=== PATIENT | male | born 1985 | race Caucasian/White ===

== ENCOUNTER 2017-02-07 09:25 | Inpatient (IN) | payer OTHER ==
[2017-02-07 12:44] VITALS: BMI 20.9
--- NOTE | 2017-02-07 13:24 | HP ---
CIWA Score - CIWA Score Nausea/Vomitin Muscle Tremors: 3 Anxiety: 3 Agitation: 3 Paroxysmal Sweats: 3 Orientation: 0-Oriented Tacttile Disturbances: 2-Mild Itch/Numbness/Burn Auditory Disturbances: 2-Mild Harshness/Frighten Visual Disturbances: 2-Mild Sensitivity Headache: 2-Mild CIWA-Ar Total Score: 23 Admission ROS BHS - HPI Chief Complaint: i am here for detox from alcohol,cocaine Allergies/Adverse Reactions: Allergies Allergy/AdvReac Type Severity Reaction Status Date / Time No Known Allergies Allergy Verified 02/07/17 13:12 History of Present Illness: this 31 years old male with alcohol and cocaine dependence,seeking detox,last treatment [facility] 09/29 to 10/02/16 has multiple admissions in the past on suboxone maintenance 4/1 mgm in am and 2 of the 4/1mgs at night weight loss depression longest period of sobriety 10 months Exam Limitations: No Limitations - Ebola screening Have you traveled outside of the country in the last 21 days: No Have you had contact with anyone from an Ebola affected area: No Have you been sick,other than usual withdrawal symptoms: No Do you have a fever: No - Review of Systems Constitutional: Loss of Appetite, Malaise, Night Sweats, Changes in sleep, Weakness, Unintentional Wgt. Loss EENT: reports: Hearing Loss, Nose Congestion Respiratory: reports: No Symptoms reported Cardiac: reports: No Symptoms Reported, Palpitations GI: reports: Nausea, Poor Appetite, Vomiting, Abdominal cramping : reports: No Symptoms Reported Musculoskeletal: reports: Back Pain, Muscle Pain Integumentary: reports: Dryness Neuro: reports: Headache, Tremors Endocrine: reports: No Symptoms Reported Hematology: reports: No Symptoms Reported Psychiatric: reports: Depressed Other Systems: Reviewed and Negative Patient History - Patient Medical History Hx Anemia: No Hx Asthma: No Hx Chronic Obstructive Pulmonary Disease (COPD): No Hx Cancer: No Hx Cardiac Disorders: No Hx Congestive Heart Failure: No Hx Hypertension: No Hx Hypercholesterolemia: No Hx Pacemaker: No HX Cerebrovascular Accident: No Hx Seizures: No Hx Dementia: No Hx Diabetes: No Hx Gastrointestinal Disorders: No Hx Liver Disease: No Hx Genitourinary Disorders: No Hx Sexually Transmitted Disorders: No Hx Renal Disease (ESRD): No Hx Thyroid Disease: No Hx Human Immunodeficiency Virus (HIV): No (2015 NEGATIVE) Hx Hepatitis C: No (2016 NEGATIVE) Hx Depression: Yes Hx Suicide Attempt: No (denies) Hx Bipolar Disorder: No Hx Schizophrenia: No Other Medical History: no suicidal,no homicidal - Patient Surgical History Past Surgical History: Yes Hx Neurologic Surgery: No Hx Cataract Extraction: No Hx Cardiac Surgery: No Hx Lung Surgery: No Hx Breast Surgery: No Hx Breast Biopsy: No Hx Abdominal Surgery: No Hx Appendectomy: No Hx Cholecystectomy: No Hx Genitourinary Surgery: No Hx Section: No Hx Orthopedic Surgery: No Other Surgical History: nasal surgery in 09/2013 FOR DEVIATED SEPTUM Anesthesia Reaction: No - PPD History Previous Implant?: Yes Implanted On Prior [facility] Admission?: Yes Date: 10/02/15 Results: 3 mm PPD to be Administered?: Yes - Smoking Cessation Smoking history: Current every day smoker Have you smoked in the past 12 months: Yes Aproximately how many cigarettes per day: 40 Cigars Per Day: 0 Hx Chewing Tobacco Use: No Initiated information on smoking cessation: Yes 'Breaking Loose' booklet given: 02/07/17 - Substance & Tx. History Hx Alcohol Use: Yes Hx Substance Use: Yes Substance Use Type: Alcohol, Cocaine Hx Substance Use Treatment: Yes (last [facility] 09/29/17 to 10/03/15) - Substances Abused Alcohol Route: Oral Frequency: Daily Amount used: 3-4 pints vodka or cognac Age of first use: 16 Date of Last Use: 02/07/17 Cocaine Route: Injection Frequency: Daily Amount used: $50 Age of first use: 20 Date of Last Use: 02/06/17 Family Disease History - Family Disease History Family Disease History: Diabetes: Father ( age 32 ,aids), Mother ( age 39, aids ) Admission Physical Exam S - Vital Signs Vital Signs: Vital Signs - 24 hr 02/07/17 12:42 Temperature 97.2 F L Pulse Rate 98 H Respiratory 20 Rate Blood Pressure 121/65 - Physical General Appearance: Yes: Moderate Distress, Tremorous, Irritable, Sweating, Anxious HEENTM: Yes: CHERRIE, Pharynx Normal, Tm's normal Respiratory: Yes: Lungs Clear, Normal Breath Sounds, No Respiratory Distress Neck: Yes: Within Normal Limits, Supple, Trachea in good position Breast: Yes: Within Normal Limits Cardiology: Yes: Within Normal Limits, Regular Rhythm, Regular Rate, S1, S2 Abdominal: Yes: Within Normal Limits, Normal Bowel Sounds, Non Tender, Flat, Soft Genitourinary: Yes: Within Normal Limits Back: Yes: Within Normal Limits, Normal Inspection, Muscle Spasm Musculoskeletal: Yes: full range of Motion, Back pain, Muscle Pain Extremities: Yes: Tremors Neurological: Yes: space engineer II-XII NML intact, Fully Oriented, Alert, Motor Strength 5/5 Integumentary: Yes: Dry Lymphatic: Yes: Within Normal Limits - Diagnostic (1) Alcohol dependence with uncomplicated withdrawal Current Visit: Yes Status: Acute (2) Encounter for monitoring Suboxone maintenance therapy Current Visit: Yes Status: Acute (3) Weight decreased Current Visit: No Status: Acute (4) Cocaine dependence, uncomplicated Current Visit: Yes Status: Acute (5) Nicotine dependence Current Visit: Yes Status: Acute (6) Depression Current Visit: Yes Status: Acute Cleared for Admission [facility] - Detox or Rehab [facility] Level of Care: Medically Managed Detox Regimen/Protocol: Librium [facility] Breath Alcohol Content Breath Alcohol Content: 0.080 Urine Drug Screen - Results Drug Screen Negative: No Urine Drug Screen Results: ARCHIE-Cocaine
[2017-02-07] MEDS ORDERED: MENTHOL/PHENOL 1 EACH UD MM PRN (13:46)
[2017-02-07] MEDS ORDERED: P-EPHED 60MG/TRIPROLIDI 2.5MG TABLET PO PRN (13:46)
[2017-02-07] MEDS ORDERED: MAGNESIUM CITRATE 300 ML BOTTLE PO PRN (13:46)
[2017-02-07] MEDS ORDERED: hydrOXYzine PAMOATE 50 MG CAPSULE (FP) PO PRN (13:46)
[2017-02-07] MEDS ORDERED: LOPERAMIDE HCL 2 MG CAPSULE PO PRN (13:46)
[2017-02-07] MEDS ORDERED: guaiFENesin/D-METHORPHAN HB 10 ML UNIT-DOSE CUPS PO PRN (13:46)
[2017-02-07] MEDS ORDERED: MAG HYDROX/AL HYDROX/SIMETH 30 ML UNIT-DOSE CUP PO PRN (13:46)
[2017-02-07] MEDS ORDERED: MAGNESIUM HYDROX 2400MG/30ML ORAL SUSPENSION 30 ML CUP PO PRN (13:46)
[2017-02-07] MEDS ORDERED: chlordiazePOXIDE HCL 25 MG CAPSULE PO ONE (14:39)
[2017-02-07] MEDS: ACETAMINOPHEN 325 MG TABLET (FP) PO PRN ×2 (15:43→19:53)
[2017-02-07] MEDS: NICOTINE POLACRILEX 4 MG GUM BUC PRN ×4 (15:44→22:15)
[2017-02-07] MEDS: chlordiazePOXIDE HCL 25 MG CAPSULE PO SCH ×2 (17:17→22:15)
[2017-02-07] MEDS: BUPRENORPHINE/NALOXONE 8 MG/2 MG FILM PACKET SL SCH (17:17)
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
[2017-02-07 17:34] LABS: URINE APPEARANCE CLEAR; URINE BILIRUBIN NEGATIVE (NEGATIVE); URINE BLOOD NEGATIVE (NEGATIVE); URINE COLOR LTYELLOW; URINE GLUCOSE (UA) NEGATIVE (NEGATIVE); URINE KETONE NEGATIVE (NEGATIVE); URINE NITRITE NEGATIVE (NEGATIVE); URINE PROTEIN NEGATIVE (NEGATIVE); URINE UROBILINOGEN NEGATIVE mg/dL (0.2-1.0)
[2017-02-07] MEDS: chlordiazePOXIDE HCL 25 MG CAPSULE PO PRN (19:55)
[2017-02-07] MEDS: THIAMINE HCL 100 MG TABLET (FP) PO SCH (22:14)
[2017-02-07] MEDS: ZOLPIDEM TARTRATE 10 MG TABLET (PARK CARE ONLY) PO PRN (22:14)
[2017-02-07 22:30] LABS: URINE LEUK ESTERASE Negative (NEGATIVE)
[2017-02-08] MEDS: NICOTINE POLACRILEX 4 MG GUM BUC PRN ×8 (06:01→22:10)
[2017-02-08] MEDS: BUPRENORPHINE/NALOXONE 2 MG/0.5 MG FILM PACKET SL SCH (06:01)
[2017-02-08] MEDS: chlordiazePOXIDE HCL 25 MG CAPSULE PO SCH ×5 (06:02→22:09)
[2017-02-08 09:54] LABS: MCH 27.5 pg (25.7-33.7); MCHC 32.5 g/dl (32.0-35.9); MEAN CELL VOLUME 84.8 fl (80-96); MEAN PLT VOLUME 10.2 fl (7.5-11.1); PLATELET COUNT 190 K/MM3 (134-434); RDW 13.9 % (11.9-15.9); WHITE BLOOD COUNT 9.2 K/mm3 (4.0-10.0)
[2017-02-08] MEDS: PRENATAL VITAMINS W/ FOLIC ACID TABLET (FP) PO SCH (10:09)
--- NOTE | 2017-02-08 10:38 | PN ---
[facility] CIWA - CIWA Score Nausea/Vomitin-No Nausea/No Vomiting Muscle Tremors: 4-Moderate,w/Arms Extend Anxiety: 4-Mod. Anxious/Guarded Agitation: 4-Moderately Restless Paroxysmal Sweats: 1-Minimal Palms Moist Orientation: 0-Oriented Tacttile Disturbances: 3-Moderate Itch/Numb/Burn Auditory Disturbances: 0-None Visual Disturbances: 0-None Headache: 0-None Present CIWA-Ar Total Score: 16 S Progress Note (SOAP) Subjective: ANXIETY,MUSCLE ACHES,FATIGUE,SWEATS. Objective: 02/08/17 10:37 Vital Signs Temperature 97.5 F L 02/08/17 10:19 Pulse Rate 85 02/08/17 10:19 Respiratory Rate 20 02/08/17 10:19 Blood Pressure 110/61 02/08/17 10:19 O2 Sat by Pulse Oximetry (%) Laboratory Last Values WBC 9.2 K/mm3 (4.0-10.0) 02/08/17 06:00 RBC 4.75 M/mm3 (4.00-5.60) 02/08/17 06:00 Hgb 13.1 GM/dL (11.7-16.9) 02/08/17 06:00 Hct 40.2 % (35.4-49) 02/08/17 06:00 MCV 84.8 fl (80-96) 02/08/17 06:00 MCH 27.5 pg (25.7-33.7) 02/08/17 06:00 MCHC 32.5 g/dl (32.0-35.9) 02/08/17 06:00 RDW 13.9 % (11.9-15.9) 02/08/17 06:00 Plt Count 190 K/MM3 (134-434) D 02/08/17 06:00 MPV 10.2 fl (7.5-11.1) D 02/08/17 06:00 Urine Color Ltyellow 02/07/17 13:23 Urine Appearance Clear 02/07/17 13:23 Urine pH 5.0 (5.0-8.0) 02/07/17 13:23 Ur Specific [place] 1.006 (1.001-1.035) 02/07/17 13:23 Urine Protein Negative (NEGATIVE) 02/07/17 13:23 Urine Glucose (UA) Negative (NEGATIVE) 02/07/17 13:23 Urine Ketones Negative (NEGATIVE) 02/07/17 13:23 Urine Blood Negative (NEGATIVE) 02/07/17 13:23 Urine Nitrite Negative (NEGATIVE) 02/07/17 13:23 Urine Bilirubin Negative (NEGATIVE) 02/07/17 13:23 Urine Urobilinogen Negative mg/dL (0.2-1.0) 02/07/17 13:23 Ur Leukocyte Esterase Negative (NEGATIVE) 02/07/17 13:23 Assessment: 02/08/17 10:38 WITHDRAWAL SX Plan: CONTINUE DETOX
[2017-02-08 10:41] LABS: ALBUMIN 4.3 g/dl (3.4-5.0); ALK PHOS 50 U/L (45-117); ANION GAP 13 (8-16); BILIRUBIN,TOTAL 0.4 mg/dL (0.2-1.0); CALCIUM 8.8 mg/dL (8.5-10.1); CO2 24 mmol/L (21-32); CREATININE 0.9 mg/dL (0.7-1.3); GLUCOSE,RANDOM 83 mg/dL (74-106); SGOT/AST 13 U/L (15-37); SGPT/ALT 17 U/L (12-78); TOT PROT 7.1 g/dl (6.4-8.2)
--- NOTE | 2017-02-08 13:16 | EKG ---
Test Reason : Blood Pressure : / mmHG Vent. Rate : 075 BPM Atrial Rate : 075 BPM P-R Int : 136 ms QRS Dur : 094 ms QT Int : 382 ms P-R-T Axes : 080 084 067 degrees QTc Int : 426 ms NORMAL SINUS RHYTHM RIGHT ATRIAL ENLARGEMENT RIGHT AXIS DEVIATION BORDERLINE ECG NO PREVIOUS ECGS AVAILABLE CLINICAL CORRELATION IS RECOMMENDED Confirmed by SALENA LAWRENCE MD ([id number]) on 02/08/2017 1:16:18 PM Referred By: Confirmed By:SALENA LAWRENCE MD
[2017-02-08] MEDS: chlordiazePOXIDE HCL 25 MG CAPSULE PO PRN ×2 (15:28→19:57)
[2017-02-08] MEDS: BUPRENORPHINE/NALOXONE 8 MG/2 MG FILM PACKET SL SCH (17:13)
[2017-02-08] MEDS: IBUPROFEN 400 MG TABLET (FP) PO PRN (20:00)
[2017-02-08] MEDS: ZOLPIDEM TARTRATE 10 MG TABLET (PARK CARE ONLY) PO PRN (22:09)
[2017-02-08] MEDS: THIAMINE HCL 100 MG TABLET (FP) PO SCH (22:09)
[2017-02-09] MEDS: chlordiazePOXIDE HCL 25 MG CAPSULE PO SCH ×2 (06:14→10:09)
[2017-02-09] MEDS: BUPRENORPHINE/NALOXONE 2 MG/0.5 MG FILM PACKET SL SCH (06:14)
[2017-02-09] MEDS: NICOTINE POLACRILEX 4 MG GUM BUC PRN ×8 (06:17→23:53)
[2017-02-09] MEDS: ACETAMINOPHEN 325 MG TABLET (FP) PO PRN ×2 (07:26→22:06)
[2017-02-09] MEDS: PRENATAL VITAMINS W/ FOLIC ACID TABLET (FP) PO SCH (10:08)
--- NOTE | 2017-02-09 10:33 | PN ---
[facility] CIWA - CIWA Score Nausea/Vomitin-No Nausea/No Vomiting Muscle Tremors: 4-Moderate,w/Arms Extend Anxiety: 4-Mod. Anxious/Guarded Agitation: 4-Moderately Restless Paroxysmal Sweats: 1-Minimal Palms Moist Orientation: 0-Oriented Tacttile Disturbances: 3-Moderate Itch/Numb/Burn Auditory Disturbances: 0-None Visual Disturbances: 0-None Headache: 0-None Present CIWA-Ar Total Score: 16 BHS Progress Note (SOAP) Subjective: ANXIETY,SWEATS, FATIGUE. Objective: 02/09/17 10:32 Vital Signs Temperature 98.4 F 02/09/17 09:48 Pulse Rate 80 02/09/17 09:48 Respiratory Rate 18 02/09/17 09:48 Blood Pressure 112/64 02/09/17 09:48 O2 Sat by Pulse Oximetry (%) Laboratory Last Values WBC 9.2 K/mm3 (4.0-10.0) 02/08/17 06:00 RBC 4.75 M/mm3 (4.00-5.60) 02/08/17 06:00 Hgb 13.1 GM/dL (11.7-16.9) 02/08/17 06:00 Hct 40.2 % (35.4-49) 02/08/17 06:00 MCV 84.8 fl (80-96) 02/08/17 06:00 MCH 27.5 pg (25.7-33.7) 02/08/17 06:00 MCHC 32.5 g/dl (32.0-35.9) 02/08/17 06:00 RDW 13.9 % (11.9-15.9) 02/08/17 06:00 Plt Count 190 K/MM3 (134-434) D 02/08/17 06:00 MPV 10.2 fl (7.5-11.1) D 02/08/17 06:00 Sodium 140 mmol/L (136-145) 02/08/17 06:00 Potassium 4.1 mmol/L (3.5-5.1) 02/08/17 06:00 Chloride 103 mmol/L (98-107) 02/08/17 06:00 Carbon Dioxide 24 mmol/L (21-32) 02/08/17 06:00 Anion Gap 13 (8-16) 02/08/17 06:00 BUN 17 mg/dL (7-18) 02/08/17 06:00 Creatinine 0.9 mg/dL (0.7-1.3) 02/08/17 06:00 Creat Clearance w eGFR > 60 (>60) 02/08/17 06:00 Random Glucose 83 mg/dL (74-106) D 02/08/17 06:00 Calcium 8.8 mg/dL (8.5-10.1) 02/08/17 06:00 Total Bilirubin 0.4 mg/dL (0.2-1.0) D 02/08/17 06:00 AST 13 U/L (15-37) L D 02/08/17 06:00 ALT 17 U/L (12-78) 02/08/17 06:00 Alkaline Phosphatase 50 U/L (45-117) D 02/08/17 06:00 Total Protein 7.1 g/dl (6.4-8.2) 02/08/17 06:00 Albumin 4.3 g/dl (3.4-5.0) 02/08/17 06:00 Urine Color Ltyellow 02/07/17 13:23 Urine Appearance Clear 02/07/17 13:23 Urine pH 5.0 (5.0-8.0) 02/07/17 13:23 Ur Specific [place] 1.006 (1.001-1.035) 02/07/17 13:23 Urine Protein Negative (NEGATIVE) 02/07/17 13:23 Urine Glucose (UA) Negative (NEGATIVE) 02/07/17 13:23 Urine Ketones Negative (NEGATIVE) 02/07/17 13:23 Urine Blood Negative (NEGATIVE) 02/07/17 13:23 Urine Nitrite Negative (NEGATIVE) 02/07/17 13:23 Urine Bilirubin Negative (NEGATIVE) 02/07/17 13:23 Urine Urobilinogen Negative mg/dL (0.2-1.0) 02/07/17 13:23 Ur Leukocyte Esterase Negative (NEGATIVE) 02/07/17 13:23 RPR Titer Nonreactive (NONREACTIVE) 02/08/17 06:00 Assessment: 02/09/17 10:33 WITHDRAWAL SX Plan: CONTINUE DETOX
[2017-02-09] MEDS: chlordiazePOXIDE HCL 25 MG CAPSULE PO PRN (12:13)
[2017-02-09] MEDS: BUPRENORPHINE/NALOXONE 8 MG/2 MG FILM PACKET SL SCH (17:07)
[2017-02-09] MEDS: chlordiazePOXIDE 5 MG CAPSULE PO SCH ×2 (17:07→22:05)
[2017-02-09] MEDS: ZOLPIDEM TARTRATE 10 MG TABLET (PARK CARE ONLY) PO PRN (22:05)
[2017-02-09] MEDS: THIAMINE HCL 100 MG TABLET (FP) PO SCH (22:05)
[2017-02-10] MEDS: chlordiazePOXIDE 5 MG CAPSULE PO SCH ×2 (05:09→10:08)
[2017-02-10] MEDS: NICOTINE POLACRILEX 4 MG GUM BUC PRN ×7 (05:11→20:10)
[2017-02-10] MEDS: BUPRENORPHINE/NALOXONE 2 MG/0.5 MG FILM PACKET SL SCH (07:52)
[2017-02-10] MEDS: chlordiazePOXIDE HCL 25 MG CAPSULE PO PRN ×2 (08:38→13:22)
[2017-02-10] MEDS: ACETAMINOPHEN 325 MG TABLET (FP) PO PRN ×3 (10:06→21:25)
[2017-02-10] MEDS: PRENATAL VITAMINS W/ FOLIC ACID TABLET (FP) PO SCH (10:07)
--- NOTE | 2017-02-10 14:47 | PN ---
BHS Progress Note (SOAP) Subjective: Anxious, H/A, Body Aches, Sweating. Objective: PT. A & O X 3, OBSERVED AMBULATING ON UNIT. NO ACUTE DISTRESS. 02/10/17 14:46 Vital Signs Temperature 97.6 F 02/10/17 08:58 Pulse Rate 74 02/10/17 08:58 Respiratory Rate 18 02/10/17 08:58 Blood Pressure 120/68 02/10/17 08:58 O2 Sat by Pulse Oximetry (%) Laboratory Tests 02/07/17 02/08/17 02/08/17 13:23 06:00 06:00 WBC 9.2 RBC 4.75 Hgb 13.1 Hct 40.2 MCV 84.8 MCH 27.5 MCHC 32.5 RDW 13.9 Plt Count 190 D MPV 10.2 D Sodium 140 Potassium 4.1 Chloride 103 Carbon Dioxide 24 Anion Gap 13 BUN 17 Creatinine 0.9 Creat Clearance w eGFR > 60 Random Glucose 83 D Calcium 8.8 Total Bilirubin 0.4 D AST 13 L D ALT 17 Alkaline Phosphatase 50 D Total Protein 7.1 Albumin 4.3 Urine Color Ltyellow Urine Appearance Clear Urine pH 5.0 Ur Specific [place] 1.006 Urine Protein Negative Urine Glucose (UA) Negative Urine Ketones Negative Urine Blood Negative Urine Nitrite Negative Urine Bilirubin Negative Urine Urobilinogen Negative Ur Leukocyte Esterase Negative RPR Titer 02/08/17 06:00 WBC RBC Hgb Hct MCV MCH MCHC RDW Plt Count MPV Sodium Potassium Chloride Carbon Dioxide Anion Gap BUN Creatinine Creat Clearance w eGFR Random Glucose Calcium Total Bilirubin AST ALT Alkaline Phosphatase Total Protein Albumin Urine Color Urine Appearance Urine pH Ur Specific [place] Urine Protein Urine Glucose (UA) Urine Ketones Urine Blood Urine Nitrite Urine Bilirubin Urine Urobilinogen Ur Leukocyte Esterase RPR Titer Nonreactive LABS NOTED. Assessment: 02/10/17 14:46 WITHDRAWAL SYMPTOMS. Plan: CONTINUE DETOX. INCREASE DAILY PO FLUID INTAKE.
[2017-02-10] MEDS: IBUPROFEN 400 MG TABLET (FP) PO PRN (15:00)
[2017-02-10] MEDS: chlordiazePOXIDE HCL 10 MG CAPSULE PO SCH ×2 (17:18→22:03)
[2017-02-10] MEDS: BUPRENORPHINE/NALOXONE 8 MG/2 MG FILM PACKET SL SCH (17:18)
[2017-02-10] MEDS: THIAMINE HCL 100 MG TABLET (FP) PO SCH (22:03)
[2017-02-11] MEDS: NICOTINE POLACRILEX 4 MG GUM BUC PRN ×4 (00:39→10:10)
[2017-02-11] MEDS: chlordiazePOXIDE HCL 10 MG CAPSULE PO SCH ×2 (05:34→10:10)
[2017-02-11] MEDS: BUPRENORPHINE/NALOXONE 2 MG/0.5 MG FILM PACKET SL SCH (06:49)
[2017-02-11] MEDS: IBUPROFEN 400 MG TABLET (FP) PO PRN (06:53)
--- NOTE | 2017-02-11 09:44 | PN ---
S Progress Note (SOAP) Subjective: OOB AMBULATING ON HALLWAY WITH NO DISTRESS. ALERT O X 3. DECREASED WITHDRAWAL SX. Objective: 02/11/17 09:43 Vital Signs Temperature 97.1 F L 02/11/17 06:00 Pulse Rate 63 02/11/17 06:00 Respiratory Rate 18 02/11/17 06:00 Blood Pressure 105/58 02/11/17 06:00 O2 Sat by Pulse Oximetry (%) Laboratory Last Values WBC 9.2 K/mm3 (4.0-10.0) 02/08/17 06:00 RBC 4.75 M/mm3 (4.00-5.60) 02/08/17 06:00 Hgb 13.1 GM/dL (11.7-16.9) 02/08/17 06:00 Hct 40.2 % (35.4-49) 02/08/17 06:00 MCV 84.8 fl (80-96) 02/08/17 06:00 MCH 27.5 pg (25.7-33.7) 02/08/17 06:00 MCHC 32.5 g/dl (32.0-35.9) 02/08/17 06:00 RDW 13.9 % (11.9-15.9) 02/08/17 06:00 Plt Count 190 K/MM3 (134-434) D 02/08/17 06:00 MPV 10.2 fl (7.5-11.1) D 02/08/17 06:00 Sodium 140 mmol/L (136-145) 02/08/17 06:00 Potassium 4.1 mmol/L (3.5-5.1) 02/08/17 06:00 Chloride 103 mmol/L (98-107) 02/08/17 06:00 Carbon Dioxide 24 mmol/L (21-32) 02/08/17 06:00 Anion Gap 13 (8-16) 02/08/17 06:00 BUN 17 mg/dL (7-18) 02/08/17 06:00 Creatinine 0.9 mg/dL (0.7-1.3) 02/08/17 06:00 Creat Clearance w eGFR > 60 (>60) 02/08/17 06:00 Random Glucose 83 mg/dL (74-106) D 02/08/17 06:00 Calcium 8.8 mg/dL (8.5-10.1) 02/08/17 06:00 Total Bilirubin 0.4 mg/dL (0.2-1.0) D 02/08/17 06:00 AST 13 U/L (15-37) L D 02/08/17 06:00 ALT 17 U/L (12-78) 02/08/17 06:00 Alkaline Phosphatase 50 U/L (45-117) D 02/08/17 06:00 Total Protein 7.1 g/dl (6.4-8.2) 02/08/17 06:00 Albumin 4.3 g/dl (3.4-5.0) 02/08/17 06:00 Urine Color Ltyellow 02/07/17 13:23 Urine Appearance Clear 02/07/17 13:23 Urine pH 5.0 (5.0-8.0) 02/07/17 13:23 Ur Specific [place] 1.006 (1.001-1.035) 02/07/17 13:23 Urine Protein Negative (NEGATIVE) 02/07/17 13:23 Urine Glucose (UA) Negative (NEGATIVE) 02/07/17 13:23 Urine Ketones Negative (NEGATIVE) 02/07/17 13:23 Urine Blood Negative (NEGATIVE) 02/07/17 13:23 Urine Nitrite Negative (NEGATIVE) 02/07/17 13:23 Urine Bilirubin Negative (NEGATIVE) 02/07/17 13:23 Urine Urobilinogen Negative mg/dL (0.2-1.0) 02/07/17 13:23 Ur Leukocyte Esterase Negative (NEGATIVE) 02/07/17 13:23 RPR Titer Nonreactive (NONREACTIVE) 02/08/17 06:00 Assessment: 02/11/17 09:44 DECREASED W/S Plan: CONTINUE DETOX
[2017-02-11] MEDS: PRENATAL VITAMINS W/ FOLIC ACID TABLET (FP) PO SCH (10:10)
[2017-02-11 10:23] VITALS: BP 117/67; PULSE 85; TEMP 97.3
--- NOTE | 2017-02-11 11:12 | DS ---
[facility] Detox Discharge Summary Admission Date: 02/07/17 Discharge Date: 02/11/17 - History Present History: Alcohol Dependence, Cocaine Dependence, MMTP (SUBOXONE MAINTENANCE) Additional Comments: DETOX COMPLETED. ALERT O X 3. NAD. PT TO BE PICKED UP BY [facility] FOR GOING INTO REHAB TODAY. Pertinent Past History: HX DEPRESSION - Physical Exam Results Vital Signs: Vital Signs Temperature 97.3 F L 02/11/17 10:00 Pulse Rate 85 02/11/17 10:00 Respiratory Rate 18 02/11/17 10:00 Blood Pressure 117/67 02/11/17 10:00 O2 Sat by Pulse Oximetry (%) Pertinent Admission Physical Exam Findings: WITHDRAWAL SX Laboratory Last Values WBC 9.2 K/mm3 (4.0-10.0) 02/08/17 06:00 RBC 4.75 M/mm3 (4.00-5.60) 02/08/17 06:00 Hgb 13.1 GM/dL (11.7-16.9) 02/08/17 06:00 Hct 40.2 % (35.4-49) 02/08/17 06:00 MCV 84.8 fl (80-96) 02/08/17 06:00 MCH 27.5 pg (25.7-33.7) 02/08/17 06:00 MCHC 32.5 g/dl (32.0-35.9) 02/08/17 06:00 RDW 13.9 % (11.9-15.9) 02/08/17 06:00 Plt Count 190 K/MM3 (134-434) D 02/08/17 06:00 MPV 10.2 fl (7.5-11.1) D 02/08/17 06:00 Sodium 140 mmol/L (136-145) 02/08/17 06:00 Potassium 4.1 mmol/L (3.5-5.1) 02/08/17 06:00 Chloride 103 mmol/L (98-107) 02/08/17 06:00 Carbon Dioxide 24 mmol/L (21-32) 02/08/17 06:00 Anion Gap 13 (8-16) 02/08/17 06:00 BUN 17 mg/dL (7-18) 02/08/17 06:00 Creatinine 0.9 mg/dL (0.7-1.3) 02/08/17 06:00 Creat Clearance w eGFR > 60 (>60) 02/08/17 06:00 Random Glucose 83 mg/dL (74-106) D 02/08/17 06:00 Calcium 8.8 mg/dL (8.5-10.1) 02/08/17 06:00 Total Bilirubin 0.4 mg/dL (0.2-1.0) D 02/08/17 06:00 AST 13 U/L (15-37) L D 02/08/17 06:00 ALT 17 U/L (12-78) 02/08/17 06:00 Alkaline Phosphatase 50 U/L (45-117) D 02/08/17 06:00 Total Protein 7.1 g/dl (6.4-8.2) 02/08/17 06:00 Albumin 4.3 g/dl (3.4-5.0) 02/08/17 06:00 Urine Color Ltyellow 02/07/17 13:23 Urine Appearance Clear 02/07/17 13:23 Urine pH 5.0 (5.0-8.0) 02/07/17 13:23 Ur Specific [place] 1.006 (1.001-1.035) 02/07/17 13:23 Urine Protein Negative (NEGATIVE) 02/07/17 13:23 Urine Glucose (UA) Negative (NEGATIVE) 02/07/17 13:23 Urine Ketones Negative (NEGATIVE) 02/07/17 13:23 Urine Blood Negative (NEGATIVE) 02/07/17 13:23 Urine Nitrite Negative (NEGATIVE) 02/07/17 13:23 Urine Bilirubin Negative (NEGATIVE) 02/07/17 13:23 Urine Urobilinogen Negative mg/dL (0.2-1.0) 02/07/17 13:23 Ur Leukocyte Esterase Negative (NEGATIVE) 02/07/17 13:23 RPR Titer Nonreactive (NONREACTIVE) 02/08/17 06:00 - Treatment Hospital Course: Detox Protocol Followed, Detoxed Safely, Responded well, Discharged Condition Good, Rehab Referral Accepted Patient has Accepted a Rehab Referral to: [facility] - Medication Discharge Medications: Ambulatory Orders Buprenorphine HCl/Naloxone HCl [Suboxone 4 mg-1 mg Sl Film] 1 each SL DAILY Buprenorphine HCl/Naloxone HCl [Suboxone 4 mg-1 mg Sl Film] 2 each SL HS - Diagnosis (1) Alcohol dependence with uncomplicated withdrawal Current Visit: Yes Status: Acute (2) Cocaine dependence, uncomplicated Current Visit: Yes Status: Acute (3) Nicotine dependence Current Visit: Yes Status: Acute (4) Encounter for monitoring Suboxone maintenance therapy Current Visit: Yes Status: Chronic (5) Weight decreased Current Visit: Yes Status: Acute - AMA Did Patient Leave Against Medical Advice: No
== END 2017-02-11 12:06 | disposition home or self-care (01) | DRG 773 ==
LOC: YASAS 09:25 → Y3N 13:40
PROVIDERS: ADMIT Internal Medicine; ATTEND Internal Medicine
PROC: HZ2ZZZZ Detoxification Services for Substance Abuse Treatment (ICD-10-PCS; principal; 2017-02-07)
DX: F10.230 Alcohol dependence with withdrawal, uncomplicated (principal); F11.20 Opioid dependence, uncomplicated; F14.20 Cocaine dependence, uncomplicated; F17.210 Nicotine dependence, cigarettes, uncomplicated; F19.24 Other psychoactive substance dependence with psychoactive substance-induced mood disorder; F32.9 Major depressive disorder, single episode, unspecified; G47.00 Insomnia, unspecified; Z87.891 Personal history of nicotine dependence
CPT/HCPCS: 36415; 80053; 81003; 85027; 86593; 93005; 93010

== ENCOUNTER 2017-06-14 10:05 | Inpatient (IN) | payer OTHER ==
[2017-06-14 10:08] VITALS: BMI 22.6
--- NOTE | 2017-06-14 12:02 | HP ---
CIWA Score - CIWA Score Nausea/Vomitin-No Nausea/No Vomiting Muscle Tremors: 4-Moderate,w/Arms Extend Anxiety: 4-Mod. Anxious/Guarded Agitation: 4-Moderately Restless Paroxysmal Sweats: 1-Minimal Palms Moist Orientation: 0-Oriented Tacttile Disturbances: 3-Moderate Itch/Numb/Burn (BONE ACHE/HOT/COLD FLASHES) Auditory Disturbances: 0-None Visual Disturbances: 0-None Headache: 0-None Present CIWA-Ar Total Score: 16 Admission ROS S - HPI Chief Complaint: WITHDRAWAL SX FROM ALCOHOL. Allergies/Adverse Reactions: Allergies Allergy/AdvReac Type Severity Reaction Status Date / Time No Known Allergies Allergy Verified 06/14/17 11:43 History of Present Illness: 31 Y/O MALE WITH A HX OF SPORADIC HEROIN USE AND ALCOHOL DEPENDENCE ON SUBOXONE SEEKING DETOX [place]. REPORTS RAN OUT OF SUBOXONE ON Tuesday06/03/17 DUE TO INSURANCE PROBLEMS. USED HEROIN BECAUSE WAS FEELING SICK FROM WITHDRAWAL. REPORTS ALSO DRINKING ALCOHOL UNCONTROLLABLY AND WANTS TREATMENT. Exam Limitations: No Limitations - Ebola screening Have you traveled outside of the country in the last 21 days: No Have you had contact with anyone from an Ebola affected area: No Have you been sick,other than usual withdrawal symptoms: No Do you have a fever: No - Review of Systems Constitutional: Chills, Loss of Appetite, Night Sweats, Changes in sleep, Unintentional Wgt. Loss EENT: reports: Blurred Vision, Tearing, Nose Congestion, Dental Problems ( CAVITIES--SEEING A DENTIST CURRENTLY.) Respiratory: reports: No Symptoms reported Cardiac: reports: Lightheadedness GI: reports: Constipated, Diarrhea, Nausea, Poor Appetite, Poor Fluid Intake, Vomiting : reports: Dysuria Musculoskeletal: reports: Back Pain, Joint Pain, Muscle Pain Integumentary: reports: Bruising (INNER ELBOWS--IVD INJ SITES) Neuro: reports: Headache (HX MIGRAINE HEADACHES), Tremors, Unsteady Gait, Dizziness Endocrine: reports: No Symptoms Reported Hematology: reports: No Symptoms Reported Psychiatric: reports: Orientated x3, Anxious Other Systems: Reviewed and Negative Patient History - Patient Medical History Hx Anemia: No Hx Asthma: No Hx Chronic Obstructive Pulmonary Disease (COPD): No Hx Cancer: No Hx Cardiac Disorders: No Hx Congestive Heart Failure: No Hx Hypertension: No Hx Hypercholesterolemia: No Hx Pacemaker: No HX Cerebrovascular Accident: No Hx Seizures: No Hx Dementia: No Hx Diabetes: No Hx Gastrointestinal Disorders: No Hx Liver Disease: No Hx Genitourinary Disorders: No Hx Sexually Transmitted Disorders: No Hx Renal Disease (ESRD): No Hx Thyroid Disease: No Hx Human Immunodeficiency Virus (HIV): No (2017 NEGATIVE HX) Hx Hepatitis C: No (2017 NEGATIVE HX) Hx Depression: Yes (AND ANXIETY) Hx Suicide Attempt: No (DENIES S/I) Hx Bipolar Disorder: No Hx Schizophrenia: No - Patient Surgical History Past Surgical History: Yes Hx Neurologic Surgery: No Hx Cataract Extraction: No Hx Cardiac Surgery: No Hx Lung Surgery: No Hx Breast Surgery: No Hx Breast Biopsy: No Hx Abdominal Surgery: No Hx Appendectomy: No Hx Cholecystectomy: No Hx Genitourinary Surgery: No Hx Orthopedic Surgery: No Other Surgical History: nasal surgery in 09/2013 FOR DEVIATED SEPTUM Anesthesia Reaction: No - PPD History Previous Implant?: Yes Implanted On Prior [facility] Admission?: Yes Date: 02/09/17 Results: 3 mm PPD to be Administered?: No - Reproductive History Patient is a Female of Child Bearing Age (11 -55 yrs old): No (MALE) - Smoking Cessation Smoking history: Current every day smoker Have you smoked in the past 12 months: Yes Aproximately how many cigarettes per day: 40 Cigars Per Day: 0 Hx Chewing Tobacco Use: No Initiated information on smoking cessation: Yes 'Breaking Loose' booklet given: 06/14/17 - Substance & Tx. History Hx Alcohol Use: Yes (VODKA/COGNAC/BEER) Hx Substance Use: Yes (HEROIN) Substance Use Type: Alcohol, Heroin Hx Substance Use Treatment: Yes (LAST TX AT [facility]) - Substances Abused Heroin Route: Injection Frequency: Daily Amount used: 3 bags Age of first use: 23 Date of Last Use: 06/13/17 Alcohol-cognac/vodka/beer Route: Oral Frequency: Daily Amount used: 3-4 pts./1-6 pk. Age of first use: 16 Date of Last Use: 06/14/17 Family Disease History - Family Disease History Family Disease History: Diabetes: Father ( age 32 ,aids), Mother ( age 39, aids ) Admission Physical Exam BHS - Vital Signs Vital Signs: Vital Signs - 24 hr 06/14/17 10:06 Temperature 97.1 F L Pulse Rate 78 Respiratory 18 Rate Blood Pressure 132/72 - Physical General Appearance: Yes: Moderate Distress, Irritable, Anxious HEENTM: Yes: EOMI, Normocephalic, CHERRIE, Pharynx Normal Respiratory: Yes: Chest Non-Tender, Lungs Clear, Normal Breath Sounds, No Respiratory Distress Neck: Yes: No masses,lesions,Nodules, Supple, Trachea in good position Breast: Yes: Breast Exam Deferred Cardiology: Yes: Regular Rhythm, Regular Rate, S1, S2 Abdominal: Yes: Normal Bowel Sounds, Non Tender, Flat, Soft Genitourinary: Yes: Other (N/C) Back: Yes: Within Normal Limits Musculoskeletal: Yes: full range of Motion, Gait Steady Extremities: Yes: Normal Range of Motion, Non-Tender, Tremors Neurological: Yes: 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 NO REDNESS OR SWELLING.) Lymphatic: Yes: Within Normal Limits - Diagnostic (1) Alcohol dependence with uncomplicated withdrawal Current Visit: Yes Status: Acute (2) Nicotine dependence Current Visit: Yes Status: Acute (3) Encounter for monitoring Suboxone maintenance therapy Current Visit: Yes Status: Chronic (4) Uncomplicated sedative, hypnotic or anxiolytic withdrawal Current Visit: No Status: Inactive (5) Depression with anxiety Current Visit: Yes Status: Chronic Cleared for Admission [facility] - Detox or Rehab [facility] Level of Care: Medically Managed Detox Regimen/Protocol: Valium [facility] Breath Alcohol Content Breath Alcohol Content: 0.008 Urine Drug Screen - Results Drug Screen Negative: No Urine Drug Screen Results: OPI-Opiates
[2017-06-14] MEDS ORDERED: MAGNESIUM HYDROX 2400MG/30ML ORAL SUSPENSION 30 ML CUP PO PRN (12:31)
[2017-06-14] MEDS ORDERED: MAG HYDROX/AL HYDROX/SIMETH 30 ML UNIT-DOSE CUP PO PRN (12:31)
[2017-06-14] MEDS ORDERED: MENTHOL/PHENOL 1 EACH UD MM PRN (12:31)
[2017-06-14] MEDS ORDERED: P-EPHED 60MG/TRIPROLIDI 2.5MG TABLET PO PRN (12:31)
[2017-06-14] MEDS ORDERED: ACETAMINOPHEN 325 MG TABLET (FP) PO PRN (12:31)
[2017-06-14] MEDS ORDERED: LOPERAMIDE HCL 2 MG CAPSULE PO PRN (12:31)
[2017-06-14] MEDS ORDERED: guaiFENesin/D-METHORPHAN HB 10 ML UNIT-DOSE CUPS PO PRN (12:31)
[2017-06-14] MEDS ORDERED: MAGNESIUM CITRATE 300 ML BOTTLE PO PRN (12:31)
[2017-06-14] MEDS ORDERED: diazePAM 5 MG TABLET PO ONE (12:40)
[2017-06-14] MEDS: diazePAM 5 MG TABLET PO SCH ×2 (13:30→22:23)
[2017-06-14] MEDS: NICOTINE 21 MG/24 HOURS TOPICAL PATCH TD SCH (13:30)
[2017-06-14] MEDS: IBUPROFEN 400 MG TABLET (FP) PO PRN (13:36)
[2017-06-14] MEDS: NICOTINE POLACRILEX 4 MG GUM BUC PRN ×2 (13:36→19:18)
[2017-06-14 17:05] LABS: HEMOGLOBIN 13.4 GM/dL (11.7-16.9); MCH 28.4 pg (25.7-33.7); MCHC 33.5 g/dl (32.0-35.9); MEAN CELL VOLUME 84.6 fl (80-96); MEAN PLT VOLUME 9.8 fl (7.5-11.1); PLATELET COUNT 229 K/MM3 (134-434); RBC 4.73 M/mm3 (4.00-5.60); WHITE BLOOD COUNT 6.9 K/mm3 (4.0-10.0)
--- NOTE | 2017-06-14 17:05 | CONSULT ---
[facility] Psychiatric Consult - Data Date of interview: 06/14/17 Admission source: [facility] Identifying data: Another admission to [facility] for this 31 y/o Citizen Of [place]- German male seeking detox treatment on for opioid and alcohol dependence.Patient is single without children,domiciled,currently unemployed and supported by relatives. Substance Abuse History: Confirmed by the patient in this interview. Details in current [facility] report : Smoking history: Current every day smoker. Have you smoked in the past 12 months: Yes. Aproximately how many cigarettes per day: 40. Cigars Per Day: 0. Hx Chewing Tobacco Use: No. Initiated information on smoking cessation: Yes. 'Breaking Loose' booklet given: 06/14/17. - Substance & Tx. History. Hx Alcohol Use: Yes (VODKA/COGNAC/BEER). Hx Substance Use: Yes (HEROIN). Substance Use Type: Alcohol, Heroin. Hx Substance Use Treatment: Yes (LAST TX AT [facility]). - Substances Abused. Heroin. Route: Injection. Frequency: Daily. Amount used: 3 bags. Age of first use: 23. Date of Last Use : 06/13/17. Alcohol-cognac/vodka/beer. Route: Oral. Frequency: Daily. Amount used: 3-4 pts./1-6 pk. Age of first use: 16. Date of Last Use: 06/14/17 Medical History: Patient admits to good general health. History of surgery for deviated septum (2013). Psychiatric History: History of one psychiatric hospitalization ([place]) in 2012.Described by patient as being precipitated by social issues (inclement weather and homelessness).Diagnosed with MDD and Anxiety Disorder.Prescribed wellbutrin,gabapentin and trazodone.Dropped out of [facility]PD care more than six months ago.Mr Bradley declares that he has been off medications (own decision) for several months.Denies history of suicide attempts. Physical/Sexual Abuse/Trauma History: Patient denies. Additional Comment: Urine Drug Screen Results: OPI-Opiates.Noted. Mental Status Exam - Mental Status Exam Alert and Oriented to: Time, Place, Person Cognitive Function: Good Patient Appearance: Well Groomed Mood: Nervous, Withdrawn Affect: Appropriate, Normal Range Patient Behavior: Fatigued, Appropriate, Cooperative Speech Pattern: Clear, Appropriate Voice Loudness: Normal Thought Process: Intact, Goal Oriented Thought Disorder: Not Present Hallucinations: Denies Suicidal Ideation: Denies Homicidal Ideation: Denies Insight/Judgement: Poor Sleep: Poorly, Difficulty falling asleep Appetite: Good Muscle strength/Tone: Normal Gait/Station: Normal Psychiatric Findings - Problem List ([place] 1, 2,3) (1) Alcohol dependence with uncomplicated withdrawal Current Visit: Yes Status: Acute (2) Opioid dependence on agonist therapy Current Visit: Yes Status: Acute (3) Nicotine dependence Current Visit: Yes Status: Acute (4) Drug-induced mood disorder Current Visit: Yes Status: Acute (5) Insomnia Current Visit: Yes Status: Acute - Initial Treatment Plan Initial Treatment Plan: Psychoeducation.Records revisited.Sleep hygiene.Detoxification in progress.Ambien 10 mg po hs.Side effects/benefits discussed with patient.Verbal consent : given.Observation.
[2017-06-14 17:06] LABS: ALBUMIN 4.4 g/dl (3.4-5.0); ANION GAP 11 (8-16); BLOOD UREA NITROGEN 11 mg/dL (7-18); CALCIUM 9.3 mg/dL (8.5-10.1); CHLORIDE 102 mmol/L (98-107); CO2 27 mmol/L (21-32); GLUCOSE,RANDOM 97 mg/dL (74-106); POTASSIUM 4.2 mmol/L (3.5-5.1); SGOT/AST 12 U/L (15-37); SGPT/ALT 18 U/L (12-78); SODIUM 140 mmol/L (136-145)
[2017-06-14 17:08] LABS: ALK PHOS 56 U/L (45-117); BILIRUBIN,TOTAL 0.4 mg/dL (0.2-1.0); CREATININE 0.7 mg/dL (0.7-1.3); TOT PROT 7.5 g/dl (6.4-8.2)
[2017-06-14] MEDS: diazePAM 5 MG TABLET PO PRN (17:17)
[2017-06-14] MEDS ORDERED: BUPRENORPHINE/NALOXONE 8 MG/2 MG FILM PACKET SL SCH ×2 (18:00→22:00)
[2017-06-14] MEDS ORDERED: BUPRENORPHINE/NALOXONE 2 MG/0.5 MG FILM PACKET SL ONE (18:00)
[2017-06-14 19:14] LABS: URINE APPEARANCE CLEAR; URINE BILIRUBIN NEGATIVE (<2.0 mg/dL); URINE BLOOD NEGATIVE (NEGATIVE); URINE COLOR LTYELLOW; URINE GLUCOSE (UA) NEGATIVE (NEGATIVE); URINE KETONE NEGATIVE (NEGATIVE); URINE LEUK ESTERASE NEGATIVE (NEGATIVE); URINE NITRITE NEGATIVE (NEGATIVE); URINE PROTEIN NEGATIVE (NEGATIVE); URINE UROBILINOGEN NEGATIVE mg/dL (0.2-1.0)
[2017-06-14] MEDS ORDERED: BUPRENORPHINE/NALOXONE 8 MG/2 MG FILM PACKET SL ONE (21:45)
[2017-06-14] MEDS ORDERED: MELATONIN 5 MG TABLETS PO PRN (22:00)
[2017-06-14] MEDS: THIAMINE HCL 100 MG TABLET (FP) PO SCH (22:25)
[2017-06-14] MEDS: ZOLPIDEM TARTRATE 10 MG TABLET (PARK CARE ONLY) PO PRN (22:25)
[2017-06-15] MEDS: diazePAM 5 MG TABLET PO SCH ×3 (05:26→22:43)
[2017-06-15] MEDS: BUPRENORPHINE/NALOXONE 8 MG/2 MG FILM PACKET SL SCH ×2 (05:26→17:12)
[2017-06-15] MEDS: NICOTINE POLACRILEX 4 MG GUM BUC PRN ×5 (05:30→22:46)
[2017-06-15] MEDS: NICOTINE 21 MG/24 HOURS TOPICAL PATCH TD SCH (10:43)
[2017-06-15] MEDS: diazePAM 5 MG TABLET PO PRN ×2 (10:43→19:15)
[2017-06-15] MEDS: PRENATAL VITAMINS W/ FOLIC ACID TABLET (FP) PO SCH (10:43)
--- NOTE | 2017-06-15 10:53 | EKG ---
Test Reason : Blood Pressure : / mmHG Vent. Rate : 070 BPM Atrial Rate : 070 BPM P-R Int : 136 ms QRS Dur : 094 ms QT Int : 392 ms P-R-T Axes : 075 076 053 degrees QTc Int : 423 ms NORMAL SINUS RHYTHM POSSIBLE LEFT ATRIAL ENLARGEMENT BORDERLINE ECG WHEN COMPARED WITH ECG OF 07-FEB-2017 16:47, NO SIGNIFICANT CHANGE WAS FOUND Confirmed by ROMMEL MARTINEZ, FEDE ([id number]) on 06/15/2017 10:53:17 AM Referred By: Confirmed By:FEDE CARNEY MD
--- NOTE | 2017-06-15 13:08 | PN ---
S CIWA - CIWA Score Nausea/Vomitin-No Nausea/No Vomiting Muscle Tremors: 3 Anxiety: 4-Mod. Anxious/Guarded Agitation: 2 Paroxysmal Sweats: 3 Orientation: 0-Oriented Tacttile Disturbances: 2-Mild Itch/Numbness/Burn Auditory Disturbances: 0-None Visual Disturbances: 2-Mild Sensitivity Headache: 3-Moderate CIWA-Ar Total Score: 19 BHS Progress Note (SOAP) Subjective: Tremors, Sweating, Anxious, Fatigue, H/A. Objective: PATIENT A & O X 3, OBSERVED AMBULATING ON UNIT. NO ACUTE DISTRESS. 06/15/17 13:06 Vital Signs Temperature 97.5 F L 06/15/17 09:25 Pulse Rate 75 06/15/17 09:25 Respiratory Rate 18 06/15/17 09:25 Blood Pressure 134/68 06/15/17 09:25 O2 Sat by Pulse Oximetry (%) Laboratory Tests 06/14/17 06/14/17 06/14/17 12:00 12:00 12:00 WBC 6.9 RBC 4.73 Hgb 13.4 Hct 40.0 MCV 84.6 MCH 28.4 MCHC 33.5 RDW 14.0 Plt Count 229 D MPV 9.8 Sodium 140 Potassium 4.2 Chloride 102 Carbon Dioxide 27 Anion Gap 11 BUN 11 D Creatinine 0.7 D Creat Clearance w eGFR > 60 Random Glucose 97 Calcium 9.3 Total Bilirubin 0.4 AST 12 L ALT 18 Alkaline Phosphatase 56 Total Protein 7.5 Albumin 4.4 Urine Color Urine Appearance Urine pH Ur Specific [place] Urine Protein Urine Glucose (UA) Urine Ketones Urine Blood Urine Nitrite Urine Bilirubin Urine Urobilinogen Ur Leukocyte Esterase RPR Titer Nonreactive 06/14/17 14:00 WBC RBC Hgb Hct MCV MCH MCHC RDW Plt Count MPV Sodium Potassium Chloride Carbon Dioxide Anion Gap BUN Creatinine Creat Clearance w eGFR Random Glucose Calcium Total Bilirubin AST ALT Alkaline Phosphatase Total Protein Albumin Urine Color Ltyellow Urine Appearance Clear Urine pH 5.0 Ur Specific [place] 1.009 Urine Protein Negative Urine Glucose (UA) Negative Urine Ketones Negative Urine Blood Negative Urine Nitrite Negative Urine Bilirubin Negative Urine Urobilinogen Negative Ur Leukocyte Esterase Negative RPR Titer LABS NOTED. Assessment: 06/15/17 13:07 WITHDRAWAL SYMPTOMS. Plan: CONTINUE DETOX.
[2017-06-15] MEDS: IBUPROFEN 400 MG TABLET (FP) PO PRN (19:11)
[2017-06-15] MEDS: THIAMINE HCL 100 MG TABLET (FP) PO SCH (22:43)
[2017-06-15] MEDS: ZOLPIDEM TARTRATE 10 MG TABLET (PARK CARE ONLY) PO PRN (22:43)
[2017-06-16] MEDS: BUPRENORPHINE/NALOXONE 8 MG/2 MG FILM PACKET SL SCH ×2 (05:34→17:23)
[2017-06-16] MEDS: NICOTINE POLACRILEX 4 MG GUM BUC PRN ×7 (05:34→22:58)
[2017-06-16] MEDS: diazePAM 5 MG TABLET PO PRN ×2 (05:34→13:02)
[2017-06-16] MEDS: PRENATAL VITAMINS W/ FOLIC ACID TABLET (FP) PO SCH (09:48)
[2017-06-16] MEDS: diazePAM 5 MG TABLET PO SCH ×2 (09:49→22:57)
[2017-06-16] MEDS: NICOTINE 21 MG/24 HOURS TOPICAL PATCH TD SCH (09:49)
[2017-06-16] MEDS: DOCUSATE SODIUM 100 MG CAPSULE (FP) PO SCH ×2 (11:12→22:57)
--- NOTE | 2017-06-16 11:13 | PN ---
S CIWA - CIWA Score Nausea/Vomitin-No Nausea/No Vomiting Muscle Tremors: 3 Anxiety: 4-Mod. Anxious/Guarded Agitation: 3 Paroxysmal Sweats: 3 Orientation: 0-Oriented Tacttile Disturbances: 2-Mild Itch/Numbness/Burn Auditory Disturbances: 0-None Visual Disturbances: 2-Mild Sensitivity Headache: 0-None Present CIWA-Ar Total Score: 17 BHS Progress Note (SOAP) Subjective: Sweating, Tremors, Anxious, Constipation. Objective: PATIENT A & O X 3, OBSERVED AMBULATING ON UNIT. NO ACUTE DISTRESS. 06/16/17 11:12 Vital Signs Temperature 98.4 F 06/16/17 09:22 Pulse Rate 85 06/16/17 09:22 Respiratory Rate 18 06/16/17 09:22 Blood Pressure 116/71 06/16/17 09:22 O2 Sat by Pulse Oximetry (%) Laboratory Tests 06/14/17 06/14/17 06/14/17 12:00 12:00 12:00 WBC 6.9 RBC 4.73 Hgb 13.4 Hct 40.0 MCV 84.6 MCH 28.4 MCHC 33.5 RDW 14.0 Plt Count 229 D MPV 9.8 Sodium 140 Potassium 4.2 Chloride 102 Carbon Dioxide 27 Anion Gap 11 BUN 11 D Creatinine 0.7 D Creat Clearance w eGFR > 60 Random Glucose 97 Calcium 9.3 Total Bilirubin 0.4 AST 12 L ALT 18 Alkaline Phosphatase 56 Total Protein 7.5 Albumin 4.4 Urine Color Urine Appearance Urine pH Ur Specific [place] Urine Protein Urine Glucose (UA) Urine Ketones Urine Blood Urine Nitrite Urine Bilirubin Urine Urobilinogen Ur Leukocyte Esterase RPR Titer Nonreactive 06/14/17 14:00 WBC RBC Hgb Hct MCV MCH MCHC RDW Plt Count MPV Sodium Potassium Chloride Carbon Dioxide Anion Gap BUN Creatinine Creat Clearance w eGFR Random Glucose Calcium Total Bilirubin AST ALT Alkaline Phosphatase Total Protein Albumin Urine Color Ltyellow Urine Appearance Clear Urine pH 5.0 Ur Specific [place] 1.009 Urine Protein Negative Urine Glucose (UA) Negative Urine Ketones Negative Urine Blood Negative Urine Nitrite Negative Urine Bilirubin Negative Urine Urobilinogen Negative Ur Leukocyte Esterase Negative RPR Titer LABS NOTED. Assessment: 06/16/17 11:12 WITHDRAWAL SYMPTOMS. Plan: CONTINUE DETOX. COLACE BID FOR CONSTIPATION. INCREASE DAILY PO FLUID INTAKE.
--- NOTE | 2017-06-16 15:17 | PN ---
[facility] Progress Note Note: Patient that he is tolerating current Detox symptoms well. Patient's counselor reports that bed will be available at [facility] ( [facility]) tomorrow. At patient's request, detox medication schedule modified so that patient may be discharged tomorrow, 06/17/2017, to go on to [facility] for Rehab. Krystyna Batista NP
[2017-06-16] MEDS: IBUPROFEN 400 MG TABLET (FP) PO PRN (20:18)
[2017-06-16] MEDS: THIAMINE HCL 100 MG TABLET (FP) PO SCH (22:57)
[2017-06-16] MEDS: ZOLPIDEM TARTRATE 10 MG TABLET (PARK CARE ONLY) PO PRN (22:59)
[2017-06-17] MEDS: BUPRENORPHINE/NALOXONE 8 MG/2 MG FILM PACKET SL SCH (05:47)
[2017-06-17] MEDS: NICOTINE POLACRILEX 4 MG GUM BUC PRN ×2 (05:48→09:47)
[2017-06-17] MEDS: IBUPROFEN 400 MG TABLET (FP) PO PRN (05:52)
[2017-06-17 09:26] VITALS: BP 103/61; PULSE 70; TEMP 95.7
[2017-06-17] MEDS: diazePAM 5 MG TABLET PO SCH (10:47)
[2017-06-17] MEDS: PRENATAL VITAMINS W/ FOLIC ACID TABLET (FP) PO SCH (10:47)
[2017-06-17] MEDS: DOCUSATE SODIUM 100 MG CAPSULE (FP) PO SCH (10:47)
[2017-06-17] MEDS: NICOTINE 21 MG/24 HOURS TOPICAL PATCH TD SCH (10:48)
--- NOTE | 2017-06-17 18:49 | PN ---
S Progress Note (SOAP) Subjective: Patient denies any current Detox symptoms and reports taht he is feeling well overall. Objective: PATIENT A & O X 3, OBSERVED AMBULATING ON UNIT. NO ACUTE DISTRESS. 06/17/17 18:47 Vital Signs Temperature 95.7 F L 06/17/17 09:25 Pulse Rate 70 06/17/17 09:25 Respiratory Rate 18 06/17/17 09:25 Blood Pressure 103/61 06/17/17 09:25 O2 Sat by Pulse Oximetry (%) Laboratory Tests 06/14/17 06/14/17 06/14/17 12:00 12:00 12:00 WBC 6.9 RBC 4.73 Hgb 13.4 Hct 40.0 MCV 84.6 MCH 28.4 MCHC 33.5 RDW 14.0 Plt Count 229 D MPV 9.8 Sodium 140 Potassium 4.2 Chloride 102 Carbon Dioxide 27 Anion Gap 11 BUN 11 D Creatinine 0.7 D Creat Clearance w eGFR > 60 Random Glucose 97 Calcium 9.3 Total Bilirubin 0.4 AST 12 L ALT 18 Alkaline Phosphatase 56 Total Protein 7.5 Albumin 4.4 Urine Color Urine Appearance Urine pH Ur Specific [place] Urine Protein Urine Glucose (UA) Urine Ketones Urine Blood Urine Nitrite Urine Bilirubin Urine Urobilinogen Ur Leukocyte Esterase RPR Titer Nonreactive 06/14/17 14:00 WBC RBC Hgb Hct MCV MCH MCHC RDW Plt Count MPV Sodium Potassium Chloride Carbon Dioxide Anion Gap BUN Creatinine Creat Clearance w eGFR Random Glucose Calcium Total Bilirubin AST ALT Alkaline Phosphatase Total Protein Albumin Urine Color Ltyellow Urine Appearance Clear Urine pH 5.0 Ur Specific [place] 1.009 Urine Protein Negative Urine Glucose (UA) Negative Urine Ketones Negative Urine Blood Negative Urine Nitrite Negative Urine Bilirubin Negative Urine Urobilinogen Negative Ur Leukocyte Esterase Negative RPR Titer LABS NOTED. Assessment: 06/17/17 18:47 COMPLETION OF DETOX REGIMEN. Plan: PATIENT SCHEDULED FOR DISCHARGE FROM DETOX TODAY. PATIENT SCHEDULED TO GO TO [facility] ([place], [place] FOR AFTERCARE.
--- NOTE | 2017-06-17 18:54 | DS ---
[facility] Detox Discharge Summary Admission Date: 06/14/17 Discharge Date: 06/17/17 - History Present History: Alcohol Dependence, Opioid Dependence, Sedative Dependence Additional Comments: PATIENT GOING TO [facility] ([facility]) FOR AFTERCARE. PATIENT WAS DISCHARGED FROM DETOX UNIT IN STABLE MEDICAL CONDITION. Pertinent Past History: Anxiety, Insomnia, History of Suboxone Maintenance Therapy, Nicotine Dependence. - Physical Exam Results Vital Signs: Vital Signs Temperature 95.7 F L 06/17/17 09:25 Pulse Rate 70 06/17/17 09:25 Respiratory Rate 18 06/17/17 09:25 Blood Pressure 103/61 06/17/17 09:25 O2 Sat by Pulse Oximetry (%) Pertinent Admission Physical Exam Findings: WITHDRAWAL SYMPTOMS. Laboratory Tests 06/14/17 06/14/17 06/14/17 12:00 12:00 12:00 WBC 6.9 RBC 4.73 Hgb 13.4 Hct 40.0 MCV 84.6 MCH 28.4 MCHC 33.5 RDW 14.0 Plt Count 229 D MPV 9.8 Sodium 140 Potassium 4.2 Chloride 102 Carbon Dioxide 27 Anion Gap 11 BUN 11 D Creatinine 0.7 D Creat Clearance w eGFR > 60 Random Glucose 97 Calcium 9.3 Total Bilirubin 0.4 AST 12 L ALT 18 Alkaline Phosphatase 56 Total Protein 7.5 Albumin 4.4 Urine Color Urine Appearance Urine pH Ur Specific [place] Urine Protein Urine Glucose (UA) Urine Ketones Urine Blood Urine Nitrite Urine Bilirubin Urine Urobilinogen Ur Leukocyte Esterase RPR Titer Nonreactive 06/14/17 14:00 WBC RBC Hgb Hct MCV MCH MCHC RDW Plt Count MPV Sodium Potassium Chloride Carbon Dioxide Anion Gap BUN Creatinine Creat Clearance w eGFR Random Glucose Calcium Total Bilirubin AST ALT Alkaline Phosphatase Total Protein Albumin Urine Color Ltyellow Urine Appearance Clear Urine pH 5.0 Ur Specific [place] 1.009 Urine Protein Negative Urine Glucose (UA) Negative Urine Ketones Negative Urine Blood Negative Urine Nitrite Negative Urine Bilirubin Negative Urine Urobilinogen Negative Ur Leukocyte Esterase Negative RPR Titer LABS NOTED. - Treatment Hospital Course: Detox Protocol Followed, Detoxed Safely, Responded well, Discharged Condition Good, Rehab Referral Accepted Patient has Accepted a Rehab Referral to: [facility] ([facility]). - Medication Discharge Medications: Ambulatory Orders Gabapentin [Neurontin -] 200 mg PO Q8H 06/14/17 - Diagnosis (1) Alcohol dependence with uncomplicated withdrawal Status: Acute (2) Nicotine dependence Status: Acute (3) Encounter for monitoring Suboxone maintenance therapy Status: Chronic (4) Sedative, hypnotic or anxiolytic dependence with withdrawal, uncomplicated Status: Acute (5) Drug-induced mood disorder Status: Acute (6) Insomnia Status: Acute Qualifiers: Insomnia type: unspecified Qualified Code(s): G47.00 - Insomnia, unspecified (7) Opioid dependence on agonist therapy Status: Acute - AMA Did Patient Leave Against Medical Advice: No
[2017-06-18] MEDS ORDERED: diazePAM 5 MG TABLET PO SCH (10:00)
== END 2017-06-17 11:05 | disposition home or self-care (01) | DRG 773 ==
LOC: YASAS 10:05 → Y3N 12:23
PROVIDERS: ADMIT Internal Medicine; ATTEND Internal Medicine
PROC: HZ2ZZZZ Detoxification Services for Substance Abuse Treatment (ICD-10-PCS; principal; 2017-06-14)
DX: F11.20 Opioid dependence, uncomplicated (principal); F13.230 Sedative, hypnotic or anxiolytic dependence with withdrawal, uncomplicated; F10.230 Alcohol dependence with withdrawal, uncomplicated; F17.210 Nicotine dependence, cigarettes, uncomplicated; F41.8 Other specified anxiety disorders; F19.24 Other psychoactive substance dependence with psychoactive substance-induced mood disorder; G47.00 Insomnia, unspecified; Z51.81 Encounter for therapeutic drug level monitoring
CPT/HCPCS: 36415; 80053; 81003; 85027; 86593; 93005; 93010

== ENCOUNTER 2018-12-29 10:03 | Inpatient (IN) | payer OTHER ==
[2018-12-29 10:23] VITALS: BMI 25.7
--- NOTE | 2018-12-29 12:13 | HP ---
CIWA Score Nausea/Vomitin Muscle Tremors: 3 Anxiety: 2 Agitation: 2 Paroxysmal Sweats: 1-Minimal Palms Moist Orientation: 0-Oriented Tacttile Disturbances: 1-Very Mild Itch/Numbness Auditory Disturbances: 0-None Visual Disturbances: 1-Very Mild Sensitivity Headache: 1-Very Mild CIWA-Ar Total Score: 13 - Admission Criteria OASAS Guidelines: Admission for Medically Managed Detox: Requires at least one of the followin. CIWA greater than 12 2. Seizures within the past 24 hours 3. Delirium tremens within the past 24 hours 4. Hallucinations within the past 24 hours 5. Acute intervention needed for co occurring medical disorder 6. Acute intervention needed for co occurring psychiatric disorder 7. Severe withdrawal that cannot be handled at a lower level of care (continued vomiting, continued diarrhea, abnormal vital signs) requiring intravenous medication and/or fluids 8. Patient presents the following: CIWA greater than 12 Admission Criteria Met: Admission criteria met Admitting History and Physical - Smoking History Smoking history: Current every day smoker Have you smoked in the past 12 months: Yes Aproximately how many cigarettes per day: 40 - Alcohol/Substance Use Hx Alcohol Use: Yes (VODKA/COGNAC/BEER) Admission [facility] Chief Complaint: Job Bradley is a 33 year old male presenting for alcohol and cocaine abuse. Allergies/Adverse Reactions: Allergies Allergy/AdvReac Type Severity Reaction Status Date / Time No Known Allergies Allergy Verified 12/29/18 10:17 History of Present Illness: Job Bradley is a 33 year old male presenting for alcohol and cocaine abuse. Alcohol: 1 pint with 9-10 beers. Daily drinker. Last drink was earlier in the morning. States his first drink was at age 17. Has been drinking heavily for 5 months. Longest period of sobriety was 1 year during which he was attending meetings and going to groups. Unsure of whether of not he has had seizures in the past. Endorses blackouts and falls. Denies head hits. Withdrawal symptoms: tremors, nausea, vomiting, anxiety, chills Cocaine: 60$ or more per day. Smoking and inhalation. Had previous IVDU, not in the last several years. Last use was last night Has been to detox and rehab in the past. After detox plans are to go to rehab. Wanted to go to [place] rehab after completing of detox. Medical History: denies Psychiatric History: anxiety, depression Surgical History: deviated septum surgery Smokinppd Social: apartment, lives with grandfather. Currently unemployed. Stated that will have a job through friend upon completion of rehab. Utox: ARCHIE, BUP TORI: 0.027 Will be admitted for alcohol detox due to expected withdrawal symptoms. Patient will speak to counselor regarding rehab options after detox. Exam Limitations: No Limitations - Ebola screening Have you traveled outside of the country in the last 21 days: No Have you had contact with anyone from an Ebola affected area: No Do you have a fever: No - Review of Systems Constitutional: Chills, Loss of Appetite EENT: reports: Tearing, Other (rhinnorhea) Respiratory: reports: No Symptoms reported Cardiac: reports: Palpitations GI: reports: Diarrhea, Nausea : reports: No Symptoms Reported Musculoskeletal: reports: No Symptoms Reported Integumentary: reports: No Symptoms Reported Neuro: reports: Headache, Tingling Endocrine: reports: No Symptoms Reported Hematology: reports: No Symptoms Reported Psychiatric: reports: Anxious Patient History - Patient Medical History Hx Anemia: No Hx Asthma: No Hx Chronic Obstructive Pulmonary Disease (COPD): No Hx Cancer: No Hx Cardiac Disorders: No Hx Congestive Heart Failure: No Hx Hypertension: No Hx Hypercholesterolemia: No Hx Pacemaker: No HX Cerebrovascular Accident: No Hx Seizures: No Hx Dementia: No Hx Diabetes: No Hx Gastrointestinal Disorders: No Hx Liver Disease: No Hx Genitourinary Disorders: No Hx Sexually Transmitted Disorders: No Hx Renal Disease (ESRD): No Hx Thyroid Disease: No Hx Human Immunodeficiency Virus (HIV): No (2016 NEGATIVE HX) Hx Hepatitis C: No (2017 NEGATIVE HX) Hx Depression: Yes (AND ANXIETY) Hx Suicide Attempt: No (DENIES S/I) Hx Bipolar Disorder: No Hx Schizophrenia: No - Patient Surgical History Past Surgical History: Yes Hx Neurologic Surgery: No Hx Cataract Extraction: No Hx Cardiac Surgery: No Hx Lung Surgery: No Hx Breast Surgery: No Hx Breast Biopsy: No Hx Abdominal Surgery: No Hx Appendectomy: No Hx Cholecystectomy: No Hx Genitourinary Surgery: No Hx Section: No Hx Orthopedic Surgery: No Other Surgical History: nasal surgery in 09/2013 FOR DEVIATED SEPTUM Anesthesia Reaction: No - PPD History Previous Implant?: Yes Documented Results: Negative w/o proof Date: 02/09/17 Results: 3 mm PPD to be Administered?: Yes - Smoking Cessation Smoking history: Current every day smoker Have you smoked in the past 12 months: Yes Aproximately how many cigarettes per day: 40 Cigars Per Day: 0 Hx Chewing Tobacco Use: No Initiated information on smoking cessation: Yes 'Breaking Loose' booklet given: 12/29/18 - Substance & Tx. History Hx Alcohol Use: Yes Hx Substance Use: Yes Substance Use Type: Alcohol, Cocaine, Heroin Hx Substance Use Treatment: Yes (currently on suboxone) - Substances abused Alcohol Substance route: Oral Frequency: Daily Amount used: 1 pint vodka & 8-12 12oz beers Age of first use: 17 Date of last use: 12/29/18 Cocaine Substance route: Smoking Frequency: Daily Amount used: $60 Age of first use: 20 Date of last use: 12/28/18 Admission Physical Exam BHS - Vital Signs Vital Signs: Vital Signs - 24 hr 12/29/18 12/29/18 10:16 10:54 Temperature 98.2 F 98.2 F Pulse Rate 82 82 Respiratory 18 18 Rate Blood Pressure 133/67 133/67 - Physical HEENTM: Yes: EOMI, Normal ENT Inspection, Normocephalic, Normal Voice, CHERRIE, Pharynx Normal Respiratory: Yes: Chest Non-Tender, Lungs Clear, Normal Breath Sounds, No Respiratory Distress, No Accessory Muscle Use Neck: Yes: No masses,lesions,Nodules, Trachea in good position Breast: Yes: Breast Exam Deferred Cardiology: Yes: Regular Rhythm, Regular Rate, S1, S2 Abdominal: Yes: Normal Bowel Sounds, Non Tender, Flat, Soft Genitourinary: Yes: Within Normal Limits Back: Yes: Normal Inspection Musculoskeletal: Yes: full range of Motion Extremities: Yes: Normal Capillary Refill, Normal Inspection, Normal Range of Motion, Non-Tender Neurological: Yes: mammography technologist II-XII NML intact, Fully Oriented, Alert, Motor Strength 5/5 Integumentary: Yes: Normal Color, Dry, Warm, Other (old scars noted from previous injection sites) - Diagnostic (1) Alcohol dependence with uncomplicated withdrawal Current Visit: No Status: Acute (2) Cocaine dependence, uncomplicated Current Visit: No Status: Acute (3) Depression Current Visit: No Status: Acute Qualifiers: Depression Type: unspecified Qualified Code(s): F32.9 - Major depressive disorder, single episode, unspecified (4) Drug-induced mood disorder Current Visit: No Status: Acute (5) Nicotine dependence Current Visit: No Status: Acute (6) Opioid dependence on agonist therapy Current Visit: No Status: Acute Cleared for Admission S - Detox or Rehab [facility] Level of Care: Medically Managed Detox Regimen/Protocol: Librium Breathalyzer - Breathalyzer Breathalyzer: 0.027 Urine Drug Screen - Test Device Lot number: [id number] Expiration date: 08/18/20 - Control Is test valid?: Yes - Results Drug screen NEGATIVE: No Urine drug screen results: ARCHIE-Cocaine, BUP-Suboxone Inpatient Rehab Admission - Rehab Decision to Admit Inpatient rehab admission?: No
[2018-12-29] MEDS ORDERED: MAG HYDROX/AL HYDROX/SIMETH 30 ML UNIT-DOSE CUP PO PRN (12:29)
[2018-12-29] MEDS ORDERED: ACETAMINOPHEN 325 MG TABLET (FP) PO PRN (12:29)
[2018-12-29] MEDS ORDERED: MAGNESIUM HYDROX 2400MG/30ML ORAL SUSPENSION 30 ML CUP PO PRN (12:29)
[2018-12-29] MEDS ORDERED: BISMUTH SUBSALICYLATE 524 MG/30 ML UD PO PRN (12:29)
[2018-12-29] MEDS ORDERED: MAGNESIUM CITRATE 300 ML BOTTLE PO PRN (12:29)
[2018-12-29] MEDS ORDERED: MENTHOL/PHENOL 1 EACH UD MM PRN (12:29)
--- NOTE | 2018-12-29 13:44 | PN ---
Teaching Attending Note Name of Resident: Jean Carlos Martell ATTENDING PHYSICIAN STATEMENT I saw and evaluated the patient. I reviewed the resident's note and discussed the case with the resident. I agree with the resident's findings and plan as documented. SUBJECTIVE: Agree with subjective findings of resident OBJECTIVE: Agree with objective findings of resident ASSESSMENT AND PLAN: Patient appropriate for admission to detox.
[2018-12-29] MEDS: GABAPENTIN 300 MG CAPSULE (FP) PO SCH ×3 (14:01→22:29)
[2018-12-29] MEDS: chlordiazePOXIDE HCL 25 MG CAPSULE PO PRN (14:37)
[2018-12-29] MEDS: NICOTINE POLACRILEX 4 MG GUM BUC PRN ×3 (16:46→21:44)
[2018-12-29] MEDS: chlordiazePOXIDE HCL 25 MG CAPSULE PO SCH ×2 (16:46→22:29)
[2018-12-29 17:04] LABS: HEMATOCRIT 39.2 % (35.4-49); HEMOGLOBIN 12.7 GM/dL (11.7-16.9); MCH 27.3 pg (25.7-33.7); MCHC 32.5 g/dl (32.0-35.9); MEAN PLT VOLUME 9.3 fl (7.5-11.1); PLATELET COUNT 246 K/MM3 (134-434); RBC 4.67 M/mm3 (4.00-5.60); RDW 13.5 % (11.9-15.9)
[2018-12-29 17:14] LABS: ALBUMIN 4.4 g/dl (3.4-5.0); BILIRUBIN,TOTAL 0.2 mg/dL (0.2-1); BLOOD UREA NITROGEN 12.7 mg/dL (7-18); CREATININE 0.8 mg/dL (0.55-1.3); POTASSIUM 4.1 mmol/L (3.5-5.1); TOT PROT 7.4 g/dl (6.4-8.2)
[2018-12-29] MEDS: BUPRENORPHINE/NALOXONE 8 MG/2 MG FILM PACKET SL SCH (19:23)
[2018-12-29] MEDS ORDERED: BUPRENORPHINE/NALOXONE 8 MG/2 MG FILM PACKET SL SCH (22:00)
[2018-12-29] MEDS: THIAMINE HCL 100 MG TABLET (FP) PO SCH (22:29)
[2018-12-29] MEDS: MELATONIN 5 MG TABLETS PO PRN (22:29)
[2018-12-30] MEDS: NICOTINE POLACRILEX 4 MG GUM BUC PRN ×7 (07:07→22:19)
[2018-12-30] MEDS: BUPRENORPHINE/NALOXONE 8 MG/2 MG FILM PACKET SL SCH ×2 (07:07→17:58)
[2018-12-30] MEDS: chlordiazePOXIDE HCL 25 MG CAPSULE PO SCH ×4 (07:07→22:18)
[2018-12-30] MEDS: GABAPENTIN 300 MG CAPSULE (FP) PO SCH ×4 (09:59→22:18)
[2018-12-30] MEDS: PRENATAL VITAMINS W/ FOLIC ACID TABLET (FP) PO SCH (09:59)
[2018-12-30] MEDS: NICOTINE 14 MG/24 HOURS TOPICAL PATCH TD SCH (09:59)
[2018-12-30] MEDS: chlordiazePOXIDE HCL 25 MG CAPSULE PO PRN ×2 (11:50→15:53)
[2018-12-30] MEDS: IBUPROFEN 400 MG TABLET (FP) PO PRN (11:50)
[2018-12-30] MEDS ORDERED: FLU VACCINE QUAD 60 MCG/0.5 ML (MDV 19-20) IM ONE (12:00)
--- NOTE | 2018-12-30 13:51 | PN ---
[facility] CIWA - CIWA Score Nausea/Vomitin-No Nausea/No Vomiting Muscle Tremors: 3 Anxiety: 2 Agitation: 3 Paroxysmal Sweats: 3 Orientation: 0-Oriented Tacttile Disturbances: 0-None Auditory Disturbances: 0-None Visual Disturbances: 0-None Headache: 0-None Present CIWA-Ar Total Score: 11 S Progress Note (SOAP) Subjective: restless sweats agitation interrupted sleep Objective: 12/30/18 13:50 Vital Signs Temperature 97.9 F 12/30/18 09:33 Pulse Rate 74 12/30/18 09:33 Respiratory Rate 16 12/30/18 09:33 Blood Pressure 124/66 12/30/18 09:33 O2 Sat by Pulse Oximetry (%) Laboratory Tests 12/29/18 12/29/18 12/29/18 13:00 13:00 13:00 WBC 7.0 RBC 4.67 Hgb 12.7 Hct 39.2 MCV 84.0 MCH 27.3 MCHC 32.5 RDW 13.5 Plt Count 246 MPV 9.3 Sodium 140 Potassium 4.1 Chloride 108 H Carbon Dioxide 25 Anion Gap 7 L BUN 12.7 Creatinine 0.8 Est GFR (CKD-EPI)AfAm 136.99 Est GFR (CKD-EPI)NonAf 118.20 Random Glucose 80 Calcium 9.0 Total Bilirubin 0.2 AST 17 ALT 26 Alkaline Phosphatase 57 Total Protein 7.4 Albumin 4.4 RPR Titer Nonreactive HIV 1&2 Antibody Screen HIV P24 Antigen 12/30/18 05:50 WBC RBC Hgb Hct MCV MCH MCHC RDW Plt Count MPV Sodium Potassium Chloride Carbon Dioxide Anion Gap BUN Creatinine Est GFR (CKD-EPI)AfAm Est GFR (CKD-EPI)NonAf Random Glucose Calcium Total Bilirubin AST ALT Alkaline Phosphatase Total Protein Albumin RPR Titer HIV 1&2 Antibody Screen Negative HIV P24 Antigen Negative labs noted aaox3 ambulating no acute distress Assessment: 12/30/18 13:50 withdrawal sx Plan: continue detox increase fluids
--- NOTE | 2018-12-30 15:47 | CONSULT ---
[facility] Psychiatric Consult - Data Date of interview: 12/30/18 Admission source: [facility] Identifying data: This is one of multiple admissions to [facility] for this 33 y/ o [place] male self-referred for detoxification (PEPPER issues : opioid, cocaine, alcohol). Interviewed on . Patient is single without children, domiciled (lives with grand father), unemployed and supported by relatives. Substance Abuse History: Discussed with the patient. Gave history of substance use concordant with current [facility] report as follows : Smoking history: Current every day smoker. Have you smoked in the past 12 months: Yes. Aproximately how many cigarettes per day: 40. Cigars Per Day: 0. Hx Chewing Tobacco Use: No. Initiated information on smoking cessation: Yes. 'Breaking Loose' booklet given: 12/29/18. - Substance & Tx. History. Hx Alcohol Use: Yes. Hx Substance Use: Yes. Substance Use Type: Alcohol, Cocaine, Heroin. Hx Substance Use Treatment: Yes (currently on suboxone). - Substances abused. Alcohol. Substance route: Oral. Frequency: Daily. Amount used: 1 pint vodka & 8-12 12oz beers. Age of first use: 17. Date of last use: 12/29/18. Cocaine. Substance route: Smoking. Frequency: Daily. Amount used: $60. Age of first use: 20. Date of last use: 12/28/18 Medical History: Patient endorses good general health. History of surgery for deviated septum (2013). Psychiatric History: Patient, in this interview, admits to a history of two psychiatric hospitalizations (2011 + 2012) at an institution in [place] and [facility] ([facility]). He endorses the diagnoses of MDD , ADHD and Anxiety Disorder. Mr Bradley indicates past treatment with various formulations (wellbutrin, gabapentin, ritalin, trazodone, seroquel). He aknowledges a chronic history of non-adherence to medications + psychiatric OPD care. Patient is currently on suboxone maintenance at [facility]. He reports that, during his admission to the [facility] in [place] (06/2018), he was medicated with depakote + wellbutrin. No reported history of suicide attempts. Physical/Sexual Abuse/Trauma History: Patient denies history of abuse. Additional Comment: Urine drug screen results: ARCHIE-Cocaine, BUP-Suboxone. Noted. Mental Status Exam - Mental Status Exam Alert and Oriented to: Time, Place, Person Cognitive Function: Good Patient Appearance: Well Groomed Mood: Nervous, Withdrawn, Anxious Affect: Mood Congruent, Constricted Patient Behavior: Fatigued, Cooperative Speech Pattern: Clear, Appropriate Voice Loudness: Normal Thought Process: Intact, Goal Oriented Thought Disorder: Not Present Hallucinations: Denies Suicidal Ideation: Denies Homicidal Ideation: Denies Insight/Judgement: Poor Sleep: Poorly, Difficulty falling asleep Appetite: Good Muscle strength/Tone: Normal Gait/Station: Normal Psychiatric Findings - Problem List ([place]cker 1, 2,3) (1) Alcohol dependence with uncomplicated withdrawal Current Visit: Yes Status: Acute (2) Opioid dependence on agonist therapy Current Visit: Yes Status: Chronic (3) Cocaine dependence, uncomplicated Current Visit: Yes Status: Chronic (4) Nicotine dependence Current Visit: Yes Status: Chronic (5) Drug-induced mood disorder Current Visit: Yes Status: Chronic (6) History of depression Current Visit: Yes Status: Chronic (7) Anxiety disorder Current Visit: Yes Status: Chronic (8) History of attention deficit hyperactivity disorder (ADHD) Current Visit: Yes Status: Chronic Comment: Self-report. (9) Insomnia Current Visit: Yes Status: Chronic Qualifiers: Insomnia type: unspecified Qualified Code(s): G47.00 - Insomnia, unspecified (10) Non-compliance Current Visit: Yes Status: Chronic - Initial Treatment Plan Initial Treatment Plan: Records revisited. Case discussed with counselor Refugio (facilitation of transition to rehabilitation). Psychoeducation. Sleep hygiene. AA/NA meetings. Patient is requesting restart of wellbutrin and trazodone. Side effects/benefits of both drugs are explained to the patient. He is made aware of risk of priapism (trazodone) and seizures (wellbutrin). Denies history of adverse effects on these medications. " I did well on wellbutrin and did not have any problem with trazodone." Mr Bradley provided verbal consent to . Ordered : wellbutrin 75 mg po daily + trazodone 50 mg po hs. Observation.
[2018-12-30] MEDS: THIAMINE HCL 100 MG TABLET (FP) PO SCH (22:18)
[2018-12-30] MEDS: traZODone HCL 50 MG TABLET (FP) PO SCH (22:18)
[2018-12-31] MEDS: BUPRENORPHINE/NALOXONE 8 MG/2 MG FILM PACKET SL SCH ×2 (06:59→17:58)
[2018-12-31] MEDS: chlordiazePOXIDE HCL 25 MG CAPSULE PO SCH ×4 (06:59→22:13)
[2018-12-31] MEDS: IBUPROFEN 400 MG TABLET (FP) PO PRN (08:11)
[2018-12-31] MEDS: NICOTINE POLACRILEX 4 MG GUM BUC PRN ×5 (08:55→22:13)
[2018-12-31] MEDS: buPROPion HCL 75 MG TABLET PO SCH (10:57)
[2018-12-31] MEDS: GABAPENTIN 300 MG CAPSULE (FP) PO SCH ×4 (10:58→22:13)
[2018-12-31] MEDS: NICOTINE 14 MG/24 HOURS TOPICAL PATCH TD SCH (11:07)
[2018-12-31] MEDS: PRENATAL VITAMINS W/ FOLIC ACID TABLET (FP) PO SCH (11:08)
[2018-12-31] MEDS: NICOTINE 21 MG/24 HOURS TOPICAL PATCH TD SCH (11:34)
[2018-12-31] MEDS: chlordiazePOXIDE HCL 25 MG CAPSULE PO PRN (13:54)
--- NOTE | 2018-12-31 17:55 | PN ---
S CIWA - CIWA Score Nausea/Vomitin-Mild Nausea/No Vomiting Muscle Tremors: 4-Moderate,w/Arms Extend Anxiety: 2 Agitation: 2 Paroxysmal Sweats: 3 Orientation: 0-Oriented Tacttile Disturbances: 0-None Auditory Disturbances: 0-None Visual Disturbances: 0-None Headache: 0-None Present CIWA-Ar Total Score: 12 BHS Progress Note (SOAP) Subjective: Interrupted sleep, anxious, agitated. Patient stated he smokes juul plus 1.5 pack cigarettes daily and has crave for smoking and would like higher dose of nicotine patch. Objective: 12/31/18 17:53 Last Vital Signs Temp Pulse Resp BP Pulse Ox 97.2 F L 71 16 106/59 L 12/31/18 17:50 12/31/18 17:50 12/31/18 17:50 12/31/18 17:50 Laboratory Tests 12/29/18 12/29/18 12/29/18 13:00 13:00 13:00 WBC 7.0 RBC 4.67 Hgb 12.7 Hct 39.2 MCV 84.0 MCH 27.3 MCHC 32.5 RDW 13.5 Plt Count 246 MPV 9.3 Sodium 140 Potassium 4.1 Chloride 108 H Carbon Dioxide 25 Anion Gap 7 L BUN 12.7 Creatinine 0.8 Est GFR (CKD-EPI)AfAm 136.99 Est GFR (CKD-EPI)NonAf 118.20 Random Glucose 80 Calcium 9.0 Total Bilirubin 0.2 AST 17 ALT 26 Alkaline Phosphatase 57 Total Protein 7.4 Albumin 4.4 RPR Titer Nonreactive HIV 1&2 Antibody Screen HIV P24 Antigen 12/30/18 05:50 WBC RBC Hgb Hct MCV MCH MCHC RDW Plt Count MPV Sodium Potassium Chloride Carbon Dioxide Anion Gap BUN Creatinine Est GFR (CKD-EPI)AfAm Est GFR (CKD-EPI)NonAf Random Glucose Calcium Total Bilirubin AST ALT Alkaline Phosphatase Total Protein Albumin RPR Titer HIV 1&2 Antibody Screen Negative HIV P24 Antigen Negative Labs reviewed Assessment: 12/31/18 17:53 Withdrawal sxs Plan: Continue detox Encouraged PO water intake Nicotine dependence: nicoderm patch 21mg daily (14mg patch discontinued), continue nicorette gum prn)
[2018-12-31] MEDS: traZODone HCL 50 MG TABLET (FP) PO SCH (22:13)
[2018-12-31] MEDS: THIAMINE HCL 100 MG TABLET (FP) PO SCH (22:13)
[2019-01-01] MEDS: NICOTINE POLACRILEX 4 MG GUM BUC PRN ×8 (01:53→21:39)
[2019-01-01] MEDS: hydrOXYzine PAMOATE 25 MG CAPSULE (FP) PO PRN ×3 (01:57→22:23)
[2019-01-01] MEDS: BUPRENORPHINE/NALOXONE 8 MG/2 MG FILM PACKET SL SCH ×2 (06:58→17:07)
[2019-01-01] MEDS: chlordiazePOXIDE HCL 10 MG CAPSULE PO SCH ×4 (06:58→22:20)
[2019-01-01] MEDS: PRENATAL VITAMINS W/ FOLIC ACID TABLET (FP) PO SCH (10:40)
[2019-01-01] MEDS: buPROPion HCL 75 MG TABLET PO SCH (10:40)
[2019-01-01] MEDS: NICOTINE 21 MG/24 HOURS TOPICAL PATCH TD SCH (10:40)
[2019-01-01] MEDS: GABAPENTIN 300 MG CAPSULE (FP) PO SCH ×4 (10:40→22:19)
[2019-01-01] MEDS: chlordiazePOXIDE HCL 10 MG CAPSULE PO PRN ×2 (13:55→19:15)
--- NOTE | 2019-01-01 14:07 | PN ---
S CIWA - CIWA Score Nausea/Vomitin-No Nausea/No Vomiting Muscle Tremors: 3 Anxiety: 1-Mildly Anxious Agitation: 2 Paroxysmal Sweats: 2 Orientation: 0-Oriented Tacttile Disturbances: 0-None Auditory Disturbances: 0-None Visual Disturbances: 0-None Headache: 0-None Present CIWA-Ar Total Score: 8 BHS Progress Note (SOAP) Subjective: anxiety sweats chills restless Objective: 01/01/19 14:06 Vital Signs Temperature 98.4 F 01/01/19 13:12 Pulse Rate 85 01/01/19 13:12 Respiratory Rate 18 01/01/19 13:12 Blood Pressure 112/71 01/01/19 13:12 O2 Sat by Pulse Oximetry (%) aaox3 ambulating no acute distress Assessment: 01/01/19 14:06 withdrawal sx Plan: continue detox increase fluids
[2019-01-01] MEDS: ACETAMINOPHEN 325 MG TABLET (FP) PO PRN ×2 (14:34→22:23)
[2019-01-01] MEDS: IBUPROFEN 400 MG TABLET (FP) PO PRN (18:26)
[2019-01-01] MEDS: traZODone HCL 50 MG TABLET (FP) PO SCH (22:19)
[2019-01-01] MEDS: THIAMINE HCL 100 MG TABLET (FP) PO SCH (22:19)
[2019-01-02] MEDS: IBUPROFEN 400 MG TABLET (FP) PO PRN ×2 (01:26→06:30)
[2019-01-02] MEDS: NICOTINE POLACRILEX 4 MG GUM BUC PRN ×8 (01:28→21:12)
[2019-01-02] MEDS: BUPRENORPHINE/NALOXONE 8 MG/2 MG FILM PACKET SL SCH ×2 (05:58→17:11)
[2019-01-02] MEDS: chlordiazePOXIDE HCL 10 MG CAPSULE PO SCH ×2 (05:58→17:11)
[2019-01-02] MEDS: GABAPENTIN 300 MG CAPSULE (FP) PO SCH ×4 (10:53→21:11)
[2019-01-02] MEDS: PRENATAL VITAMINS W/ FOLIC ACID TABLET (FP) PO SCH (10:53)
[2019-01-02] MEDS: buPROPion HCL 75 MG TABLET PO SCH (10:53)
[2019-01-02] MEDS: NICOTINE 21 MG/24 HOURS TOPICAL PATCH TD SCH (10:53)
[2019-01-02] MEDS: hydrOXYzine PAMOATE 25 MG CAPSULE (FP) PO PRN ×2 (10:56→21:16)
[2019-01-02] MEDS: ACETAMINOPHEN 325 MG TABLET (FP) PO PRN ×2 (12:08→20:22)
--- NOTE | 2019-01-02 12:09 | PN ---
S CIWA - CIWA Score Nausea/Vomitin-No Nausea/No Vomiting Muscle Tremors: 1-None Visible, but [place] Anxiety: 1-Mildly Anxious Agitation: 1-Slight > Activity Paroxysmal Sweats: No Perspiration Orientation: 0-Oriented Tacttile Disturbances: 0-None Auditory Disturbances: 0-None Visual Disturbances: 0-None Headache: 0-None Present CIWA-Ar Total Score: 3 BHS Progress Note (SOAP) Subjective: anxiety restless feeling better. I need a discharge for 7am Objective: 01/02/19 12:09 Vital Signs Temperature 96.6 F L 01/02/19 09:34 Pulse Rate 73 01/02/19 09:34 Respiratory Rate 18 01/02/19 09:34 Blood Pressure 105/59 L 01/02/19 09:34 O2 Sat by Pulse Oximetry (%) aaox3 ambulating no acute distress Assessment: 01/02/19 12:09 mild withdrawal sx Plan: continue detox d/c in am
[2019-01-02 20:57] VITALS: PULSE 77
[2019-01-02] MEDS: traZODone HCL 50 MG TABLET (FP) PO SCH (21:11)
[2019-01-02] MEDS: MELATONIN 5 MG TABLETS PO PRN (21:12)
[2019-01-02] MEDS: THIAMINE HCL 100 MG TABLET (FP) PO SCH (21:12)
[2019-01-03] MEDS: NICOTINE POLACRILEX 4 MG GUM BUC PRN ×2 (00:31→06:19)
[2019-01-03] MEDS: IBUPROFEN 400 MG TABLET (FP) PO PRN (00:35)
[2019-01-03] MEDS ORDERED: chlordiazePOXIDE HCL 10 MG CAPSULE PO ONE (05:00)
[2019-01-03] MEDS: BUPRENORPHINE/NALOXONE 8 MG/2 MG FILM PACKET SL SCH (06:16)
[2019-01-03 07:39] VITALS: BP 120/65; TEMP 98.4
--- NOTE | 2019-01-03 09:22 | DS ---
[facility] Detox Discharge Summary Admission Date: 12/29/18 Discharge Date: 01/03/19 - History Present History: Alcohol Dependence, Opioid Dependence, Sedative Dependence - Physical Exam Results Vital Signs: Vital Signs Temperature 98.4 F 01/03/19 07:39 Pulse Rate 77 01/03/19 07:39 Respiratory Rate 18 01/03/19 07:39 Blood Pressure 120/65 01/03/19 07:39 O2 Sat by Pulse Oximetry (%) Pertinent Admission Physical Exam Findings: pt arrived in withdrawals Laboratory Tests 12/29/18 12/29/18 12/29/18 13:00 13:00 13:00 WBC 7.0 RBC 4.67 Hgb 12.7 Hct 39.2 MCV 84.0 MCH 27.3 MCHC 32.5 RDW 13.5 Plt Count 246 MPV 9.3 Sodium 140 Potassium 4.1 Chloride 108 H Carbon Dioxide 25 Anion Gap 7 L BUN 12.7 Creatinine 0.8 Est GFR (CKD-EPI)AfAm 136.99 Est GFR (CKD-EPI)NonAf 118.20 Random Glucose 80 Calcium 9.0 Total Bilirubin 0.2 AST 17 ALT 26 Alkaline Phosphatase 57 Total Protein 7.4 Albumin 4.4 RPR Titer Nonreactive HIV 1&2 Antibody Screen HIV P24 Antigen 12/30/18 05:50 WBC RBC Hgb Hct MCV MCH MCHC RDW Plt Count MPV Sodium Potassium Chloride Carbon Dioxide Anion Gap BUN Creatinine Est GFR (CKD-EPI)AfAm Est GFR (CKD-EPI)NonAf Random Glucose Calcium Total Bilirubin AST ALT Alkaline Phosphatase Total Protein Albumin RPR Titer HIV 1&2 Antibody Screen Negative HIV P24 Antigen Negative Vital Signs Temperature 98.4 F 01/03/19 07:39 Pulse Rate 77 01/03/19 07:39 Respiratory Rate 18 01/03/19 07:39 Blood Pressure 120/65 01/03/19 07:39 O2 Sat by Pulse Oximetry (%) pt is aaox3 ambulating no acute distress - Treatment Hospital Course: Detox Protocol Followed, Detoxed Safely, Responded well, Discharged Condition Good, Rehab Referral Accepted - Medication Discharge Medications: Ambulatory Orders Gabapentin [Neurontin -] 300 mg PO QID 06/14/17 Buprenorphine/Naloxone [Suboxone 8Mg/2Mg Sl Film -] 1 each SL BID 12/29/18 Valproic Acid [Depakene] 250 mg PO Q12H 12/29/18 - Diagnosis (1) Alcohol dependence with uncomplicated withdrawal Status: Chronic (2) Depression Status: Acute Qualifiers: Depression Type: unspecified Qualified Code(s): F32.9 - Major depressive disorder, single episode, unspecified (3) Sedative, hypnotic or anxiolytic dependence with withdrawal, uncomplicated Status: Chronic (4) Anxiety disorder Status: Chronic (5) Cannabis dependence Status: Chronic (6) Cocaine dependence, uncomplicated Status: Chronic (7) Depression with anxiety Status: Chronic (8) Drug-induced mood disorder Status: Chronic (9) Encounter for monitoring Suboxone maintenance therapy Status: Chronic (10) History of attention deficit hyperactivity disorder (ADHD) Status: Chronic (11) History of depression Status: Chronic (12) Insomnia Status: Chronic Qualifiers: Insomnia type: unspecified Qualified Code(s): G47.00 - Insomnia, unspecified (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
== END 2019-01-03 08:17 | disposition home or self-care (01) | DRG 773 ==
LOC: YASAS 10:03 → Y6N 12:58
PROVIDERS: ADMIT Allergy & Immunology; ATTEND Allergy & Immunology
PROC: HZ2ZZZZ Detoxification Services for Substance Abuse Treatment (ICD-10-PCS; principal; 2018-12-29)
DX: F10.230 Alcohol dependence with withdrawal, uncomplicated (principal); F11.20 Opioid dependence, uncomplicated; F13.230 Sedative, hypnotic or anxiolytic dependence with withdrawal, uncomplicated; F14.20 Cocaine dependence, uncomplicated; F12.20 Cannabis dependence, uncomplicated; F17.210 Nicotine dependence, cigarettes, uncomplicated; F41.9 Anxiety disorder, unspecified; F32.9 Major depressive disorder, single episode, unspecified; F19.24 Other psychoactive substance dependence with psychoactive substance-induced mood disorder; G47.00 Insomnia, unspecified; Z91.19 Patient's noncompliance with other medical treatment and regimen
CPT/HCPCS: 36415; 80053; 85027; 86593; 87389; Q2036

== ENCOUNTER 2020-12-24 09:54 | Inpatient (IN) | payer OTHER ==
[2020-12-24 10:28] VITALS: BMI 27.0
[2020-12-24] MEDS ORDERED: IBUPROFEN 400 MG TABLET (FP) PO PRN (11:43)
[2020-12-24] MEDS ORDERED: MAG HYDROX/AL HYDROX/SIMETH 30 ML UNIT-DOSE CUP PO PRN (11:43)
[2020-12-24] MEDS ORDERED: cloNIDine HCL 0.1 MG TABLET PO PRN (11:43)
[2020-12-24] MEDS ORDERED: ACETAMINOPHEN 325 MG TABLET (FP) PO PRN ×2 (11:43)
[2020-12-24] MEDS ORDERED: MAGNESIUM CITRATE 300 ML BOTTLE PO PRN (11:43)
[2020-12-24] MEDS ORDERED: MAGNESIUM HYDROX 2400MG/30ML ORAL SUSPENSION 30 ML CUP PO PRN (11:43)
[2020-12-24] MEDS ORDERED: BISMUTH SUBSALICYLATE 524 MG/30 ML PO PRN (11:43)
[2020-12-24] MEDS ORDERED: methaDONE HCL 10 MG TABLET (FOR DETOX USE ONLY) PO ONE (11:43)
[2020-12-24] MEDS ORDERED: MENTHOL/PHENOL 1 EACH UD MM PRN (11:43)
[2020-12-24] MEDS ORDERED: ONDANSETRON *ODT* 4 MG TABLET SL PRN (11:43)
[2020-12-24] MEDS: PRENATAL VITAMINS W/ FOLIC ACID TABLET (FP) PO SCH (11:57)
[2020-12-24] MEDS: NICOTINE POLACRILEX 4 MG GUM BUC PRN ×4 (11:58→22:40)
[2020-12-24] MEDS: NICOTINE 14 MG/24 HOURS TOPICAL PATCH TD SCH (11:58)
[2020-12-24] MEDS: diazePAM 5 MG TABLET PO PRN ×2 (11:58→19:46)
[2020-12-24] MEDS: hydrOXYzine PAMOATE 25 MG CAPSULE (FP) PO SCH ×3 (15:01→22:35)
[2020-12-24] MEDS: diazePAM 5 MG TABLET PO SCH ×3 (15:01→22:36)
[2020-12-24] MEDS: METHOCARBAMOL 500 MG TABLET PO PRN ×2 (15:01→22:36)
[2020-12-24] MEDS: NICOTINE 10 MG CARTRIDGE (INHALER) IH PRN ×2 (15:02→19:46)
[2020-12-24 17:37] LABS: HEMATOCRIT 34.6 % (35.4-49); HEMOGLOBIN 11.5 GM/dL (11.7-16.9); MCH 25.8 pg (25.7-33.7); MCHC 33.3 g/dl (32.0-35.9); MEAN CELL VOLUME 77.6 fl (80-96); MEAN PLT VOLUME 8.5 fl (7.5-11.1); PLATELET COUNT 283 10^3/uL (134-434); RBC 4.45 M/mm3 (4.00-5.60); RDW 14.3 % (11.9-15.9); WHITE BLOOD COUNT 7.4 K/mm3 (4.0-10.0)
[2020-12-24 17:50] LABS: ALBUMIN 3.8 g/dl (3.4-5.0); CALCIUM 8.5 mg/dL (8.5-10.1)
[2020-12-24 17:51] LABS: BLOOD UREA NITROGEN 12.4 mg/dL (7-18)
[2020-12-24 17:54] LABS: CREATININE 0.7 mg/dL (0.55-1.3)
[2020-12-24 17:55] LABS: BILIRUBIN,TOTAL 0.8 mg/dL (0.2-1); TOT PROT 7.2 g/dl (6.4-8.2)
[2020-12-24] MEDS ORDERED: MELATONIN 5 MG TABLETS PO SCH (22:00)
[2020-12-24] MEDS ORDERED: THIAMINE HCL 100 MG TABLET (FP) PO SCH (22:00)
[2020-12-25] MEDS: hydrOXYzine PAMOATE 25 MG CAPSULE (FP) PO SCH ×2 (05:49→10:31)
[2020-12-25] MEDS: diazePAM 5 MG TABLET PO SCH ×2 (05:49→10:31)
[2020-12-25] MEDS: NICOTINE 10 MG CARTRIDGE (INHALER) IH PRN (05:53)
[2020-12-25] MEDS: NICOTINE POLACRILEX 4 MG GUM BUC PRN ×2 (05:55→10:36)
[2020-12-25] MEDS: diazePAM 5 MG TABLET PO PRN (08:40)
[2020-12-25] MEDS: METHOCARBAMOL 500 MG TABLET PO PRN (08:40)
[2020-12-25 09:27] VITALS: BP 119/82; PULSE 72; TEMP 97.2
[2020-12-25] MEDS ORDERED: methaDONE HCL 10 MG TABLET (FOR DETOX USE ONLY) ONE (09:47)
[2020-12-25] MEDS: NICOTINE 14 MG/24 HOURS TOPICAL PATCH TD SCH (10:30)
[2020-12-25] MEDS: PRENATAL VITAMINS W/ FOLIC ACID TABLET (FP) PO SCH (10:32)
[2020-12-25] MEDS ORDERED: hydrOXYzine PAMOATE 25 MG CAPSULE (FP) PO PRN (10:37)
[2020-12-25] MEDS ORDERED: FLU VACC QS2021-22(6MOS UP)/PF 60 MCG/0.5 ML SYRINGE IM ONE (12:00)
[2020-12-26] MEDS ORDERED: diazePAM 5 MG TABLET PO SCH (06:00)
[2020-12-26] MEDS ORDERED: methaDONE HCL 10 MG TABLET (FOR DETOX USE ONLY) PO ONE (10:00)
[2020-12-27] MEDS ORDERED: diazePAM 5 MG TABLET PO SCH (06:00)
[2020-12-28] MEDS ORDERED: diazePAM 5 MG TABLET PO ONE (06:00)
[2020-12-28] MEDS ORDERED: methaDONE HCL 10 MG TABLET (FOR DETOX USE ONLY) PO ONE (10:00)
== END 2020-12-25 10:27 | disposition left against medical advice (07) | DRG 770 ==
LOC: YASAS 09:54 → Y3N 12:45
PROVIDERS: ADMIT Allergy & Immunology; ATTEND Allergy & Immunology
PROC: HZ2ZZZZ Detoxification Services for Substance Abuse Treatment (ICD-10-PCS; principal; 2020-12-24)
DX: F11.23 Opioid dependence with withdrawal (principal); F10.230 Alcohol dependence with withdrawal, uncomplicated; F13.20 Sedative, hypnotic or anxiolytic dependence, uncomplicated; F14.20 Cocaine dependence, uncomplicated; F12.20 Cannabis dependence, uncomplicated; F17.210 Nicotine dependence, cigarettes, uncomplicated; F19.24 Other psychoactive substance dependence with psychoactive substance-induced mood disorder; F32.9 Major depressive disorder, single episode, unspecified; F41.9 Anxiety disorder, unspecified; G47.00 Insomnia, unspecified; Z51.81 Encounter for therapeutic drug level monitoring; Z91.19 Patient's noncompliance with other medical treatment and regimen
CPT/HCPCS: 36415; 80053; 85027; 86780; C9803; U0003; U0005

== ENCOUNTER 2021-01-08 10:31 | Inpatient (IN) | payer OTHER ==
[2021-01-08 11:36] VITALS: BMI 27.6
[2021-01-08] MEDS ORDERED: MAG HYDROX/AL HYDROX/SIMETH 30 ML UNIT-DOSE CUP PO PRN (12:59)
[2021-01-08] MEDS ORDERED: MENTHOL/PHENOL 1 EACH UD MM PRN (12:59)
[2021-01-08] MEDS ORDERED: ONDANSETRON *ODT* 4 MG TABLET SL PRN (12:59)
[2021-01-08] MEDS ORDERED: MAGNESIUM HYDROX 2400MG/30ML ORAL SUSPENSION 30 ML CUP PO PRN (12:59)
[2021-01-08] MEDS ORDERED: BISMUTH SUBSALICYLATE 524 MG/30 ML PO PRN (12:59)
[2021-01-08] MEDS ORDERED: MAGNESIUM CITRATE 300 ML BOTTLE PO PRN (12:59)
[2021-01-08] MEDS ORDERED: ACETAMINOPHEN 325 MG TABLET (FP) PO PRN ×2 (12:59)
[2021-01-08] MEDS ORDERED: hydrOXYzine PAMOATE 25 MG CAPSULE (FP) PO SCH (14:00)
[2021-01-08] MEDS: diazePAM 5 MG TABLET PO PRN ×2 (14:22→23:55)
[2021-01-08] MEDS: NICOTINE 10 MG CARTRIDGE (INHALER) IH PRN ×3 (14:25→22:18)
[2021-01-08] MEDS: METHOCARBAMOL 500 MG TABLET PO PRN ×2 (14:26→21:02)
[2021-01-08] MEDS: NICOTINE 21 MG/24 HOURS TOPICAL PATCH TD SCH (14:47)
[2021-01-08] MEDS: NICOTINE POLACRILEX 4 MG GUM BUC PRN ×4 (14:48→23:55)
[2021-01-08 16:58] LABS: HEMATOCRIT 37.8 % (35.4-49); HEMOGLOBIN 12.5 GM/dL (11.7-16.9); MCH 25.9 pg (25.7-33.7); MEAN CELL VOLUME 78.6 fl (80-96); MEAN PLT VOLUME 8.2 fl (7.5-11.1); PLATELET COUNT 288 10^3/uL (134-434); RBC 4.81 M/mm3 (4.00-5.60); RDW 14.2 % (11.9-15.9); WHITE BLOOD COUNT 6.7 K/mm3 (4.0-10.0)
[2021-01-08 17:00] LABS: ALBUMIN 4.2 g/dl (3.4-5.0); CALCIUM 9.2 mg/dL (8.5-10.1)
[2021-01-08 17:01] LABS: BLOOD UREA NITROGEN 10.8 mg/dL (7-18)
[2021-01-08 17:04] LABS: BILIRUBIN,TOTAL 0.5 mg/dL (0.2-1); CREATININE 0.8 mg/dL (0.55-1.3); TOT PROT 8.3 g/dl (6.4-8.2)
[2021-01-08] MEDS: IBUPROFEN 400 MG TABLET (FP) PO PRN (17:55)
[2021-01-08] MEDS: diazePAM 5 MG TABLET PO SCH ×2 (17:57→22:18)
[2021-01-08] MEDS: THIAMINE HCL 100 MG TABLET (FP) PO SCH (22:17)
[2021-01-08] MEDS: MELATONIN 5 MG TABLETS PO SCH (22:17)
[2021-01-08] MEDS: GABAPENTIN 300 MG CAPSULE PO SCH (22:17)
[2021-01-08] MEDS: QUEtiapine FUMARATE 50 MG TABLET PO SCH (22:18)
[2021-01-09] MEDS ORDERED: methaDONE HCL 10 MG TABLET ONE (04:51)
[2021-01-09] MEDS ORDERED: methaDONE HCL 40 MG DISPERSABLE TABLET ONE (04:51)
[2021-01-09] MEDS ORDERED: methaDONE HCL 10 MG TABLET PO SCH (06:00)
[2021-01-09] MEDS: GABAPENTIN 300 MG CAPSULE PO SCH ×3 (06:14→22:40)
[2021-01-09] MEDS: diazePAM 5 MG TABLET PO SCH ×4 (06:15→22:42)
[2021-01-09] MEDS: METHOCARBAMOL 500 MG TABLET PO PRN ×2 (06:15→15:44)
[2021-01-09] MEDS: NICOTINE POLACRILEX 4 MG GUM BUC PRN ×7 (06:18→22:44)
[2021-01-09] MEDS: NICOTINE 10 MG CARTRIDGE (INHALER) IH PRN ×4 (06:18→20:05)
[2021-01-09] MEDS: methaDONE 40 MG, methaDONE 10 MG PO SCH (06:42)
[2021-01-09] MEDS: diazePAM 5 MG TABLET PO PRN ×3 (08:32→20:03)
[2021-01-09] MEDS ORDERED: ESCITALOPRAM OXALATE 20 MG TABLET PO SCH (10:00)
[2021-01-09] MEDS: PRENATAL VITAMINS W/ FOLIC ACID TABLET (FP) PO SCH (10:51)
[2021-01-09] MEDS: ESCITALOPRAM OXALATE 10 MG TABLET PO SCH (10:51)
[2021-01-09] MEDS: IBUPROFEN 400 MG TABLET (FP) PO PRN (10:53)
[2021-01-09] MEDS: NICOTINE 21 MG/24 HOURS TOPICAL PATCH TD SCH (11:09)
[2021-01-09] MEDS: THIAMINE HCL 100 MG TABLET (FP) PO SCH (22:40)
[2021-01-09] MEDS: QUEtiapine FUMARATE 50 MG TABLET PO SCH (22:40)
[2021-01-09] MEDS: MELATONIN 5 MG TABLETS PO SCH (22:40)
[2021-01-10] MEDS ORDERED: methaDONE HCL 10 MG TABLET ONE (04:39)
[2021-01-10] MEDS ORDERED: methaDONE HCL 40 MG DISPERSABLE TABLET ONE (04:39)
[2021-01-10] MEDS: diazePAM 5 MG TABLET PO SCH ×3 (06:47→22:30)
[2021-01-10] MEDS: GABAPENTIN 300 MG CAPSULE PO SCH ×3 (06:47→22:30)
[2021-01-10] MEDS: methaDONE 40 MG, methaDONE 10 MG PO SCH (06:48)
[2021-01-10] MEDS: NICOTINE POLACRILEX 4 MG GUM BUC PRN ×4 (06:51→21:17)
[2021-01-10] MEDS: NICOTINE 10 MG CARTRIDGE (INHALER) IH PRN ×3 (06:51→21:18)
[2021-01-10] MEDS: NICOTINE 21 MG/24 HOURS TOPICAL PATCH TD SCH (10:39)
[2021-01-10] MEDS: PRENATAL VITAMINS W/ FOLIC ACID TABLET (FP) PO SCH (10:40)
[2021-01-10] MEDS: ESCITALOPRAM OXALATE 10 MG TABLET PO SCH (10:40)
[2021-01-10] MEDS: diazePAM 5 MG TABLET PO PRN ×2 (10:42→16:50)
[2021-01-10] MEDS: METHOCARBAMOL 500 MG TABLET PO PRN (16:49)
[2021-01-10] MEDS: THIAMINE HCL 100 MG TABLET (FP) PO SCH (22:30)
[2021-01-10] MEDS: QUEtiapine FUMARATE 50 MG TABLET PO SCH (22:30)
[2021-01-10] MEDS: MELATONIN 5 MG TABLETS PO SCH (22:30)
[2021-01-11] MEDS ORDERED: methaDONE HCL 40 MG DISPERSABLE TABLET ONE (04:18)
[2021-01-11] MEDS ORDERED: methaDONE HCL 10 MG TABLET ONE (04:18)
[2021-01-11] MEDS: methaDONE 40 MG, methaDONE 10 MG PO SCH (05:37)
[2021-01-11] MEDS: GABAPENTIN 300 MG CAPSULE PO SCH ×3 (05:38→22:14)
[2021-01-11] MEDS: diazePAM 5 MG TABLET PO SCH ×2 (05:38→18:33)
[2021-01-11] MEDS: METHOCARBAMOL 500 MG TABLET PO PRN ×3 (05:39→18:33)
[2021-01-11] MEDS: NICOTINE POLACRILEX 4 MG GUM BUC PRN ×6 (05:40→22:17)
[2021-01-11] MEDS: NICOTINE 10 MG CARTRIDGE (INHALER) IH PRN ×4 (05:40→22:16)
[2021-01-11] MEDS: diazePAM 5 MG TABLET PO PRN ×2 (07:46→12:26)
[2021-01-11] MEDS: NICOTINE 21 MG/24 HOURS TOPICAL PATCH TD SCH (10:43)
[2021-01-11] MEDS: ESCITALOPRAM OXALATE 10 MG TABLET PO SCH (10:44)
[2021-01-11] MEDS: PRENATAL VITAMINS W/ FOLIC ACID TABLET (FP) PO SCH (10:45)
[2021-01-11] MEDS: THIAMINE HCL 100 MG TABLET (FP) PO SCH (22:14)
[2021-01-11] MEDS: MELATONIN 5 MG TABLETS PO SCH (22:14)
[2021-01-11] MEDS: QUEtiapine FUMARATE 50 MG TABLET PO SCH (22:14)
[2021-01-12] MEDS ORDERED: methaDONE HCL 40 MG DISPERSABLE TABLET ONE (04:18)
[2021-01-12] MEDS ORDERED: methaDONE HCL 10 MG TABLET ONE (04:18)
[2021-01-12] MEDS ORDERED: diazePAM 5 MG TABLET PO ONE (06:00)
[2021-01-12] MEDS: GABAPENTIN 300 MG CAPSULE PO SCH (06:04)
[2021-01-12] MEDS: methaDONE 40 MG, methaDONE 10 MG PO SCH (06:04)
[2021-01-12] MEDS: NICOTINE 10 MG CARTRIDGE (INHALER) IH PRN ×2 (06:08→10:52)
[2021-01-12] MEDS: NICOTINE POLACRILEX 4 MG GUM BUC PRN (06:08)
[2021-01-12] MEDS: METHOCARBAMOL 500 MG TABLET PO PRN (06:10)
[2021-01-12 09:32] VITALS: BP 100/70; PULSE 92; TEMP 96.9
[2021-01-12] MEDS: NICOTINE 21 MG/24 HOURS TOPICAL PATCH TD SCH (09:56)
[2021-01-12] MEDS: ESCITALOPRAM OXALATE 10 MG TABLET PO SCH (09:56)
[2021-01-12] MEDS: PRENATAL VITAMINS W/ FOLIC ACID TABLET (FP) PO SCH (09:56)
== END 2021-01-12 11:05 | disposition other institution (70) | DRG 773 ==
LOC: YASAS 10:31 → Y3N 13:50
PROVIDERS: ADMIT Allergy & Immunology; ATTEND Allergy & Immunology
PROC: HZ2ZZZZ Detoxification Services for Substance Abuse Treatment (ICD-10-PCS; principal; 2021-01-08)
DX: F10.230 Alcohol dependence with withdrawal, uncomplicated (principal); F11.20 Opioid dependence, uncomplicated; F13.20 Sedative, hypnotic or anxiolytic dependence, uncomplicated; F14.20 Cocaine dependence, uncomplicated; F12.20 Cannabis dependence, uncomplicated; F17.210 Nicotine dependence, cigarettes, uncomplicated; F19.24 Other psychoactive substance dependence with psychoactive substance-induced mood disorder; F41.9 Anxiety disorder, unspecified; F32.A Depression, unspecified; G47.00 Insomnia, unspecified; Z86.59 Personal history of other mental and behavioral disorders
CPT/HCPCS: 36415; 80053; 85027; 86780; C9803; U0003; U0005

== ENCOUNTER 2021-06-24 10:11 | Inpatient (IN) | payer OTHER ==
[2021-06-24] MEDS ORDERED: LOPERAMIDE HCL 2 MG CAPSULE PO PRN (11:12)
[2021-06-24] MEDS ORDERED: MENTHOL/PHENOL 1 EACH UD MM PRN (11:12)
[2021-06-24] MEDS ORDERED: DICYCLOMINE HCL 10 MG CAPSULE PO PRN (11:12)
[2021-06-24] MEDS ORDERED: MAGNESIUM CITRATE 300 ML BOTTLE PO PRN (11:12)
[2021-06-24] MEDS ORDERED: IBUPROFEN 400 MG TABLET (FP) PO PRN (11:12)
[2021-06-24] MEDS ORDERED: MAGNESIUM HYDROX 2400MG/30ML ORAL SUSPENSION 30 ML CUP PO PRN (11:12)
[2021-06-24] MEDS ORDERED: MAG HYDROX/AL HYDROX/SIMETH 30 ML UNIT-DOSE CUP PO PRN (11:12)
[2021-06-24] MEDS ORDERED: ONDANSETRON *ODT* 4 MG TABLET SL PRN (11:12)
[2021-06-24] MEDS ORDERED: BISMUTH SUBSALICYLATE 262 MG/15 ML BTL PO PRN (11:12)
[2021-06-24] MEDS ORDERED: ACETAMINOPHEN 325 MG TABLET (FP) PO PRN ×2 (11:12)
[2021-06-24 11:36] VITALS: BMI 29.0
[2021-06-24] MEDS: chlordiazePOXIDE HCL 25 MG CAPSULE PO SCH ×3 (13:21→22:11)
[2021-06-24] MEDS: hydrOXYzine PAMOATE 25 MG CAPSULE (FP) PO SCH ×3 (13:22→22:10)
[2021-06-24] MEDS: NICOTINE POLACRILEX 4 MG GUM BUC PRN ×3 (13:22→22:12)
[2021-06-24 15:18] LABS: HEMATOCRIT 38.5 % (35.4-49); HEMOGLOBIN 12.4 GM/dL (11.7-16.9); MCH 25.4 pg (25.7-33.7); MCHC 32.3 g/dl (32.0-35.9); MEAN CELL VOLUME 78.7 fl (80-96); MEAN PLT VOLUME 8.6 fl (7.5-11.1); PLATELET COUNT 310 10^3/uL (134-434); RDW 13.8 % (11.9-15.9); WHITE BLOOD COUNT 7.9 K/mm3 (4.0-10.0)
[2021-06-24 15:26] LABS: BLOOD UREA NITROGEN 9.8 mg/dL (7-18); CALCIUM 9.5 mg/dL (8.5-10.1)
[2021-06-24 15:29] LABS: CREATININE 0.8 mg/dL (0.55-1.3)
[2021-06-24 15:31] LABS: BILIRUBIN,TOTAL 0.5 mg/dL (0.2-1); TOT PROT 8.2 g/dl (6.4-8.2)
[2021-06-24] MEDS: NICOTINE 10 MG CARTRIDGE (INHALER) IH PRN ×2 (17:31→22:12)
[2021-06-24] MEDS: QUEtiapine FUMARATE 50 MG TABLET PO SCH (22:10)
[2021-06-24] MEDS: GABAPENTIN 100 MG CAPSULE PO SCH (22:10)
[2021-06-24] MEDS: MELATONIN 5 MG TABLETS PO SCH (22:10)
[2021-06-24] MEDS: THIAMINE HCL 100 MG TABLET (FP) PO SCH (22:10)
[2021-06-25] MEDS: GABAPENTIN 100 MG CAPSULE PO SCH ×3 (07:25→22:30)
[2021-06-25] MEDS: chlordiazePOXIDE HCL 25 MG CAPSULE PO SCH ×4 (07:25→22:31)
[2021-06-25] MEDS: hydrOXYzine PAMOATE 25 MG CAPSULE (FP) PO SCH ×5 (07:25→22:30)
[2021-06-25] MEDS: NICOTINE 10 MG CARTRIDGE (INHALER) IH PRN ×5 (07:26→22:30)
[2021-06-25] MEDS: NICOTINE POLACRILEX 4 MG GUM BUC PRN ×6 (07:29→21:05)
[2021-06-25] MEDS: methaDONE HCL 40 MG DISPERSABLE TABLET PO SCH (10:11)
[2021-06-25] MEDS: ESCITALOPRAM OXALATE 10 MG TABLET PO SCH (10:12)
[2021-06-25] MEDS: PRENATAL VITAMINS W/ FOLIC ACID TABLET (FP) PO SCH (10:16)
[2021-06-25] MEDS: METHOCARBAMOL 500 MG TABLET PO PRN ×2 (11:38→21:04)
[2021-06-25] MEDS: chlordiazePOXIDE HCL 25 MG CAPSULE PO PRN (12:29)
[2021-06-25] MEDS: QUEtiapine FUMARATE 50 MG TABLET PO SCH (22:30)
[2021-06-25] MEDS: MELATONIN 5 MG TABLETS PO SCH (22:30)
[2021-06-25] MEDS: THIAMINE HCL 100 MG TABLET (FP) PO SCH (22:30)
[2021-06-26] MEDS: chlordiazePOXIDE HCL 25 MG CAPSULE PO SCH ×4 (05:52→18:00)
[2021-06-26] MEDS: methaDONE HCL 40 MG DISPERSABLE TABLET PO SCH (05:52)
[2021-06-26] MEDS: GABAPENTIN 100 MG CAPSULE PO SCH ×3 (05:53→22:14)
[2021-06-26] MEDS: hydrOXYzine PAMOATE 25 MG CAPSULE (FP) PO SCH ×5 (05:53→22:15)
[2021-06-26] MEDS: NICOTINE 10 MG CARTRIDGE (INHALER) IH PRN ×5 (05:58→22:20)
[2021-06-26] MEDS: NICOTINE POLACRILEX 4 MG GUM BUC PRN ×6 (05:58→22:21)
[2021-06-26] MEDS: chlordiazePOXIDE HCL 25 MG CAPSULE PO PRN ×3 (08:39→19:59)
[2021-06-26] MEDS: PRENATAL VITAMINS W/ FOLIC ACID TABLET (FP) PO SCH (10:15)
[2021-06-26] MEDS: ESCITALOPRAM OXALATE 10 MG TABLET PO SCH (10:15)
[2021-06-26] MEDS: METHOCARBAMOL 500 MG TABLET PO PRN ×2 (15:50→22:15)
[2021-06-26] MEDS: THIAMINE HCL 100 MG TABLET (FP) PO SCH (22:15)
[2021-06-26] MEDS: MELATONIN 5 MG TABLETS PO SCH (22:15)
[2021-06-26] MEDS: QUEtiapine FUMARATE 50 MG TABLET PO SCH (22:15)
[2021-06-27] MEDS ORDERED: chlordiazePOXIDE HCL 10 MG CAPSULE PO PRN
[2021-06-27 00:07] LABS: SARS-CoV-2 NAA Not Detected (Not Detected)
[2021-06-27] MEDS ORDERED: chlordiazePOXIDE HCL 10 MG CAPSULE PO SCH (05:00)
[2021-06-27] MEDS: GABAPENTIN 100 MG CAPSULE PO SCH ×3 (05:38→22:19)
[2021-06-27] MEDS: methaDONE HCL 40 MG DISPERSABLE TABLET PO SCH (05:38)
[2021-06-27] MEDS: hydrOXYzine PAMOATE 25 MG CAPSULE (FP) PO SCH ×5 (05:38→22:19)
[2021-06-27] MEDS: chlordiazePOXIDE HCL 10 MG CAPSULE PO SCH ×4 (05:38→22:19)
[2021-06-27] MEDS: NICOTINE 10 MG CARTRIDGE (INHALER) IH PRN ×5 (05:41→22:21)
[2021-06-27] MEDS: METHOCARBAMOL 500 MG TABLET PO PRN ×2 (07:57→14:48)
[2021-06-27] MEDS: PRENATAL VITAMINS W/ FOLIC ACID TABLET (FP) PO SCH (10:33)
[2021-06-27] MEDS: ESCITALOPRAM OXALATE 10 MG TABLET PO SCH (10:33)
[2021-06-27] MEDS: NICOTINE POLACRILEX 4 MG GUM BUC PRN ×5 (10:35→22:20)
[2021-06-27] MEDS: chlordiazePOXIDE HCL 10 MG CAPSULE PO PRN ×2 (13:03→20:12)
[2021-06-27] MEDS: QUEtiapine FUMARATE 50 MG TABLET PO SCH (22:19)
[2021-06-27] MEDS: MELATONIN 5 MG TABLETS PO SCH (22:19)
[2021-06-27] MEDS: THIAMINE HCL 100 MG TABLET (FP) PO SCH (22:19)
[2021-06-28] MEDS ORDERED: chlordiazePOXIDE HCL 10 MG CAPSULE PO SCH (05:00)
[2021-06-28] MEDS: hydrOXYzine PAMOATE 25 MG CAPSULE (FP) PO SCH ×5 (06:15→22:47)
[2021-06-28] MEDS: chlordiazePOXIDE HCL 10 MG CAPSULE PO SCH ×2 (06:15→17:23)
[2021-06-28] MEDS: methaDONE HCL 40 MG DISPERSABLE TABLET PO SCH (06:15)
[2021-06-28] MEDS: GABAPENTIN 100 MG CAPSULE PO SCH ×3 (06:16→22:47)
[2021-06-28] MEDS: NICOTINE 10 MG CARTRIDGE (INHALER) IH PRN ×4 (06:18→22:53)
[2021-06-28] MEDS: NICOTINE POLACRILEX 4 MG GUM BUC PRN ×7 (06:19→22:52)
[2021-06-28] MEDS: PRENATAL VITAMINS W/ FOLIC ACID TABLET (FP) PO SCH (10:18)
[2021-06-28] MEDS: ESCITALOPRAM OXALATE 10 MG TABLET PO SCH (10:18)
[2021-06-28] MEDS: METHOCARBAMOL 500 MG TABLET PO PRN ×3 (10:18→22:51)
[2021-06-28] MEDS: NICOTINE 21 MG/24 HOURS TOPICAL PATCH TD SCH (17:19)
[2021-06-28] MEDS: QUEtiapine FUMARATE 50 MG TABLET PO SCH (22:47)
[2021-06-28] MEDS: THIAMINE HCL 100 MG TABLET (FP) PO SCH (22:47)
[2021-06-28] MEDS: MELATONIN 5 MG TABLETS PO SCH (22:47)
[2021-06-29] MEDS ORDERED: chlordiazePOXIDE HCL 10 MG CAPSULE PO ONE ×2 (05:00)
[2021-06-29] MEDS: GABAPENTIN 100 MG CAPSULE PO SCH (05:41)
[2021-06-29] MEDS: hydrOXYzine PAMOATE 25 MG CAPSULE (FP) PO SCH ×2 (05:41→09:26)
[2021-06-29] MEDS: methaDONE HCL 40 MG DISPERSABLE TABLET PO SCH (05:42)
[2021-06-29] MEDS: NICOTINE POLACRILEX 4 MG GUM BUC PRN ×2 (05:46→07:56)
[2021-06-29] MEDS: NICOTINE 10 MG CARTRIDGE (INHALER) IH PRN ×2 (05:51→10:08)
[2021-06-29 08:41] VITALS: BP 122/77; PULSE 79; TEMP 97.3
[2021-06-29] MEDS: ESCITALOPRAM OXALATE 10 MG TABLET PO SCH (09:26)
[2021-06-29] MEDS: NICOTINE 21 MG/24 HOURS TOPICAL PATCH TD SCH (09:26)
[2021-06-29] MEDS: PRENATAL VITAMINS W/ FOLIC ACID TABLET (FP) PO SCH (09:27)
== END 2021-06-29 11:55 | disposition other institution (70) | DRG 773 ==
LOC: YASAS 10:11 → Y3N 12:49
PROVIDERS: ADMIT Allergy & Immunology; ATTEND Allergy & Immunology
PROC: HZ2ZZZZ Detoxification Services for Substance Abuse Treatment (ICD-10-PCS; principal; 2021-06-24)
DX: F10.230 Alcohol dependence with withdrawal, uncomplicated (principal); F11.23 Opioid dependence with withdrawal; F13.230 Sedative, hypnotic or anxiolytic dependence with withdrawal, uncomplicated; F14.20 Cocaine dependence, uncomplicated; F12.20 Cannabis dependence, uncomplicated; F17.210 Nicotine dependence, cigarettes, uncomplicated; F41.9 Anxiety disorder, unspecified; F32.A Depression, unspecified; F90.9 Attention-deficit hyperactivity disorder, unspecified type; G47.00 Insomnia, unspecified
CPT/HCPCS: 36415; 80053; 85027; 86780; 87811; C9803-CS; U0003; U0005

== ENCOUNTER 2022-01-22 09:50 | Inpatient (IN) | payer OTHER ==
[2022-01-22 11:16] VITALS: BMI 27.8
[2022-01-22] MEDS ORDERED: MAGNESIUM CITRATE 300 ML BOTTLE PO PRN (12:13)
[2022-01-22] MEDS ORDERED: chlordiazePOXIDE HCL 25 MG CAPSULE PO ONE (12:13)
[2022-01-22] MEDS ORDERED: MAGNESIUM HYDROX 2400MG/30ML ORAL SUSPENSION 30 ML CUP PO PRN (12:13)
[2022-01-22] MEDS ORDERED: BISMUTH SUBSALICYLATE 524 MG/30 ML PO PRN (12:13)
[2022-01-22] MEDS ORDERED: IBUPROFEN 600 MG TABLET (FP) PO PRN (12:13)
[2022-01-22] MEDS ORDERED: DICYCLOMINE HCL 10 MG CAPSULE PO PRN (12:13)
[2022-01-22] MEDS ORDERED: IBUPROFEN 400 MG TABLET (FP) PO PRN (12:13)
[2022-01-22] MEDS ORDERED: MAG HYDROX/AL HYDROX/SIMETH 30 ML UNIT-DOSE CUP PO PRN (12:13)
[2022-01-22] MEDS ORDERED: NALOXONE HCL (KLOXXADO) 8 MG SPRAY NS PRN (12:13)
[2022-01-22] MEDS ORDERED: ONDANSETRON *ODT* 4 MG TABLET SL PRN (12:13)
[2022-01-22] MEDS ORDERED: LOPERAMIDE HCL 2 MG CAPSULE PO PRN (12:13)
[2022-01-22] MEDS ORDERED: ACETAMINOPHEN 325 MG TABLET (FP) PO PRN ×2 (12:13)
[2022-01-22] MEDS ORDERED: BENZOCAINE/MENTHOL (CHLORASEPTIC ) LOZENGE MM PRN (12:13)
[2022-01-22] MEDS: PRENATAL VITAMINS W/ FOLIC ACID TABLET (FP) PO SCH (13:21)
[2022-01-22] MEDS: NICOTINE 10 MG CARTRIDGE (INHALER) IH PRN (13:28)
[2022-01-22] MEDS: NICOTINE POLACRILEX 4 MG GUM BUC PRN ×4 (13:30→22:22)
[2022-01-22 14:59] LABS: HEMATOCRIT 35.6 % (35.4-49); HEMOGLOBIN 11.9 GM/dL (11.7-16.9); MCH 26.9 pg (25.7-33.7); MCHC 33.3 g/dl (32.0-35.9); MEAN CELL VOLUME 80.7 fl (80-96); PLATELET COUNT 286 10^3/uL (134-434); RBC 4.41 M/mm3 (4.00-5.60); RDW 13.8 % (11.9-15.9); WHITE BLOOD COUNT 6.1 K/mm3 (4.0-10.0)
[2022-01-22 15:12] LABS: CALCIUM 9.2 mg/dL (8.5-10.1)
[2022-01-22 15:13] LABS: BLOOD UREA NITROGEN 11.5 mg/dL (7-18)
[2022-01-22 15:17] LABS: BILIRUBIN,TOTAL 0.2 mg/dL (0.2-1); CREATININE 0.7 mg/dL (0.55-1.3); TOT PROT 7.7 g/dl (6.4-8.2)
[2022-01-22] MEDS: chlordiazePOXIDE HCL 25 MG CAPSULE PO SCH ×2 (17:30→22:19)
[2022-01-22] MEDS: hydrOXYzine PAMOATE 25 MG CAPSULE (FP) PO PRN (18:39)
[2022-01-22] MEDS: METHOCARBAMOL 500 MG TABLET PO PRN (18:39)
[2022-01-22] MEDS: chlordiazePOXIDE HCL 25 MG CAPSULE PO PRN (19:42)
[2022-01-22] MEDS: THIAMINE HCL 100 MG TABLET (FP) PO SCH (22:19)
[2022-01-22] MEDS: MELATONIN 5 MG TABLETS PO SCH (22:19)
[2022-01-23] MEDS: methaDONE HCL 40 MG DISPERSABLE TABLET PO SCH (05:45)
[2022-01-23] MEDS: chlordiazePOXIDE HCL 25 MG CAPSULE PO SCH ×4 (05:45→22:43)
[2022-01-23] MEDS: NICOTINE POLACRILEX 4 MG GUM BUC PRN ×6 (05:50→21:28)
[2022-01-23] MEDS: NICOTINE 10 MG CARTRIDGE (INHALER) IH PRN ×4 (08:37→22:45)
[2022-01-23] MEDS: hydrOXYzine PAMOATE 25 MG CAPSULE (FP) PO PRN (08:37)
[2022-01-23] MEDS: METHOCARBAMOL 500 MG TABLET PO PRN (08:37)
[2022-01-23] MEDS: chlordiazePOXIDE HCL 25 MG CAPSULE PO PRN (08:38)
[2022-01-23] MEDS: PRENATAL VITAMINS W/ FOLIC ACID TABLET (FP) PO SCH (10:10)
[2022-01-23] MEDS ORDERED: ESCITALOPRAM OXALATE 20 MG TABLET PO ONE (10:26)
[2022-01-23] MEDS ORDERED: FLU VACC QS2022-23(6MOS UP)/PF 60 MCG/0.5 ML SYRINGE IM ONE (12:00)
[2022-01-23 12:25] LABS: HIV INTERPRETATION NEGATIVE (NEGATIVE)
[2022-01-23] MEDS: GABAPENTIN 300 MG CAPSULE PO SCH ×2 (13:16→22:43)
[2022-01-23] MEDS: THIAMINE HCL 100 MG TABLET (FP) PO SCH (22:43)
[2022-01-23] MEDS: MELATONIN 5 MG TABLETS PO SCH (22:43)
[2022-01-24] MEDS: methaDONE HCL 40 MG DISPERSABLE TABLET PO SCH (05:26)
[2022-01-24] MEDS: GABAPENTIN 300 MG CAPSULE PO SCH ×3 (05:26→22:05)
[2022-01-24] MEDS: chlordiazePOXIDE HCL 25 MG CAPSULE PO SCH ×4 (05:26→22:05)
[2022-01-24] MEDS: NICOTINE POLACRILEX 4 MG GUM BUC PRN ×7 (05:29→22:07)
[2022-01-24] MEDS: NICOTINE 10 MG CARTRIDGE (INHALER) IH PRN ×5 (05:30→22:07)
[2022-01-24] MEDS: chlordiazePOXIDE HCL 25 MG CAPSULE PO PRN ×3 (07:51→19:43)
[2022-01-24] MEDS: PRENATAL VITAMINS W/ FOLIC ACID TABLET (FP) PO SCH (10:06)
[2022-01-24] MEDS: ESCITALOPRAM OXALATE 20 MG TABLET PO SCH (10:06)
[2022-01-24] MEDS: METHOCARBAMOL 500 MG TABLET PO PRN ×2 (10:10→17:23)
[2022-01-24] MEDS: hydrOXYzine PAMOATE 25 MG CAPSULE (FP) PO PRN (12:15)
[2022-01-24] MEDS: THIAMINE HCL 100 MG TABLET (FP) PO SCH (22:05)
[2022-01-24] MEDS: MELATONIN 5 MG TABLETS PO SCH (22:05)
[2022-01-25] MEDS: methaDONE HCL 40 MG DISPERSABLE TABLET PO SCH (05:52)
[2022-01-25] MEDS: chlordiazePOXIDE HCL 10 MG CAPSULE PO SCH ×4 (05:53→22:02)
[2022-01-25] MEDS: GABAPENTIN 300 MG CAPSULE PO SCH ×3 (05:53→22:04)
[2022-01-25] MEDS: METHOCARBAMOL 500 MG TABLET PO PRN ×3 (05:53→19:50)
[2022-01-25] MEDS: NICOTINE 10 MG CARTRIDGE (INHALER) IH PRN ×4 (05:56→17:25)
[2022-01-25] MEDS: NICOTINE POLACRILEX 4 MG GUM BUC PRN ×8 (05:57→22:04)
[2022-01-25 09:00] VITALS: RESP 18
[2022-01-25] MEDS: PRENATAL VITAMINS W/ FOLIC ACID TABLET (FP) PO SCH (10:04)
[2022-01-25] MEDS: ESCITALOPRAM OXALATE 20 MG TABLET PO SCH (10:05)
[2022-01-25] MEDS: hydrOXYzine PAMOATE 25 MG CAPSULE (FP) PO PRN ×2 (10:05→19:50)
[2022-01-25] MEDS: chlordiazePOXIDE HCL 10 MG CAPSULE PO PRN ×2 (12:43→19:50)
[2022-01-25] MEDS ORDERED: SUVOREXANT 10 MG TABLET PO PRN ×2 (22:00→22:57)
[2022-01-25] MEDS: THIAMINE HCL 100 MG TABLET (FP) PO SCH (22:02)
[2022-01-26] MEDS ORDERED: chlordiazePOXIDE HCL 10 MG CAPSULE PO SCH (05:00)
[2022-01-26] MEDS: GABAPENTIN 300 MG CAPSULE PO SCH (06:09)
[2022-01-26] MEDS: methaDONE HCL 40 MG DISPERSABLE TABLET PO SCH (06:09)
[2022-01-26 07:18] VITALS: BP 105/61; PULSE 80; TEMP 98
[2022-01-27] MEDS ORDERED: chlordiazePOXIDE HCL 10 MG CAPSULE PO ONE (05:00)
== END 2022-01-26 08:50 | disposition home or self-care (01) | DRG 773 ==
LOC: YASAS 09:50 → Y6N 12:40
PROVIDERS: ADMIT Allergy & Immunology; ATTEND Surgery
PROC: HZ2ZZZZ Detoxification Services for Substance Abuse Treatment (ICD-10-PCS; principal; 2022-01-22)
DX: F10.230 Alcohol dependence with withdrawal, uncomplicated (principal); F11.20 Opioid dependence, uncomplicated; F14.20 Cocaine dependence, uncomplicated; F17.210 Nicotine dependence, cigarettes, uncomplicated; F19.280 Other psychoactive substance dependence with psychoactive substance-induced anxiety disorder; F19.24 Other psychoactive substance dependence with psychoactive substance-induced mood disorder; F41.9 Anxiety disorder, unspecified; F32.A Depression, unspecified; F90.9 Attention-deficit hyperactivity disorder, unspecified type; U07.1 COVID-19; Z91.199 Patient's noncompliance with other medical treatment and regimen due to unspecified reason
CPT/HCPCS: 36415; 80053; 85027; 86780; 87389; C9803-CS; U0003; U0005

== ENCOUNTER 2022-04-07 10:02 | Inpatient (IN) | payer OTHER ==
[2022-04-07 10:31] VITALS: BMI 25.4
[2022-04-07] MEDS ORDERED: ONDANSETRON *ODT* 4 MG TABLET SL PRN (12:31)
[2022-04-07] MEDS ORDERED: DICYCLOMINE HCL 10 MG CAPSULE PO PRN (12:31)
[2022-04-07] MEDS ORDERED: IBUPROFEN 600 MG TABLET (FP) PO PRN (12:31)
[2022-04-07] MEDS ORDERED: IBUPROFEN 400 MG TABLET (FP) PO PRN (12:31)
[2022-04-07] MEDS ORDERED: ACETAMINOPHEN 325 MG TABLET (FP) PO PRN ×2 (12:31)
[2022-04-07] MEDS ORDERED: POLYETHYLENE GLYCOL (HEALTHYLAX) 3350 17 GM PACKET PO PRN (12:31)
[2022-04-07] MEDS ORDERED: NALOXONE HCL (KLOXXADO) 8 MG SPRAY NS PRN (12:31)
[2022-04-07] MEDS ORDERED: MAG HYDROX/AL HYDROX/SIMETH 30 ML UNIT-DOSE CUP PO PRN (12:31)
[2022-04-07] MEDS ORDERED: BISMUTH SUBSALICYLATE 262 MG/15 ML BTL PO PRN (12:31)
[2022-04-07] MEDS ORDERED: MAGNESIUM HYDROX 2400MG/30ML ORAL SUSPENSION 30 ML CUP PO PRN (12:31)
[2022-04-07] MEDS ORDERED: BENZOCAINE/MENTHOL (CHLORASEPTIC ) LOZENGE MM PRN (12:31)
[2022-04-07] MEDS ORDERED: LOPERAMIDE HCL 2 MG CAPSULE PO PRN (12:31)
[2022-04-07] MEDS ORDERED: chlordiazePOXIDE HCL 25 MG CAPSULE ONE (12:46)
[2022-04-07] MEDS: chlordiazePOXIDE HCL 25 MG CAPSULE PO PRN ×2 (12:52→20:06)
[2022-04-07] MEDS ORDERED: NICOTINE POLACRILEX 4 MG GUM BUC ONE (13:18)
[2022-04-07] MEDS ORDERED: METHOCARBAMOL 500 MG TABLET ONE (13:19)
[2022-04-07] MEDS: METHOCARBAMOL 500 MG TABLET PO PRN (13:20)
[2022-04-07] MEDS: NICOTINE POLACRILEX 4 MG GUM BUC PRN ×4 (13:22→22:32)
[2022-04-07] MEDS: NICOTINE 10 MG CARTRIDGE (INHALER) IH PRN ×2 (13:29→20:06)
[2022-04-07] MEDS: GABAPENTIN 300 MG CAPSULE PO SCH ×2 (14:38→22:26)
[2022-04-07] MEDS: ESCITALOPRAM OXALATE 20 MG TABLET PO SCH (14:38)
[2022-04-07] MEDS: chlordiazePOXIDE HCL 25 MG CAPSULE PO SCH ×2 (16:34→22:26)
[2022-04-07] MEDS ORDERED: MELATONIN 5 MG TABLETS PO SCH (22:00)
[2022-04-07] MEDS: THIAMINE HCL 100 MG TABLET (FP) PO SCH (22:26)
[2022-04-07] MEDS: SUVOREXANT 10 MG TABLET PO PRN (22:29)
[2022-04-08] MEDS: chlordiazePOXIDE HCL 25 MG CAPSULE PO PRN ×2 (02:05→13:17)
[2022-04-08] MEDS: METHOCARBAMOL 500 MG TABLET PO PRN ×3 (02:05→22:42)
[2022-04-08] MEDS: NICOTINE POLACRILEX 4 MG GUM BUC PRN ×5 (02:07→22:46)
[2022-04-08] MEDS: chlordiazePOXIDE HCL 25 MG CAPSULE PO SCH ×4 (05:35→22:43)
[2022-04-08] MEDS: GABAPENTIN 300 MG CAPSULE PO SCH ×3 (05:35→22:42)
[2022-04-08] MEDS: NICOTINE 10 MG CARTRIDGE (INHALER) IH PRN ×5 (05:38→22:44)
[2022-04-08] MEDS ORDERED: methaDONE HCL 40 MG DISPERSABLE TABLET PO SCH (06:00)
[2022-04-08] MEDS: ESCITALOPRAM OXALATE 20 MG TABLET PO SCH (10:34)
[2022-04-08] MEDS: PRENATAL VITAMINS W/ FOLIC ACID TABLET (FP) PO SCH (10:34)
[2022-04-08 12:18] LABS: HEMOGLOBIN 12.7 GM/dL (11.7-16.9); MCH 26.2 pg (25.7-33.7); MCHC 31.8 g/dl (32.0-35.9); MEAN CELL VOLUME 82.3 fl (80-96); MEAN PLT VOLUME 8.6 fl (7.5-11.1); PLATELET COUNT 275 10^3/uL (134-434); RBC 4.86 M/mm3 (4.00-5.60); RDW 14.4 % (11.9-15.9); WHITE BLOOD COUNT 7.3 K/mm3 (4.0-10.0)
[2022-04-08 13:09] LABS: CALCIUM 8.9 mg/dL (8.5-10.1)
[2022-04-08 13:10] LABS: ALBUMIN 3.9 g/dl (3.4-5.0); BLOOD UREA NITROGEN 14.6 mg/dL (7-18); CREATININE 0.9 mg/dL (0.55-1.3)
[2022-04-08 13:11] LABS: TOT PROT 7.4 g/dl (6.4-8.2)
[2022-04-08 13:12] LABS: BILIRUBIN,TOTAL 0.3 mg/dL (0.2-1)
[2022-04-08 13:31] LABS: HIV INTERPRETATION NEGATIVE (NEGATIVE)
[2022-04-08] MEDS: THIAMINE HCL 100 MG TABLET (FP) PO SCH (22:42)
[2022-04-08] MEDS: SUVOREXANT 10 MG TABLET PO PRN (22:42)
[2022-04-09] MEDS: NICOTINE POLACRILEX 4 MG GUM BUC PRN ×8 (03:51→22:20)
[2022-04-09] MEDS: chlordiazePOXIDE HCL 25 MG CAPSULE PO SCH ×4 (05:16→22:16)
[2022-04-09] MEDS: GABAPENTIN 300 MG CAPSULE PO SCH ×3 (05:16→22:15)
[2022-04-09] MEDS: NICOTINE 10 MG CARTRIDGE (INHALER) IH PRN ×4 (05:19→19:49)
[2022-04-09] MEDS: ESCITALOPRAM OXALATE 20 MG TABLET PO SCH (11:02)
[2022-04-09] MEDS: PRENATAL VITAMINS W/ FOLIC ACID TABLET (FP) PO SCH (11:02)
[2022-04-09] MEDS: DOCUSATE SODIUM 100 MG CAPSULE (FP) PO SCH ×2 (11:05→22:21)
[2022-04-09] MEDS: METHOCARBAMOL 500 MG TABLET PO PRN ×2 (14:10→22:15)
[2022-04-09] MEDS: chlordiazePOXIDE HCL 25 MG CAPSULE PO PRN (14:11)
[2022-04-09 16:04] LABS: PH,URINE 5.5 (5.0-8.0); URINE APPEARANCE CLEAR; URINE BILIRUBIN NEGATIVE (NEGATIVE); URINE COLOR YELLOW; URINE GLUCOSE (UA) NEGATIVE (NEGATIVE); URINE KETONE NEGATIVE (NEGATIVE); URINE LEUK ESTERASE NEGATIVE (NEGATIVE); URINE NITRITE NEGATIVE (NEGATIVE); URINE PROTEIN NEGATIVE (NEGATIVE); URINE UROBILINOGEN 0.2 mg/dL (0.2-1.0)
[2022-04-09] MEDS: THIAMINE HCL 100 MG TABLET (FP) PO SCH (22:15)
[2022-04-09] MEDS: SUVOREXANT 10 MG TABLET PO PRN (22:21)
[2022-04-10] MEDS: NICOTINE 10 MG CARTRIDGE (INHALER) IH PRN ×5 (02:24→22:39)
[2022-04-10] MEDS: chlordiazePOXIDE HCL 10 MG CAPSULE PO PRN ×2 (02:24→12:09)
[2022-04-10] MEDS: NICOTINE POLACRILEX 4 MG GUM BUC PRN ×5 (05:09→22:40)
[2022-04-10] MEDS: GABAPENTIN 300 MG CAPSULE PO SCH ×3 (05:32→22:34)
[2022-04-10] MEDS: chlordiazePOXIDE HCL 10 MG CAPSULE PO SCH ×4 (05:32→22:35)
[2022-04-10] MEDS: DOCUSATE SODIUM 100 MG CAPSULE (FP) PO SCH ×2 (10:11→22:34)
[2022-04-10] MEDS: ESCITALOPRAM OXALATE 20 MG TABLET PO SCH (10:11)
[2022-04-10] MEDS: PRENATAL VITAMINS W/ FOLIC ACID TABLET (FP) PO SCH (10:16)
[2022-04-10] MEDS: METHOCARBAMOL 500 MG TABLET PO PRN ×2 (14:17→22:37)
[2022-04-10] MEDS: THIAMINE HCL 100 MG TABLET (FP) PO SCH (22:34)
[2022-04-10] MEDS: SUVOREXANT 10 MG TABLET PO PRN (22:40)
[2022-04-11] MEDS: NICOTINE POLACRILEX 4 MG GUM BUC PRN ×8 (02:48→22:49)
[2022-04-11] MEDS: chlordiazePOXIDE HCL 10 MG CAPSULE PO SCH ×2 (05:57→18:01)
[2022-04-11] MEDS: GABAPENTIN 300 MG CAPSULE PO SCH ×3 (06:01→22:48)
[2022-04-11] MEDS: NICOTINE 10 MG CARTRIDGE (INHALER) IH PRN ×5 (06:24→22:49)
[2022-04-11] MEDS: ESCITALOPRAM OXALATE 20 MG TABLET PO SCH (10:07)
[2022-04-11] MEDS: METHOCARBAMOL 500 MG TABLET PO PRN ×2 (10:07→18:01)
[2022-04-11] MEDS: DOCUSATE SODIUM 100 MG CAPSULE (FP) PO SCH ×2 (10:07→22:47)
[2022-04-11] MEDS: PRENATAL VITAMINS W/ FOLIC ACID TABLET (FP) PO SCH (10:09)
[2022-04-11] MEDS: SUVOREXANT 10 MG TABLET PO PRN (22:47)
[2022-04-11] MEDS: THIAMINE HCL 100 MG TABLET (FP) PO SCH (22:47)
[2022-04-12] MEDS ORDERED: chlordiazePOXIDE HCL 10 MG CAPSULE PO ONE (05:00)
[2022-04-12] MEDS: GABAPENTIN 300 MG CAPSULE PO SCH (05:47)
[2022-04-12] MEDS: NICOTINE POLACRILEX 4 MG GUM BUC PRN ×3 (05:53→10:19)
[2022-04-12] MEDS: NICOTINE 10 MG CARTRIDGE (INHALER) IH PRN ×2 (06:44→10:19)
[2022-04-12] MEDS: METHOCARBAMOL 500 MG TABLET PO PRN (06:44)
[2022-04-12 09:49] VITALS: BP 108/63; PULSE 75; RESP 18; TEMP 97.3
[2022-04-12] MEDS: DOCUSATE SODIUM 100 MG CAPSULE (FP) PO SCH (10:17)
[2022-04-12] MEDS: PRENATAL VITAMINS W/ FOLIC ACID TABLET (FP) PO SCH (10:17)
[2022-04-12] MEDS: ESCITALOPRAM OXALATE 20 MG TABLET PO SCH (10:17)
== END 2022-04-12 12:20 | disposition home or self-care (01) | DRG 773 ==
LOC: YASAS 10:02 → Y6N 12:38
PROVIDERS: ADMIT Allergy & Immunology; ATTEND Surgery
PROC: HZ2ZZZZ Detoxification Services for Substance Abuse Treatment (ICD-10-PCS; principal; 2022-04-07)
DX: F10.230 Alcohol dependence with withdrawal, uncomplicated (principal); F13.230 Sedative, hypnotic or anxiolytic dependence with withdrawal, uncomplicated; F11.20 Opioid dependence, uncomplicated; F14.20 Cocaine dependence, uncomplicated; F12.20 Cannabis dependence, uncomplicated; F17.210 Nicotine dependence, cigarettes, uncomplicated; F33.1 Major depressive disorder, recurrent, moderate; F19.282 Other psychoactive substance dependence with psychoactive substance-induced sleep disorder; K59.00 Constipation, unspecified; Z86.16 Personal history of COVID-19
CPT/HCPCS: 36415; 80053; 81003; 85027; 86780; 87389; C9803-CS; U0003; U0005

== ENCOUNTER 2022-07-09 12:01 | Inpatient (IN) | payer OTHER ==
[2022-07-09 12:52] VITALS: BMI 25.4
[2022-07-09] MEDS ORDERED: LOPERAMIDE HCL 2 MG CAPSULE PO PRN (13:30)
[2022-07-09] MEDS ORDERED: BISMUTH SUBSALICYLATE 524 MG/30 ML PO PRN (13:30)
[2022-07-09] MEDS ORDERED: POLYETHYLENE GLYCOL (HEALTHYLAX) 3350 17 GM PACKET PO PRN (13:30)
[2022-07-09] MEDS ORDERED: ONDANSETRON *ODT* 4 MG TABLET SL PRN (13:30)
[2022-07-09] MEDS ORDERED: guaiFENesin 600 MG TABLET.ER (FP) PO PRN (13:30)
[2022-07-09] MEDS ORDERED: NALOXONE HCL (KLOXXADO) 8 MG SPRAY NS PRN (13:30)
[2022-07-09] MEDS ORDERED: MAGNESIUM HYDROX 2400MG/30ML ORAL SUSPENSION 30 ML CUP PO PRN (13:30)
[2022-07-09] MEDS ORDERED: BENZONATATE 200 MG CAPSULE PO PRN (13:30)
[2022-07-09] MEDS ORDERED: NALOXONE HCL 0.4 MG/ML VIAL IM PRN (13:30)
[2022-07-09] MEDS ORDERED: BENZOCAINE/MENTHOL (CHLORASEPTIC ) LOZENGE MM PRN (13:30)
[2022-07-09] MEDS ORDERED: DICYCLOMINE HCL 10 MG CAPSULE PO PRN (13:30)
[2022-07-09] MEDS ORDERED: IBUPROFEN 600 MG TABLET (FP) PO PRN (13:30)
[2022-07-09] MEDS ORDERED: MAG HYDROX/AL HYDROX/SIMETH 30 ML UNIT-DOSE CUP PO PRN (13:30)
[2022-07-09] MEDS ORDERED: ACETAMINOPHEN 325 MG TABLET (FP) PO PRN (13:30)
[2022-07-09] MEDS ORDERED: IBUPROFEN 400 MG TABLET (FP) PO PRN (13:30)
[2022-07-09] MEDS ORDERED: chlordiazePOXIDE HCL 25 MG CAPSULE PO ONE (13:45)
[2022-07-09] MEDS ORDERED: chlordiazePOXIDE HCL 25 MG CAPSULE ONE (14:02)
[2022-07-09] MEDS ORDERED: PRENATAL VITAMINS W/ FOLIC ACID TABLET (FP) PO ONE (14:03)
[2022-07-09] MEDS: NICOTINE POLACRILEX 4 MG GUM BUC PRN ×4 (15:05→22:58)
[2022-07-09] MEDS: PRENATAL VITAMINS W/ FOLIC ACID TABLET (FP) PO SCH (15:07)
[2022-07-09] MEDS: chlordiazePOXIDE HCL 25 MG CAPSULE PO SCH ×2 (17:45→22:53)
[2022-07-09] MEDS: NICOTINE 10 MG CARTRIDGE (INHALER) IH PRN ×2 (17:47→22:58)
[2022-07-09] MEDS: chlordiazePOXIDE HCL 25 MG CAPSULE PO PRN (20:17)
[2022-07-09] MEDS ORDERED: GABAPENTIN 300 MG CAPSULE PO SCH (22:00)
[2022-07-09] MEDS: GABAPENTIN 100 MG CAPSULE PO SCH (22:53)
[2022-07-09] MEDS: THIAMINE HCL 100 MG TABLET (FP) PO SCH (22:54)
[2022-07-09] MEDS: MELATONIN 5 MG TABLETS PO SCH (22:55)
[2022-07-10] MEDS: chlordiazePOXIDE HCL 25 MG CAPSULE PO PRN ×2 (03:54→14:50)
[2022-07-10] MEDS: NICOTINE POLACRILEX 4 MG GUM BUC PRN ×6 (03:55→20:50)
[2022-07-10] MEDS: GABAPENTIN 100 MG CAPSULE PO SCH ×3 (06:07→22:40)
[2022-07-10] MEDS: chlordiazePOXIDE HCL 25 MG CAPSULE PO SCH ×4 (06:07→22:41)
[2022-07-10] MEDS ORDERED: methaDONE HCL 10 MG TABLET PO SCH ×2 (09:45)
[2022-07-10 10:33] LABS: CALCIUM 9.5 mg/dL (8.5-10.1); HEMATOCRIT 37.1 % (35.4-49); HEMOGLOBIN 12.6 GM/dL (11.7-16.9); MCHC 33.9 g/dl (32.0-35.9); MEAN CELL VOLUME 79.6 fl (80-96); MEAN PLT VOLUME 9.4 fl (7.5-11.1); PLATELET COUNT 235 10^3/uL (134-434); RBC 4.67 M/mm3 (4.00-5.60); RDW 13.6 % (11.9-15.9); WHITE BLOOD COUNT 4.9 K/mm3 (4.0-10.0)
[2022-07-10 10:34] LABS: ALBUMIN 3.9 g/dl (3.4-5.0); BLOOD UREA NITROGEN 11.8 mg/dL (7-18)
[2022-07-10 10:37] LABS: CREATININE 0.7 mg/dL (0.55-1.3)
[2022-07-10 10:38] LABS: TOT PROT 7.3 g/dl (6.4-8.2)
[2022-07-10 10:39] LABS: BILIRUBIN,TOTAL 0.2 mg/dL (0.2-1)
[2022-07-10] MEDS: PRENATAL VITAMINS W/ FOLIC ACID TABLET (FP) PO SCH (10:59)
[2022-07-10] MEDS: ESCITALOPRAM OXALATE 20 MG TABLET PO SCH (10:59)
[2022-07-10 12:08] LABS: HIV INTERPRETATION NEGATIVE (NEGATIVE)
[2022-07-10] MEDS: METHOCARBAMOL 500 MG TABLET PO PRN (17:48)
[2022-07-10] MEDS: MELATONIN 5 MG TABLETS PO SCH (22:39)
[2022-07-10] MEDS: hydrOXYzine PAMOATE 25 MG CAPSULE (FP) PO PRN (22:41)
[2022-07-10] MEDS: THIAMINE HCL 100 MG TABLET (FP) PO SCH (22:41)
[2022-07-11] MEDS: METHOCARBAMOL 500 MG TABLET PO PRN ×3 (04:19→22:36)
[2022-07-11] MEDS: NICOTINE POLACRILEX 4 MG GUM BUC PRN ×7 (04:21→20:16)
[2022-07-11] MEDS: chlordiazePOXIDE HCL 25 MG CAPSULE PO SCH ×4 (06:09→22:38)
[2022-07-11] MEDS: GABAPENTIN 100 MG CAPSULE PO SCH ×3 (06:09→22:37)
[2022-07-11] MEDS: ESCITALOPRAM OXALATE 20 MG TABLET PO SCH (10:29)
[2022-07-11] MEDS: PRENATAL VITAMINS W/ FOLIC ACID TABLET (FP) PO SCH (10:29)
[2022-07-11] MEDS: chlordiazePOXIDE HCL 25 MG CAPSULE PO PRN ×2 (12:48→20:16)
[2022-07-11] MEDS: hydrOXYzine PAMOATE 25 MG CAPSULE (FP) PO PRN ×2 (15:10→22:36)
[2022-07-11] MEDS: THIAMINE HCL 100 MG TABLET (FP) PO SCH (22:36)
[2022-07-11] MEDS: MELATONIN 5 MG TABLETS PO SCH (22:36)
[2022-07-12] MEDS: chlordiazePOXIDE HCL 10 MG CAPSULE PO PRN ×2 (03:06→14:00)
[2022-07-12] MEDS: NICOTINE POLACRILEX 4 MG GUM BUC PRN ×7 (03:08→22:24)
[2022-07-12] MEDS: GABAPENTIN 100 MG CAPSULE PO SCH ×3 (06:27→22:19)
[2022-07-12] MEDS: chlordiazePOXIDE HCL 10 MG CAPSULE PO SCH ×4 (06:28→22:19)
[2022-07-12] MEDS: METHOCARBAMOL 500 MG TABLET PO PRN (07:10)
[2022-07-12] MEDS: hydrOXYzine PAMOATE 25 MG CAPSULE (FP) PO PRN (09:02)
[2022-07-12] MEDS: PRENATAL VITAMINS W/ FOLIC ACID TABLET (FP) PO SCH (10:22)
[2022-07-12] MEDS: ESCITALOPRAM OXALATE 20 MG TABLET PO SCH (10:23)
[2022-07-12] MEDS: THIAMINE HCL 100 MG TABLET (FP) PO SCH (22:19)
[2022-07-12] MEDS: SUVOREXANT 10 MG TABLET PO PRN (22:22)
[2022-07-13] MEDS: GABAPENTIN 100 MG CAPSULE PO SCH ×3 (05:23→21:57)
[2022-07-13] MEDS: chlordiazePOXIDE HCL 10 MG CAPSULE PO SCH ×2 (05:24→17:22)
[2022-07-13] MEDS: NICOTINE POLACRILEX 4 MG GUM BUC PRN ×5 (05:31→19:39)
[2022-07-13] MEDS: METHOCARBAMOL 500 MG TABLET PO PRN ×2 (06:53→15:28)
[2022-07-13 08:43] VITALS: RESP 18
[2022-07-13] MEDS: ESCITALOPRAM OXALATE 20 MG TABLET PO SCH (10:58)
[2022-07-13] MEDS: PRENATAL VITAMINS W/ FOLIC ACID TABLET (FP) PO SCH (10:58)
[2022-07-13] MEDS: hydrOXYzine PAMOATE 25 MG CAPSULE (FP) PO PRN (12:27)
[2022-07-13] MEDS: THIAMINE HCL 100 MG TABLET (FP) PO SCH (21:57)
[2022-07-13] MEDS: SUVOREXANT 10 MG TABLET PO PRN (21:57)
[2022-07-14] MEDS: hydrOXYzine PAMOATE 25 MG CAPSULE (FP) PO PRN (00:38)
[2022-07-14] MEDS: METHOCARBAMOL 500 MG TABLET PO PRN (00:38)
[2022-07-14] MEDS: NICOTINE POLACRILEX 4 MG GUM BUC PRN ×3 (00:40→09:21)
[2022-07-14] MEDS ORDERED: chlordiazePOXIDE HCL 10 MG CAPSULE PO ONE (05:00)
[2022-07-14] MEDS: GABAPENTIN 100 MG CAPSULE PO SCH (05:24)
[2022-07-14 06:32] VITALS: PULSE 78
[2022-07-14 09:21] VITALS: BP 114/62; TEMP 98.6
[2022-07-14] MEDS: ESCITALOPRAM OXALATE 20 MG TABLET PO SCH (10:43)
[2022-07-14] MEDS: PRENATAL VITAMINS W/ FOLIC ACID TABLET (FP) PO SCH (10:43)
== END 2022-07-14 10:22 | disposition home or self-care (01) | DRG 773 ==
LOC: YASAS 12:01 → Y3N 13:42
PROVIDERS: ADMIT Allergy & Immunology; ATTEND Surgery
PROC: HZ2ZZZZ Detoxification Services for Substance Abuse Treatment (ICD-10-PCS; principal; 2022-07-09)
DX: F10.230 Alcohol dependence with withdrawal, uncomplicated (principal); F11.20 Opioid dependence, uncomplicated; F14.20 Cocaine dependence, uncomplicated; F17.210 Nicotine dependence, cigarettes, uncomplicated; F33.1 Major depressive disorder, recurrent, moderate; G47.00 Insomnia, unspecified
CPT/HCPCS: 36415; 80053; 85027; 86780; 87389; C9803-CS; U0003; U0005

== ENCOUNTER 2022-08-02 14:24 | Inpatient (IN) | payer OTHER ==
[2022-08-02 16:50] VITALS: BMI 24.3
[2022-08-02] MEDS ORDERED: NALOXONE HCL 0.4 MG/ML VIAL IM PRN (18:23)
[2022-08-02] MEDS ORDERED: NALOXONE HCL (KLOXXADO) 8 MG SPRAY NS PRN (18:23)
[2022-08-02] MEDS ORDERED: guaiFENesin 600 MG TABLET.ER (FP) PO PRN (18:23)
[2022-08-02] MEDS ORDERED: MAG HYDROX/AL HYDROX/SIMETH 30 ML UNIT-DOSE CUP PO PRN (18:23)
[2022-08-02] MEDS ORDERED: ACETAMINOPHEN 325 MG TABLET (FP) PO PRN (18:23)
[2022-08-02] MEDS ORDERED: LOPERAMIDE HCL 2 MG CAPSULE PO PRN (18:23)
[2022-08-02] MEDS ORDERED: IBUPROFEN 400 MG TABLET (FP) PO PRN (18:23)
[2022-08-02] MEDS ORDERED: BISMUTH SUBSALICYLATE 524 MG/30 ML PO PRN (18:23)
[2022-08-02] MEDS ORDERED: P-EPHED 60MG/TRIPROLIDI 2.5MG TABLET PO PRN (18:23)
[2022-08-02] MEDS ORDERED: BENZONATATE 200 MG CAPSULE PO PRN (18:23)
[2022-08-02] MEDS ORDERED: IBUPROFEN 600 MG TABLET (FP) PO PRN (18:23)
[2022-08-02] MEDS ORDERED: ONDANSETRON *ODT* 4 MG TABLET SL PRN (18:23)
[2022-08-02] MEDS ORDERED: MAGNESIUM HYDROX 2400MG/30ML ORAL SUSPENSION 30 ML CUP PO PRN (18:23)
[2022-08-02] MEDS ORDERED: POLYETHYLENE GLYCOL (HEALTHYLAX) 3350 17 GM PACKET PO PRN (18:23)
[2022-08-02] MEDS ORDERED: BENZOCAINE/MENTHOL (CHLORASEPTIC ) LOZENGE MM PRN (18:23)
[2022-08-02] MEDS ORDERED: DICYCLOMINE HCL 10 MG CAPSULE PO PRN (18:23)
[2022-08-02] MEDS ORDERED: diazePAM 5 MG TABLET PO ONE (18:25)
[2022-08-02] MEDS ORDERED: diazePAM 5 MG TABLET ONE (19:34)
[2022-08-02] MEDS ORDERED: NICOTINE POLACRILEX 4 MG GUM BUC ONE (19:50)
[2022-08-02] MEDS: NICOTINE POLACRILEX 4 MG GUM BUC PRN ×2 (19:52→22:17)
[2022-08-02] MEDS: MELATONIN 5 MG TABLETS PO SCH (22:17)
[2022-08-02] MEDS: THIAMINE HCL 100 MG TABLET (FP) PO SCH (22:18)
[2022-08-02] MEDS: hydrOXYzine PAMOATE 25 MG CAPSULE (FP) PO PRN (22:18)
[2022-08-02] MEDS: diazePAM 5 MG TABLET PO SCH (22:19)
[2022-08-03] MEDS: NICOTINE POLACRILEX 4 MG GUM BUC PRN ×7 (04:26→20:35)
[2022-08-03] MEDS: diazePAM 5 MG TABLET PO SCH ×4 (04:26→22:51)
[2022-08-03] MEDS ORDERED: methaDONE HCL 10 MG TABLET PO SCH (08:07)
[2022-08-03] MEDS: diazePAM 5 MG TABLET PO PRN ×3 (08:33→20:33)
[2022-08-03] MEDS: NICOTINE 14 MG/24 HOURS TOPICAL PATCH TD SCH (10:45)
[2022-08-03] MEDS: PRENATAL VITAMINS W/ FOLIC ACID TABLET (FP) PO SCH (10:45)
[2022-08-03] MEDS: hydrOXYzine PAMOATE 25 MG CAPSULE (FP) PO PRN (12:40)
[2022-08-03] MEDS: METHOCARBAMOL 500 MG TABLET PO PRN ×2 (13:18→22:50)
[2022-08-03] MEDS: GABAPENTIN 300 MG CAPSULE PO SCH ×2 (13:19→22:50)
[2022-08-03] MEDS: MELATONIN 5 MG TABLETS PO SCH (22:49)
[2022-08-03] MEDS: traZODone HCL 50 MG TABLET (FP) PO SCH (22:50)
[2022-08-03] MEDS: THIAMINE HCL 100 MG TABLET (FP) PO SCH (22:50)
[2022-08-04] MEDS: GABAPENTIN 300 MG CAPSULE PO SCH ×3 (05:49→22:24)
[2022-08-04] MEDS: diazePAM 5 MG TABLET PO SCH ×3 (05:52→22:24)
[2022-08-04] MEDS: NICOTINE POLACRILEX 4 MG GUM BUC PRN ×6 (05:54→22:46)
[2022-08-04] MEDS: PRENATAL VITAMINS W/ FOLIC ACID TABLET (FP) PO SCH (09:20)
[2022-08-04] MEDS: NICOTINE 14 MG/24 HOURS TOPICAL PATCH TD SCH (09:20)
[2022-08-04] MEDS: ESCITALOPRAM OXALATE 20 MG TABLET PO SCH (09:20)
[2022-08-04] MEDS: diazePAM 5 MG TABLET PO PRN ×2 (09:24→17:46)
[2022-08-04] MEDS: METHOCARBAMOL 500 MG TABLET PO PRN ×2 (14:52→22:24)
[2022-08-04] MEDS: hydrOXYzine PAMOATE 25 MG CAPSULE (FP) PO PRN (20:45)
[2022-08-04] MEDS: MELATONIN 5 MG TABLETS PO SCH (22:24)
[2022-08-04] MEDS: traZODone HCL 50 MG TABLET (FP) PO SCH (22:24)
[2022-08-04] MEDS: THIAMINE HCL 100 MG TABLET (FP) PO SCH (22:25)
[2022-08-05] MEDS: diazePAM 5 MG TABLET PO PRN ×2 (02:28→12:04)
[2022-08-05] MEDS: NICOTINE POLACRILEX 4 MG GUM BUC PRN ×7 (02:29→20:19)
[2022-08-05] MEDS: diazePAM 5 MG TABLET PO SCH ×2 (05:19→17:17)
[2022-08-05] MEDS: GABAPENTIN 300 MG CAPSULE PO SCH ×4 (06:22→22:13)
[2022-08-05] MEDS: ESCITALOPRAM OXALATE 20 MG TABLET PO SCH (10:21)
[2022-08-05] MEDS: PRENATAL VITAMINS W/ FOLIC ACID TABLET (FP) PO SCH (10:21)
[2022-08-05] MEDS: NICOTINE 14 MG/24 HOURS TOPICAL PATCH TD SCH (10:22)
[2022-08-05] MEDS: METHOCARBAMOL 500 MG TABLET PO PRN ×2 (10:24→17:18)
[2022-08-05] MEDS: hydrOXYzine PAMOATE 25 MG CAPSULE (FP) PO PRN (15:14)
[2022-08-05] MEDS: MELATONIN 5 MG TABLETS PO SCH (22:13)
[2022-08-05] MEDS: THIAMINE HCL 100 MG TABLET (FP) PO SCH (22:13)
[2022-08-05] MEDS: traZODone HCL 50 MG TABLET (FP) PO SCH (22:13)
[2022-08-06] MEDS ORDERED: diazePAM 5 MG TABLET PO ONE (06:00)
[2022-08-06] MEDS: GABAPENTIN 300 MG CAPSULE PO SCH (06:05)
[2022-08-06] MEDS: NICOTINE POLACRILEX 4 MG GUM BUC PRN ×2 (06:09→09:47)
[2022-08-06 09:12] VITALS: BP 110/59; PULSE 67; RESP 20; TEMP 98.2
[2022-08-06] MEDS: ESCITALOPRAM OXALATE 20 MG TABLET PO SCH (09:46)
[2022-08-06] MEDS: NICOTINE 14 MG/24 HOURS TOPICAL PATCH TD SCH (09:46)
[2022-08-06] MEDS: PRENATAL VITAMINS W/ FOLIC ACID TABLET (FP) PO SCH (09:46)
== END 2022-08-06 11:20 | disposition other institution (70) | DRG 773 ==
LOC: YASAS 14:24 → Y3N 20:31
PROVIDERS: ADMIT Allergy & Immunology; ATTEND Surgery
PROC: HZ2ZZZZ Detoxification Services for Substance Abuse Treatment (ICD-10-PCS; principal; 2022-08-02)
DX: F10.230 Alcohol dependence with withdrawal, uncomplicated (principal); F11.20 Opioid dependence, uncomplicated; F13.20 Sedative, hypnotic or anxiolytic dependence, uncomplicated; F14.20 Cocaine dependence, uncomplicated; F17.210 Nicotine dependence, cigarettes, uncomplicated; F32.A Depression, unspecified; G47.00 Insomnia, unspecified
CPT/HCPCS: C9803-CS; U0003; U0005

== ENCOUNTER 2022-08-06 11:28 | Inpatient (IN) | payer OTHER ==
[2022-08-06] MEDS: NICOTINE POLACRILEX 4 MG GUM BUC PRN ×5 (12:00→21:29)
[2022-08-06] MEDS ORDERED: NALOXONE HCL (KLOXXADO) 8 MG SPRAY NS PRN (12:19)
[2022-08-06] MEDS ORDERED: BENZONATATE 200 MG CAPSULE PO PRN (12:19)
[2022-08-06] MEDS ORDERED: IBUPROFEN 400 MG TABLET (FP) PO PRN (12:19)
[2022-08-06] MEDS ORDERED: AMMONIUM LACTATE 12% LOTION 225 GM BOTTLE TP PRN (12:19)
[2022-08-06] MEDS ORDERED: BENZOCAINE/MENTHOL (CHLORASEPTIC ) LOZENGE MM PRN (12:19)
[2022-08-06] MEDS ORDERED: guaiFENesin 600 MG TABLET.ER (FP) PO PRN (12:19)
[2022-08-06] MEDS ORDERED: MAG HYDROX/AL HYDROX/SIMETH 30 ML UNIT-DOSE CUP PO PRN (12:19)
[2022-08-06] MEDS ORDERED: POLYETHYLENE GLYCOL (HEALTHYLAX) 3350 17 GM PACKET PO PRN (12:19)
[2022-08-06] MEDS ORDERED: LOPERAMIDE HCL 2 MG CAPSULE PO PRN (12:19)
[2022-08-06] MEDS ORDERED: COLLOIDAL OATMEAL 1 BAR EACH TP PRN (12:19)
[2022-08-06] MEDS ORDERED: NALOXONE HCL 0.4 MG/ML VIAL IVPUSH PRN (12:19)
[2022-08-06] MEDS ORDERED: MAGNESIUM HYDROX 2400MG/30ML ORAL SUSPENSION 30 ML CUP PO PRN (12:19)
[2022-08-06] MEDS: GABAPENTIN 300 MG CAPSULE PO SCH ×2 (14:30→21:28)
[2022-08-06] MEDS: THIAMINE HCL 100 MG TABLET (FP) PO SCH (21:27)
[2022-08-06] MEDS: MELATONIN 5 MG TABLETS PO SCH (21:27)
[2022-08-06] MEDS: traZODone HCL 50 MG TABLET (FP) PO SCH (21:28)
[2022-08-07] MEDS: GABAPENTIN 300 MG CAPSULE PO SCH ×3 (06:18→21:22)
[2022-08-07] MEDS: NICOTINE POLACRILEX 4 MG GUM BUC PRN ×8 (06:21→21:54)
[2022-08-07] MEDS ORDERED: ESCITALOPRAM OXALATE 10 MG TABLET ONE (08:54)
[2022-08-07] MEDS ORDERED: methaDONE HCL 40 MG DISPERSABLE TABLET PO SCH (10:00)
[2022-08-07] MEDS: ESCITALOPRAM OXALATE 20 MG TABLET PO SCH (10:11)
[2022-08-07] MEDS: PRENATAL VITAMINS W/ FOLIC ACID TABLET (FP) PO SCH (10:11)
[2022-08-07] MEDS: NICOTINE 21 MG/24 HOURS TOPICAL PATCH TD PRN (10:12)
[2022-08-07] MEDS: BACLOFEN 10 MG TABLET (FP) PO PRN (17:45)
[2022-08-07] MEDS: traZODone HCL 50 MG TABLET (FP) PO SCH (21:21)
[2022-08-07] MEDS: THIAMINE HCL 100 MG TABLET (FP) PO SCH (21:22)
[2022-08-07] MEDS: hydrOXYzine PAMOATE 25 MG CAPSULE (FP) PO PRN (21:22)
[2022-08-07] MEDS: MELATONIN 5 MG TABLETS PO SCH (21:22)
[2022-08-08] MEDS: GABAPENTIN 300 MG CAPSULE PO SCH ×3 (06:20→21:01)
[2022-08-08] MEDS: BACLOFEN 10 MG TABLET (FP) PO PRN ×3 (06:23→21:02)
[2022-08-08] MEDS ORDERED: ESCITALOPRAM OXALATE 10 MG TABLET ONE (08:53)
[2022-08-08] MEDS: NICOTINE 21 MG/24 HOURS TOPICAL PATCH TD PRN (09:12)
[2022-08-08] MEDS: hydrOXYzine PAMOATE 25 MG CAPSULE (FP) PO PRN ×2 (09:12→17:44)
[2022-08-08] MEDS: NICOTINE POLACRILEX 4 MG GUM BUC PRN ×5 (09:13→21:03)
[2022-08-08] MEDS: PRENATAL VITAMINS W/ FOLIC ACID TABLET (FP) PO SCH (09:13)
[2022-08-08] MEDS: ESCITALOPRAM OXALATE 20 MG TABLET PO SCH (09:13)
[2022-08-08] MEDS: traZODone HCL 50 MG TABLET (FP) PO SCH (21:01)
[2022-08-08] MEDS: MELATONIN 5 MG TABLETS PO SCH (21:02)
[2022-08-08] MEDS: THIAMINE HCL 100 MG TABLET (FP) PO SCH (21:02)
[2022-08-09] MEDS: GABAPENTIN 300 MG CAPSULE PO SCH ×3 (06:24→21:24)
[2022-08-09] MEDS: hydrOXYzine PAMOATE 25 MG CAPSULE (FP) PO PRN ×2 (06:25→14:14)
[2022-08-09] MEDS: NICOTINE POLACRILEX 4 MG GUM BUC PRN ×7 (06:27→20:04)
[2022-08-09] MEDS ORDERED: ESCITALOPRAM OXALATE 10 MG TABLET ONE (08:36)
[2022-08-09] MEDS: PRENATAL VITAMINS W/ FOLIC ACID TABLET (FP) PO SCH (10:22)
[2022-08-09] MEDS: ESCITALOPRAM OXALATE 20 MG TABLET PO SCH (10:22)
[2022-08-09] MEDS: BACLOFEN 10 MG TABLET (FP) PO PRN ×2 (10:23→18:11)
[2022-08-09] MEDS: NICOTINE 21 MG/24 HOURS TOPICAL PATCH TD PRN (10:24)
[2022-08-09] MEDS: THIAMINE HCL 100 MG TABLET (FP) PO SCH (21:24)
[2022-08-09] MEDS: traZODone HCL 50 MG TABLET (FP) PO SCH (21:24)
[2022-08-09] MEDS: MELATONIN 5 MG TABLETS PO SCH (21:24)
[2022-08-10] MEDS: ACETAMINOPHEN 325 MG TABLET (FP) PO PRN (02:41)
[2022-08-10] MEDS: NICOTINE POLACRILEX 4 MG GUM BUC PRN ×7 (02:42→19:11)
[2022-08-10] MEDS: GABAPENTIN 300 MG CAPSULE PO SCH ×3 (06:27→21:06)
[2022-08-10] MEDS: hydrOXYzine PAMOATE 25 MG CAPSULE (FP) PO PRN (06:28)
[2022-08-10] MEDS ORDERED: ESCITALOPRAM OXALATE 10 MG TABLET ONE (10:06)
[2022-08-10] MEDS: ESCITALOPRAM OXALATE 20 MG TABLET PO SCH (10:42)
[2022-08-10] MEDS: PRENATAL VITAMINS W/ FOLIC ACID TABLET (FP) PO SCH (10:43)
[2022-08-10] MEDS: BACLOFEN 10 MG TABLET (FP) PO PRN ×2 (10:43→21:06)
[2022-08-10] MEDS: NICOTINE 21 MG/24 HOURS TOPICAL PATCH TD PRN (10:46)
[2022-08-10] MEDS: NICOTINE 10 MG CARTRIDGE (INHALER) IH PRN ×2 (13:07→21:07)
[2022-08-10] MEDS: MELATONIN 5 MG TABLETS PO SCH (21:06)
[2022-08-10] MEDS: THIAMINE HCL 100 MG TABLET (FP) PO SCH (21:06)
[2022-08-10] MEDS: traZODone HCL 50 MG TABLET (FP) PO SCH (21:06)
[2022-08-11] MEDS: GABAPENTIN 300 MG CAPSULE PO SCH ×3 (06:18→21:03)
[2022-08-11] MEDS: BACLOFEN 10 MG TABLET (FP) PO PRN ×2 (06:19→15:55)
[2022-08-11] MEDS: NICOTINE POLACRILEX 4 MG GUM BUC PRN ×7 (06:21→21:04)
[2022-08-11] MEDS: NICOTINE 10 MG CARTRIDGE (INHALER) IH PRN ×2 (08:26→19:03)
[2022-08-11] MEDS ORDERED: ESCITALOPRAM OXALATE 10 MG TABLET ONE (08:47)
[2022-08-11] MEDS: PRENATAL VITAMINS W/ FOLIC ACID TABLET (FP) PO SCH (10:09)
[2022-08-11] MEDS: ESCITALOPRAM OXALATE 20 MG TABLET PO SCH (10:10)
[2022-08-11] MEDS: NICOTINE 21 MG/24 HOURS TOPICAL PATCH TD PRN (10:11)
[2022-08-11] MEDS: hydrOXYzine PAMOATE 25 MG CAPSULE (FP) PO PRN ×2 (10:11→21:03)
[2022-08-11] MEDS: IBUPROFEN 600 MG TABLET (FP) PO PRN (10:36)
[2022-08-11] MEDS: ACETAMINOPHEN 325 MG TABLET (FP) PO PRN (15:54)
[2022-08-11] MEDS: MELATONIN 5 MG TABLETS PO SCH (21:03)
[2022-08-11] MEDS: traZODone HCL 50 MG TABLET (FP) PO SCH (21:03)
[2022-08-11] MEDS: THIAMINE HCL 100 MG TABLET (FP) PO SCH (21:03)
[2022-08-12] MEDS: GABAPENTIN 300 MG CAPSULE PO SCH ×3 (06:36→21:10)
[2022-08-12] MEDS: NICOTINE POLACRILEX 4 MG GUM BUC PRN ×7 (06:37→21:10)
[2022-08-12] MEDS: NICOTINE 10 MG CARTRIDGE (INHALER) IH PRN ×2 (06:48→16:25)
[2022-08-12] MEDS ORDERED: ESCITALOPRAM OXALATE 10 MG TABLET ONE (09:37)
[2022-08-12] MEDS: hydrOXYzine PAMOATE 25 MG CAPSULE (FP) PO PRN ×2 (09:56→18:38)
[2022-08-12] MEDS: BACLOFEN 10 MG TABLET (FP) PO PRN (09:56)
[2022-08-12] MEDS: ESCITALOPRAM OXALATE 20 MG TABLET PO SCH (09:57)
[2022-08-12] MEDS: PRENATAL VITAMINS W/ FOLIC ACID TABLET (FP) PO SCH (09:58)
[2022-08-12] MEDS: NICOTINE 21 MG/24 HOURS TOPICAL PATCH TD PRN (09:58)
[2022-08-12] MEDS: ACETAMINOPHEN 325 MG TABLET (FP) PO PRN (18:38)
[2022-08-12] MEDS: MELATONIN 5 MG TABLETS PO SCH (21:10)
[2022-08-12] MEDS: THIAMINE HCL 100 MG TABLET (FP) PO SCH (21:10)
[2022-08-12] MEDS: traZODone HCL 50 MG TABLET (FP) PO SCH (21:10)
[2022-08-13] MEDS: GABAPENTIN 300 MG CAPSULE PO SCH ×3 (06:14→21:21)
[2022-08-13] MEDS: NICOTINE POLACRILEX 4 MG GUM BUC PRN ×5 (06:15→18:51)
[2022-08-13] MEDS: hydrOXYzine PAMOATE 25 MG CAPSULE (FP) PO PRN ×3 (06:15→21:21)
[2022-08-13] MEDS: NICOTINE 10 MG CARTRIDGE (INHALER) IH PRN ×2 (08:27→13:28)
[2022-08-13] MEDS ORDERED: ESCITALOPRAM OXALATE 10 MG TABLET ONE (08:48)
[2022-08-13] MEDS: NICOTINE 21 MG/24 HOURS TOPICAL PATCH TD PRN (09:27)
[2022-08-13] MEDS: PRENATAL VITAMINS W/ FOLIC ACID TABLET (FP) PO SCH (09:27)
[2022-08-13] MEDS: ESCITALOPRAM OXALATE 20 MG TABLET PO SCH (09:27)
[2022-08-13] MEDS: IBUPROFEN 600 MG TABLET (FP) PO PRN (13:27)
[2022-08-13] MEDS: LACTULOSE 20 GM/30 ML UDC (FOR ORAL USE ONLY) PO SCH (21:21)
[2022-08-13] MEDS: traZODone HCL 50 MG TABLET (FP) PO SCH (21:21)
[2022-08-13] MEDS: THIAMINE HCL 100 MG TABLET (FP) PO SCH (21:22)
[2022-08-13] MEDS: MELATONIN 5 MG TABLETS PO SCH (21:22)
[2022-08-14] MEDS: GABAPENTIN 300 MG CAPSULE PO SCH ×3 (06:18→21:23)
[2022-08-14] MEDS: hydrOXYzine PAMOATE 25 MG CAPSULE (FP) PO PRN ×3 (06:18→21:23)
[2022-08-14] MEDS: NICOTINE 10 MG CARTRIDGE (INHALER) IH PRN ×2 (06:18→21:24)
[2022-08-14] MEDS: NICOTINE POLACRILEX 4 MG GUM BUC PRN ×6 (06:19→21:24)
[2022-08-14] MEDS ORDERED: ESCITALOPRAM OXALATE 10 MG TABLET ONE (08:55)
[2022-08-14] MEDS: PRENATAL VITAMINS W/ FOLIC ACID TABLET (FP) PO SCH (09:47)
[2022-08-14] MEDS: ESCITALOPRAM OXALATE 20 MG TABLET PO SCH (09:48)
[2022-08-14] MEDS: LACTULOSE 20 GM/30 ML UDC (FOR ORAL USE ONLY) PO SCH ×2 (09:48→21:23)
[2022-08-14] MEDS: IBUPROFEN 600 MG TABLET (FP) PO PRN (12:19)
[2022-08-14] MEDS: traZODone HCL 50 MG TABLET (FP) PO SCH (21:23)
[2022-08-14] MEDS: MELATONIN 5 MG TABLETS PO SCH (21:23)
[2022-08-14] MEDS: THIAMINE HCL 100 MG TABLET (FP) PO SCH (21:23)
[2022-08-15] MEDS: GABAPENTIN 300 MG CAPSULE PO SCH ×3 (06:20→21:25)
[2022-08-15] MEDS: hydrOXYzine PAMOATE 25 MG CAPSULE (FP) PO PRN ×3 (06:21→21:26)
[2022-08-15] MEDS: NICOTINE POLACRILEX 4 MG GUM BUC PRN ×6 (06:22→19:54)
[2022-08-15] MEDS: NICOTINE 10 MG CARTRIDGE (INHALER) IH PRN ×3 (06:23→21:27)
[2022-08-15 07:46] VITALS: TEMP 97.7
[2022-08-15] MEDS: IBUPROFEN 600 MG TABLET (FP) PO PRN (09:53)
[2022-08-15] MEDS: PRENATAL VITAMINS W/ FOLIC ACID TABLET (FP) PO SCH (09:53)
[2022-08-15] MEDS: LACTULOSE 20 GM/30 ML UDC (FOR ORAL USE ONLY) PO SCH ×2 (09:53→21:25)
[2022-08-15] MEDS: ESCITALOPRAM OXALATE 20 MG TABLET PO SCH (09:53)
[2022-08-15] MEDS: NICOTINE 21 MG/24 HOURS TOPICAL PATCH TD PRN (09:55)
[2022-08-15] MEDS: traZODone HCL 50 MG TABLET (FP) PO SCH (21:25)
[2022-08-15] MEDS: THIAMINE HCL 100 MG TABLET (FP) PO SCH (21:26)
[2022-08-15] MEDS: MELATONIN 5 MG TABLETS PO SCH (21:26)
[2022-08-16] MEDS: GABAPENTIN 300 MG CAPSULE PO SCH ×3 (06:31→21:25)
[2022-08-16] MEDS: NICOTINE 10 MG CARTRIDGE (INHALER) IH PRN ×2 (06:32→21:25)
[2022-08-16] MEDS: hydrOXYzine PAMOATE 25 MG CAPSULE (FP) PO PRN ×3 (06:32→21:25)
[2022-08-16] MEDS: NICOTINE POLACRILEX 4 MG GUM BUC PRN ×7 (06:33→20:02)
[2022-08-16 07:10] VITALS: RESP 18
[2022-08-16] MEDS ORDERED: ESCITALOPRAM OXALATE 10 MG TABLET ONE (08:21)
[2022-08-16] MEDS: ESCITALOPRAM OXALATE 20 MG TABLET PO SCH (10:06)
[2022-08-16] MEDS: PRENATAL VITAMINS W/ FOLIC ACID TABLET (FP) PO SCH (10:06)
[2022-08-16] MEDS: LACTULOSE 20 GM/30 ML UDC (FOR ORAL USE ONLY) PO SCH ×2 (10:06→21:26)
[2022-08-16] MEDS: IBUPROFEN 600 MG TABLET (FP) PO PRN (10:07)
[2022-08-16] MEDS: NICOTINE 21 MG/24 HOURS TOPICAL PATCH TD PRN (10:09)
[2022-08-16] MEDS: traZODone HCL 50 MG TABLET (FP) PO SCH (21:25)
[2022-08-16] MEDS: THIAMINE HCL 100 MG TABLET (FP) PO SCH (21:25)
[2022-08-16] MEDS: MELATONIN 5 MG TABLETS PO SCH (21:25)
[2022-08-17] MEDS: hydrOXYzine PAMOATE 25 MG CAPSULE (FP) PO PRN ×3 (06:31→21:40)
[2022-08-17] MEDS: GABAPENTIN 300 MG CAPSULE PO SCH ×3 (06:31→21:40)
[2022-08-17] MEDS: NICOTINE 10 MG CARTRIDGE (INHALER) IH PRN ×3 (06:32→21:42)
[2022-08-17] MEDS: NICOTINE POLACRILEX 4 MG GUM BUC PRN ×7 (06:32→21:42)
[2022-08-17] MEDS ORDERED: ESCITALOPRAM OXALATE 10 MG TABLET ONE (08:42)
[2022-08-17] MEDS: LACTULOSE 20 GM/30 ML UDC (FOR ORAL USE ONLY) PO SCH ×2 (09:42→21:41)
[2022-08-17] MEDS: NICOTINE 21 MG/24 HOURS TOPICAL PATCH TD PRN (09:42)
[2022-08-17] MEDS: PRENATAL VITAMINS W/ FOLIC ACID TABLET (FP) PO SCH (09:42)
[2022-08-17] MEDS: ESCITALOPRAM OXALATE 20 MG TABLET PO SCH (09:42)
[2022-08-17] MEDS: IBUPROFEN 600 MG TABLET (FP) PO PRN (09:43)
[2022-08-17] MEDS: LIDOCAINE 5% TOPICAL PATCH TP SCH (20:06)
[2022-08-17] MEDS: traZODone HCL 50 MG TABLET (FP) PO SCH (21:40)
[2022-08-17] MEDS: MELATONIN 5 MG TABLETS PO SCH (21:40)
[2022-08-17] MEDS: THIAMINE HCL 100 MG TABLET (FP) PO SCH (21:41)
[2022-08-17] MEDS ORDERED: LIDOCAINE PATCH REMOVAL MC SCH (22:00)
[2022-08-18] MEDS: GABAPENTIN 300 MG CAPSULE PO SCH (06:34)
[2022-08-18] MEDS: hydrOXYzine PAMOATE 25 MG CAPSULE (FP) PO PRN (06:36)
[2022-08-18] MEDS: NICOTINE POLACRILEX 4 MG GUM BUC PRN (06:36)
[2022-08-18] MEDS: NICOTINE 10 MG CARTRIDGE (INHALER) IH PRN (06:47)
[2022-08-18 06:59] VITALS: BP 134/85; PULSE 64
[2022-08-18] MEDS ORDERED: ESCITALOPRAM OXALATE 10 MG TABLET ONE (08:38)
[2022-08-18] MEDS: ESCITALOPRAM OXALATE 20 MG TABLET PO SCH (09:16)
[2022-08-18] MEDS: LACTULOSE 20 GM/30 ML UDC (FOR ORAL USE ONLY) PO SCH (09:17)
[2022-08-18] MEDS: LIDOCAINE 5% TOPICAL PATCH TP SCH (09:17)
[2022-08-18] MEDS: PRENATAL VITAMINS W/ FOLIC ACID TABLET (FP) PO SCH (09:17)
== END 2022-08-18 09:53 | disposition home or self-care (01) | DRG 772 ==
LOC: YASAS 11:28 → Y3W 11:30
PROVIDERS: ADMIT Allergy & Immunology; ATTEND Psychiatry & Neurology Pain Medicine
PROC: HZ42ZZZ Group Counseling for Substance Abuse Treatment, Cognitive-Behavioral (ICD-10-PCS; principal; 2022-08-06)
DX: F10.20 Alcohol dependence, uncomplicated (principal); F11.20 Opioid dependence, uncomplicated; F14.20 Cocaine dependence, uncomplicated; F13.20 Sedative, hypnotic or anxiolytic dependence, uncomplicated; F12.20 Cannabis dependence, uncomplicated; F17.210 Nicotine dependence, cigarettes, uncomplicated; F33.1 Major depressive disorder, recurrent, moderate; G47.00 Insomnia, unspecified; R79.89 Other specified abnormal findings of blood chemistry
CPT/HCPCS: 36415; 82140; 86803; J0475

== ENCOUNTER 2022-12-31 11:36 | Inpatient (IN) | payer OTHER ==
[2022-12-31 12:01] VITALS: BMI 23.0
[2022-12-31] MEDS ORDERED: guaiFENesin 600 MG TABLET.ER (FP) PO PRN (13:21)
[2022-12-31] MEDS ORDERED: IBUPROFEN 600 MG TABLET (FP) PO PRN (13:21)
[2022-12-31] MEDS ORDERED: BISMUTH SUBSALICYLATE 524 MG/30 ML PO PRN (13:21)
[2022-12-31] MEDS ORDERED: MAGNESIUM HYDROX 2400MG/30ML ORAL SUSPENSION 30 ML CUP PO PRN (13:21)
[2022-12-31] MEDS ORDERED: ONDANSETRON *ODT* 4 MG TABLET SL PRN (13:21)
[2022-12-31] MEDS ORDERED: POLYETHYLENE GLYCOL (HEALTHYLAX) 3350 17 GM PACKET PO PRN (13:21)
[2022-12-31] MEDS ORDERED: BENZOCAINE/MENTHOL (CHLORASEPTIC ) LOZENGE MM PRN (13:21)
[2022-12-31] MEDS ORDERED: LOPERAMIDE HCL 2 MG CAPSULE PO PRN (13:21)
[2022-12-31] MEDS ORDERED: DICYCLOMINE HCL 10 MG CAPSULE PO PRN (13:21)
[2022-12-31] MEDS ORDERED: IBUPROFEN 400 MG TABLET (FP) PO PRN (13:21)
[2022-12-31] MEDS ORDERED: NALOXONE HCL (KLOXXADO) 8 MG SPRAY NS PRN (13:21)
[2022-12-31] MEDS ORDERED: MAG HYDROX/AL HYDROX/SIMETH 30 ML UNIT-DOSE CUP PO PRN (13:21)
[2022-12-31] MEDS ORDERED: ACETAMINOPHEN 325 MG TABLET (FP) PO PRN (13:21)
[2022-12-31] MEDS ORDERED: NALOXONE HCL 0.4 MG/ML VIAL IM PRN (13:21)
[2022-12-31] MEDS ORDERED: BENZONATATE 200 MG CAPSULE PO PRN (13:21)
[2022-12-31] MEDS: NICOTINE POLACRILEX 4 MG GUM BUC PRN ×3 (13:35→22:54)
[2022-12-31] MEDS ORDERED: NICOTINE POLACRILEX 4 MG GUM BUC ONE (13:37)
[2022-12-31] MEDS ORDERED: hydrOXYzine PAMOATE 25 MG CAPSULE (FP) PO ONE (13:45)
[2022-12-31] MEDS: hydrOXYzine PAMOATE 25 MG CAPSULE (FP) PO PRN (13:47)
[2022-12-31] MEDS ORDERED: chlordiazePOXIDE HCL 25 MG CAPSULE ONE (14:48)
[2022-12-31] MEDS: chlordiazePOXIDE HCL 25 MG CAPSULE PO PRN ×2 (14:50→20:53)
[2022-12-31] MEDS: chlordiazePOXIDE HCL 25 MG CAPSULE PO SCH ×2 (17:25→22:51)
[2022-12-31] MEDS: traZODone HCL 100 MG TABLET (FP) PO SCH (22:52)
[2022-12-31] MEDS: GABAPENTIN 100 MG CAPSULE PO SCH (22:52)
[2022-12-31] MEDS: THIAMINE HCL 100 MG TABLET (FP) PO SCH (22:52)
[2022-12-31] MEDS: MELATONIN 5 MG TABLETS PO SCH (22:54)
[2023-01-01] MEDS: chlordiazePOXIDE HCL 25 MG CAPSULE PO SCH ×4 (05:40→22:33)
[2023-01-01] MEDS: GABAPENTIN 100 MG CAPSULE PO SCH ×3 (06:17→22:33)
[2023-01-01] MEDS: NICOTINE POLACRILEX 4 MG GUM BUC PRN ×6 (06:21→20:41)
[2023-01-01] MEDS ORDERED: ESCITALOPRAM OXALATE 10 MG TABLET PO SCH (10:00)
[2023-01-01] MEDS: ESCITALOPRAM OXALATE 10 MG TABLET PO SCH (10:30)
[2023-01-01] MEDS: PRENATAL VITAMINS W/ FOLIC ACID TABLET (FP) PO SCH (10:30)
[2023-01-01] MEDS: NICOTINE 21 MG/24 HOURS TOPICAL PATCH TD SCH (10:31)
[2023-01-01] MEDS: hydrOXYzine PAMOATE 25 MG CAPSULE (FP) PO PRN (13:04)
[2023-01-01] MEDS ORDERED: methaDONE HCL 10 MG TABLET PO SCH (14:00)
[2023-01-01] MEDS: METHOCARBAMOL 500 MG TABLET PO PRN (15:10)
[2023-01-01] MEDS: traZODone HCL 100 MG TABLET (FP) PO SCH (22:33)
[2023-01-01] MEDS: THIAMINE HCL 100 MG TABLET (FP) PO SCH (22:34)
[2023-01-01] MEDS: MELATONIN 5 MG TABLETS PO SCH (22:36)
[2023-01-02] MEDS: chlordiazePOXIDE HCL 25 MG CAPSULE PO SCH ×4 (05:31→22:45)
[2023-01-02] MEDS: GABAPENTIN 100 MG CAPSULE PO SCH (05:31)
[2023-01-02] MEDS: NICOTINE POLACRILEX 4 MG GUM BUC PRN ×5 (05:35→22:47)
[2023-01-02 09:35] LABS: HEMATOCRIT 39.6 % (35.4-49); HEMOGLOBIN 12.6 GM/dL (11.7-16.9); MCH 25.4 pg (25.7-33.7); MCHC 31.8 g/dl (32.0-35.9); MEAN CELL VOLUME 79.7 fl (80-96); MEAN PLT VOLUME 8.5 fl (7.5-11.1); PLATELET COUNT 309 10^3/uL (134-434); RBC 4.97 M/mm3 (4.00-5.60); RDW 15.5 % (11.9-15.9); WHITE BLOOD COUNT 10.4 K/mm3 (4.0-10.0)
[2023-01-02 09:41] LABS: POTASSIUM 4.7 mmol/L (3.5-5.1)
[2023-01-02 09:59] LABS: CALCIUM 9.1 mg/dL (8.5-10.1)
[2023-01-02 10:00] LABS: ALBUMIN 3.6 g/dl (3.4-5.0); BLOOD UREA NITROGEN 11.3 mg/dL (7-18)
[2023-01-02 10:03] LABS: CREATININE 0.7 mg/dL (0.55-1.3)
[2023-01-02 10:04] LABS: BILIRUBIN,TOTAL 0.2 mg/dL (0.2-1); TOT PROT 7.4 g/dl (6.4-8.2)
[2023-01-02] MEDS: METHOCARBAMOL 500 MG TABLET PO PRN ×2 (10:32→17:17)
[2023-01-02] MEDS: PRENATAL VITAMINS W/ FOLIC ACID TABLET (FP) PO SCH (10:32)
[2023-01-02] MEDS: ESCITALOPRAM OXALATE 10 MG TABLET PO SCH (10:32)
[2023-01-02] MEDS: NICOTINE 21 MG/24 HOURS TOPICAL PATCH TD SCH (10:36)
[2023-01-02] MEDS ORDERED: ESCITALOPRAM OXALATE 10 MG TABLET PO ONE (11:30)
[2023-01-02] MEDS: GABAPENTIN 300 MG CAPSULE PO SCH ×2 (13:02→22:45)
[2023-01-02] MEDS: hydrOXYzine PAMOATE 25 MG CAPSULE (FP) PO PRN (17:17)
[2023-01-02] MEDS: chlordiazePOXIDE HCL 25 MG CAPSULE PO PRN (19:28)
[2023-01-02] MEDS: THIAMINE HCL 100 MG TABLET (FP) PO SCH (22:45)
[2023-01-02] MEDS: traZODone HCL 100 MG TABLET (FP) PO SCH (22:45)
[2023-01-02] MEDS: MELATONIN 5 MG TABLETS PO SCH (22:46)
[2023-01-03] MEDS: GABAPENTIN 300 MG CAPSULE PO SCH ×3 (05:53→21:58)
[2023-01-03] MEDS: chlordiazePOXIDE HCL 10 MG CAPSULE PO SCH ×4 (05:54→22:00)
[2023-01-03] MEDS: NICOTINE POLACRILEX 4 MG GUM BUC PRN ×6 (08:29→21:29)
[2023-01-03] MEDS: hydrOXYzine PAMOATE 25 MG CAPSULE (FP) PO PRN ×2 (08:31→18:24)
[2023-01-03] MEDS: ESCITALOPRAM OXALATE 10 MG TABLET PO SCH (10:44)
[2023-01-03] MEDS: PRENATAL VITAMINS W/ FOLIC ACID TABLET (FP) PO SCH (10:44)
[2023-01-03] MEDS: NICOTINE 21 MG/24 HOURS TOPICAL PATCH TD SCH (10:45)
[2023-01-03] MEDS: METHOCARBAMOL 500 MG TABLET PO PRN ×2 (10:48→22:00)
[2023-01-03] MEDS: chlordiazePOXIDE HCL 10 MG CAPSULE PO PRN ×2 (12:22→20:16)
[2023-01-03] MEDS: traZODone HCL 100 MG TABLET (FP) PO SCH (21:58)
[2023-01-03] MEDS: THIAMINE HCL 100 MG TABLET (FP) PO SCH (21:58)
[2023-01-03] MEDS: MELATONIN 5 MG TABLETS PO SCH (22:01)
[2023-01-04] MEDS: GABAPENTIN 300 MG CAPSULE PO SCH ×3 (05:33→23:12)
[2023-01-04] MEDS: chlordiazePOXIDE HCL 10 MG CAPSULE PO SCH ×2 (05:33→16:36)
[2023-01-04] MEDS: NICOTINE POLACRILEX 4 MG GUM BUC PRN ×4 (05:38→16:38)
[2023-01-04] MEDS: hydrOXYzine PAMOATE 25 MG CAPSULE (FP) PO PRN ×2 (06:33→10:36)
[2023-01-04] MEDS: BACITRACIN 0.9 GM PACKET TP SCH ×2 (10:36→23:12)
[2023-01-04] MEDS: CEPHALEXIN MONOHYDRATE 500 MG CAPSULE (UD) PO SCH ×2 (10:36→23:12)
[2023-01-04] MEDS: ESCITALOPRAM OXALATE 10 MG TABLET PO SCH (10:36)
[2023-01-04] MEDS: METHOCARBAMOL 500 MG TABLET PO PRN ×2 (10:36→16:35)
[2023-01-04] MEDS: PRENATAL VITAMINS W/ FOLIC ACID TABLET (FP) PO SCH (10:37)
[2023-01-04] MEDS: NICOTINE 21 MG/24 HOURS TOPICAL PATCH TD SCH (10:37)
[2023-01-04 11:20] LABS: BASO % 0.6 % (0-2.0); HEMATOCRIT 37.6 % (35.4-49); HEMOGLOBIN 11.8 GM/dL (11.7-16.9); LYMPH % 49.7 % (8-40); MCH 25.3 pg (25.7-33.7); MCHC 31.5 g/dl (32.0-35.9); MEAN CELL VOLUME 80.2 fl (80-96); MEAN PLT VOLUME 8.7 fl (7.5-11.1); MONO % 5.6 % (3.8-10.2); NEUT % 34.1 % (42.8-82.8); PLATELET COUNT 302 10^3/uL (134-434); RBC 4.69 M/mm3 (4.00-5.60); RDW 15.2 % (11.9-15.9); WHITE BLOOD COUNT 8.7 K/mm3 (4.0-10.0)
[2023-01-04] MEDS ORDERED: BACLOFEN 10 MG TABLET (FP) PO ONE (11:30)
[2023-01-04] MEDS: traZODone HCL 100 MG TABLET (FP) PO SCH (23:12)
[2023-01-04] MEDS: THIAMINE HCL 100 MG TABLET (FP) PO SCH (23:12)
[2023-01-04] MEDS: MELATONIN 5 MG TABLETS PO SCH (23:13)
[2023-01-05] MEDS ORDERED: chlordiazePOXIDE HCL 10 MG CAPSULE PO ONE (05:00)
[2023-01-05] MEDS: GABAPENTIN 300 MG CAPSULE PO SCH ×2 (05:49→14:22)
[2023-01-05] MEDS: NICOTINE POLACRILEX 4 MG GUM BUC PRN ×2 (05:50→08:59)
[2023-01-05] MEDS: hydrOXYzine PAMOATE 25 MG CAPSULE (FP) PO PRN (06:49)
[2023-01-05 09:03] VITALS: BP 109/50; PULSE 80; RESP 18; TEMP 98.1
[2023-01-05] MEDS: METHOCARBAMOL 500 MG TABLET PO PRN (09:03)
[2023-01-05] MEDS: BACITRACIN 0.9 GM PACKET TP SCH (09:03)
[2023-01-05] MEDS: CEPHALEXIN MONOHYDRATE 500 MG CAPSULE (UD) PO SCH (09:03)
[2023-01-05] MEDS: ESCITALOPRAM OXALATE 10 MG TABLET PO SCH (09:03)
[2023-01-05] MEDS: NICOTINE 21 MG/24 HOURS TOPICAL PATCH TD SCH (09:04)
[2023-01-05] MEDS: PRENATAL VITAMINS W/ FOLIC ACID TABLET (FP) PO SCH (09:05)
== END 2023-01-05 12:15 | disposition other institution (70) | DRG 773 ==
LOC: YASAS 11:36 → Y6N 13:46
PROVIDERS: ADMIT Allergy & Immunology; ATTEND Surgery
PROC: HZ2ZZZZ Detoxification Services for Substance Abuse Treatment (ICD-10-PCS; principal; 2022-12-31)
DX: F10.230 Alcohol dependence with withdrawal, uncomplicated (principal); F11.20 Opioid dependence, uncomplicated; F14.20 Cocaine dependence, uncomplicated; F17.210 Nicotine dependence, cigarettes, uncomplicated; F32.A Depression, unspecified; D72.829 Elevated white blood cell count, unspecified; G47.00 Insomnia, unspecified; Z86.59 Personal history of other mental and behavioral disorders; Z91.148 Patient's other noncompliance with medication regimen for other reason; Z87.2 Personal history of diseases of the skin and subcutaneous tissue
CPT/HCPCS: 36415; 80053; 85025; 85027; 86780; 87635; 93005; 93010; J0475; Q0162

== ENCOUNTER 2023-01-05 12:37 | Inpatient (IN) | payer OTHER ==
[2023-01-05] MEDS ORDERED: IBUPROFEN 400 MG TABLET (FP) PO PRN (13:30)
[2023-01-05] MEDS ORDERED: LOPERAMIDE HCL 2 MG CAPSULE PO PRN (13:30)
[2023-01-05] MEDS ORDERED: NALOXONE HCL (KLOXXADO) 8 MG SPRAY NS PRN (13:30)
[2023-01-05] MEDS ORDERED: BENZOCAINE/MENTHOL (CHLORASEPTIC ) LOZENGE MM PRN (13:30)
[2023-01-05] MEDS ORDERED: NALOXONE HCL 0.4 MG/ML VIAL IVPUSH PRN (13:30)
[2023-01-05] MEDS ORDERED: guaiFENesin 600 MG TABLET.ER (FP) PO PRN (13:30)
[2023-01-05] MEDS ORDERED: BENZONATATE 200 MG CAPSULE PO PRN (13:30)
[2023-01-05] MEDS ORDERED: MAG HYDROX/AL HYDROX/SIMETH 30 ML UNIT-DOSE CUP PO PRN (13:30)
[2023-01-05] MEDS ORDERED: POLYETHYLENE GLYCOL (HEALTHYLAX) 3350 17 GM PACKET PO PRN (13:30)
[2023-01-05] MEDS: PRENATAL VITAMINS W/ FOLIC ACID TABLET (FP) PO SCH (13:56)
[2023-01-05] MEDS: NICOTINE POLACRILEX 4 MG GUM BUC PRN ×2 (15:38→20:51)
[2023-01-05] MEDS: hydrOXYzine PAMOATE 25 MG CAPSULE (FP) PO PRN (17:31)
[2023-01-05] MEDS: METHOCARBAMOL 500 MG TABLET PO PRN (17:32)
[2023-01-05] MEDS: THIAMINE HCL 100 MG TABLET (FP) PO SCH (21:24)
[2023-01-05] MEDS: GABAPENTIN 300 MG CAPSULE PO SCH (21:24)
[2023-01-05] MEDS: traZODone HCL 100 MG TABLET (FP) PO SCH (21:24)
[2023-01-05] MEDS: CEPHALEXIN MONOHYDRATE 500 MG CAPSULE (UD) PO SCH (21:24)
[2023-01-05] MEDS ORDERED: MELATONIN 5 MG TABLETS PO SCH (22:00)
[2023-01-06] MEDS: NICOTINE POLACRILEX 4 MG GUM BUC PRN ×7 (03:42→20:03)
[2023-01-06] MEDS ORDERED: methaDONE HCL 40 MG DISPERSABLE TABLET PO SCH (06:00)
[2023-01-06] MEDS: GABAPENTIN 300 MG CAPSULE PO SCH ×3 (06:22→21:41)
[2023-01-06] MEDS: hydrOXYzine PAMOATE 25 MG CAPSULE (FP) PO PRN ×3 (07:28→21:45)
[2023-01-06] MEDS ORDERED: traZODone HCL 100 MG TABLET (FP) PO ONE (10:00)
[2023-01-06] MEDS: BACITRACIN 0.9 GM PACKET TP SCH (10:03)
[2023-01-06] MEDS: CEPHALEXIN MONOHYDRATE 500 MG CAPSULE (UD) PO SCH ×2 (10:03→21:41)
[2023-01-06] MEDS: PRENATAL VITAMINS W/ FOLIC ACID TABLET (FP) PO SCH (10:03)
[2023-01-06] MEDS: ESCITALOPRAM OXALATE 10 MG TABLET PO SCH (10:03)
[2023-01-06] MEDS: METHOCARBAMOL 500 MG TABLET PO PRN ×2 (10:04→16:09)
[2023-01-06] MEDS: COLLOIDAL OATMEAL 1 BAR EACH TP PRN (10:06)
[2023-01-06] MEDS: NICOTINE 21 MG/24 HOURS TOPICAL PATCH TD SCH (11:29)
[2023-01-06] MEDS: THIAMINE HCL 100 MG TABLET (FP) PO SCH (21:40)
[2023-01-06] MEDS: traZODone HCL 100 MG TABLET (FP) PO SCH (21:41)
[2023-01-07] MEDS: hydrOXYzine PAMOATE 25 MG CAPSULE (FP) PO PRN ×3 (06:19→21:18)
[2023-01-07] MEDS: GABAPENTIN 300 MG CAPSULE PO SCH ×3 (06:19→21:18)
[2023-01-07] MEDS: NICOTINE POLACRILEX 4 MG GUM BUC PRN ×7 (06:22→18:47)
[2023-01-07] MEDS: CEPHALEXIN MONOHYDRATE 500 MG CAPSULE (UD) PO SCH ×2 (09:59→21:18)
[2023-01-07] MEDS: ESCITALOPRAM OXALATE 10 MG TABLET PO SCH (09:59)
[2023-01-07] MEDS: PRENATAL VITAMINS W/ FOLIC ACID TABLET (FP) PO SCH (09:59)
[2023-01-07] MEDS: BACITRACIN 0.9 GM PACKET TP SCH (09:59)
[2023-01-07] MEDS: NICOTINE 21 MG/24 HOURS TOPICAL PATCH TD SCH (10:00)
[2023-01-07] MEDS: METHOCARBAMOL 500 MG TABLET PO PRN ×2 (10:01→16:45)
[2023-01-07] MEDS: traZODone HCL 100 MG TABLET (FP) PO SCH (21:18)
[2023-01-07] MEDS: THIAMINE HCL 100 MG TABLET (FP) PO SCH (21:18)
[2023-01-08] MEDS: ACETAMINOPHEN 325 MG TABLET (FP) PO PRN (01:51)
[2023-01-08] MEDS: METHOCARBAMOL 500 MG TABLET PO PRN ×3 (01:51→19:23)
[2023-01-08] MEDS: NICOTINE POLACRILEX 4 MG GUM BUC PRN ×4 (07:19→19:22)
[2023-01-08] MEDS: GABAPENTIN 300 MG CAPSULE PO SCH ×3 (07:20→21:18)
[2023-01-08] MEDS: hydrOXYzine PAMOATE 25 MG CAPSULE (FP) PO PRN ×2 (07:20→15:22)
[2023-01-08] MEDS: PRENATAL VITAMINS W/ FOLIC ACID TABLET (FP) PO SCH (10:28)
[2023-01-08] MEDS: BACITRACIN 0.9 GM PACKET TP SCH (10:29)
[2023-01-08] MEDS: CEPHALEXIN MONOHYDRATE 500 MG CAPSULE (UD) PO SCH ×2 (10:29→21:18)
[2023-01-08] MEDS: NICOTINE 21 MG/24 HOURS TOPICAL PATCH TD SCH (10:29)
[2023-01-08] MEDS: ESCITALOPRAM OXALATE 10 MG TABLET PO SCH (10:30)
[2023-01-08] MEDS: IBUPROFEN 600 MG TABLET (FP) PO PRN (13:33)
[2023-01-08] MEDS: THIAMINE HCL 100 MG TABLET (FP) PO SCH (21:18)
[2023-01-08] MEDS: traZODone HCL 100 MG TABLET (FP) PO SCH (21:18)
[2023-01-09] MEDS: NICOTINE POLACRILEX 4 MG GUM BUC PRN ×8 (02:51→21:22)
[2023-01-09] MEDS: hydrOXYzine PAMOATE 25 MG CAPSULE (FP) PO PRN ×3 (02:53→21:18)
[2023-01-09] MEDS: GABAPENTIN 300 MG CAPSULE PO SCH ×3 (07:05→21:20)
[2023-01-09] MEDS: METHOCARBAMOL 500 MG TABLET PO PRN ×3 (07:06→21:20)
[2023-01-09] MEDS: CEPHALEXIN MONOHYDRATE 500 MG CAPSULE (UD) PO SCH ×2 (09:56→21:20)
[2023-01-09] MEDS: BACITRACIN 0.9 GM PACKET TP SCH (09:56)
[2023-01-09] MEDS: NICOTINE 21 MG/24 HOURS TOPICAL PATCH TD SCH (09:58)
[2023-01-09] MEDS: ESCITALOPRAM OXALATE 10 MG TABLET PO SCH (09:58)
[2023-01-09] MEDS: PRENATAL VITAMINS W/ FOLIC ACID TABLET (FP) PO SCH (10:05)
[2023-01-09] MEDS: IBUPROFEN 600 MG TABLET (FP) PO PRN (13:39)
[2023-01-09] MEDS: traZODone HCL 100 MG TABLET (FP) PO SCH (21:20)
[2023-01-09] MEDS: THIAMINE HCL 100 MG TABLET (FP) PO SCH (21:20)
[2023-01-10] MEDS: GABAPENTIN 300 MG CAPSULE PO SCH ×3 (07:15→21:30)
[2023-01-10] MEDS: NICOTINE POLACRILEX 4 MG GUM BUC PRN ×6 (07:16→21:31)
[2023-01-10] MEDS: hydrOXYzine PAMOATE 25 MG CAPSULE (FP) PO PRN ×2 (08:29→18:02)
[2023-01-10] MEDS: METHOCARBAMOL 500 MG TABLET PO PRN ×3 (08:29→21:31)
[2023-01-10] MEDS: PRENATAL VITAMINS W/ FOLIC ACID TABLET (FP) PO SCH (09:50)
[2023-01-10] MEDS: NICOTINE 21 MG/24 HOURS TOPICAL PATCH TD SCH (09:51)
[2023-01-10] MEDS: BACITRACIN 0.9 GM PACKET TP SCH (09:52)
[2023-01-10] MEDS: CEPHALEXIN MONOHYDRATE 500 MG CAPSULE (UD) PO SCH ×2 (09:52→21:31)
[2023-01-10] MEDS: ESCITALOPRAM OXALATE 10 MG TABLET PO SCH (09:52)
[2023-01-10] MEDS: THIAMINE HCL 100 MG TABLET (FP) PO SCH (21:31)
[2023-01-10] MEDS: traZODone HCL 100 MG TABLET (FP) PO SCH (21:31)
[2023-01-11] MEDS: GABAPENTIN 300 MG CAPSULE PO SCH ×3 (06:30→21:18)
[2023-01-11] MEDS: NICOTINE POLACRILEX 4 MG GUM BUC PRN ×6 (06:32→19:24)
[2023-01-11] MEDS: METHOCARBAMOL 500 MG TABLET PO PRN ×2 (07:34→15:50)
[2023-01-11] MEDS: hydrOXYzine PAMOATE 25 MG CAPSULE (FP) PO PRN ×2 (07:34→21:18)
[2023-01-11] MEDS: PRENATAL VITAMINS W/ FOLIC ACID TABLET (FP) PO SCH (09:55)
[2023-01-11] MEDS: NICOTINE 21 MG/24 HOURS TOPICAL PATCH TD SCH (09:56)
[2023-01-11] MEDS: BACITRACIN 0.9 GM PACKET TP SCH (09:56)
[2023-01-11] MEDS: ESCITALOPRAM OXALATE 10 MG TABLET PO SCH (09:56)
[2023-01-11] MEDS: ACETAMINOPHEN 325 MG TABLET (FP) PO PRN (09:58)
[2023-01-11] MEDS ORDERED: METHOCARBAMOL 500 MG TABLET PO PRN (15:19)
[2023-01-11] MEDS ORDERED: METHOCARBAMOL 500 MG TABLET PO SCH (15:30)
[2023-01-11] MEDS: THIAMINE HCL 100 MG TABLET (FP) PO SCH (21:18)
[2023-01-11] MEDS: traZODone HCL 100 MG TABLET (FP) PO SCH (21:18)
[2023-01-12] MEDS: GABAPENTIN 300 MG CAPSULE PO SCH ×3 (06:57→21:17)
[2023-01-12] MEDS: METHOCARBAMOL 500 MG TABLET PO PRN ×2 (06:59→21:22)
[2023-01-12] MEDS: NICOTINE POLACRILEX 4 MG GUM BUC PRN ×6 (07:00→19:35)
[2023-01-12] MEDS: hydrOXYzine PAMOATE 25 MG CAPSULE (FP) PO PRN ×2 (07:00→21:18)
[2023-01-12] MEDS: ESCITALOPRAM OXALATE 10 MG TABLET PO SCH (10:02)
[2023-01-12] MEDS: BACITRACIN 0.9 GM PACKET TP SCH (10:02)
[2023-01-12] MEDS: PRENATAL VITAMINS W/ FOLIC ACID TABLET (FP) PO SCH (10:02)
[2023-01-12] MEDS: NICOTINE 21 MG/24 HOURS TOPICAL PATCH TD SCH (10:02)
[2023-01-12] MEDS: traZODone HCL 100 MG TABLET (FP) PO SCH (21:17)
[2023-01-12] MEDS: THIAMINE HCL 100 MG TABLET (FP) PO SCH (21:17)
[2023-01-13] MEDS: GABAPENTIN 300 MG CAPSULE PO SCH ×3 (07:05→21:13)
[2023-01-13] MEDS: NICOTINE POLACRILEX 4 MG GUM BUC PRN ×5 (07:05→19:13)
[2023-01-13] MEDS: PRENATAL VITAMINS W/ FOLIC ACID TABLET (FP) PO SCH (09:47)
[2023-01-13] MEDS: ESCITALOPRAM OXALATE 10 MG TABLET PO SCH (09:48)
[2023-01-13] MEDS: NICOTINE 21 MG/24 HOURS TOPICAL PATCH TD SCH (09:48)
[2023-01-13] MEDS: BACITRACIN 0.9 GM PACKET TP SCH (09:48)
[2023-01-13] MEDS: hydrOXYzine PAMOATE 25 MG CAPSULE (FP) PO PRN ×2 (09:49→21:12)
[2023-01-13] MEDS: METHOCARBAMOL 500 MG TABLET PO PRN ×2 (09:50→21:13)
[2023-01-13] MEDS: THIAMINE HCL 100 MG TABLET (FP) PO SCH (21:13)
[2023-01-13] MEDS: traZODone HCL 100 MG TABLET (FP) PO SCH (21:13)
[2023-01-14] MEDS: GABAPENTIN 300 MG CAPSULE PO SCH ×3 (07:05→21:20)
[2023-01-14] MEDS: NICOTINE POLACRILEX 4 MG GUM BUC PRN ×6 (07:06→19:24)
[2023-01-14] MEDS: BACITRACIN 0.9 GM PACKET TP SCH (09:56)
[2023-01-14] MEDS: PRENATAL VITAMINS W/ FOLIC ACID TABLET (FP) PO SCH (09:56)
[2023-01-14] MEDS: NICOTINE 21 MG/24 HOURS TOPICAL PATCH TD SCH (09:56)
[2023-01-14] MEDS: METHOCARBAMOL 500 MG TABLET PO PRN (09:57)
[2023-01-14] MEDS: ESCITALOPRAM OXALATE 10 MG TABLET PO SCH (09:58)
[2023-01-14] MEDS: THIAMINE HCL 100 MG TABLET (FP) PO SCH (21:20)
[2023-01-14] MEDS: traZODone HCL 100 MG TABLET (FP) PO SCH (21:20)
[2023-01-14] MEDS: hydrOXYzine PAMOATE 25 MG CAPSULE (FP) PO PRN (21:21)
[2023-01-15] MEDS: GABAPENTIN 300 MG CAPSULE PO SCH ×3 (06:40→21:43)
[2023-01-15] MEDS: NICOTINE POLACRILEX 4 MG GUM BUC PRN ×6 (06:41→20:46)
[2023-01-15] MEDS: METHOCARBAMOL 500 MG TABLET PO PRN ×2 (06:43→21:43)
[2023-01-15 06:56] VITALS: RESP 18
[2023-01-15] MEDS: ESCITALOPRAM OXALATE 10 MG TABLET PO SCH (09:58)
[2023-01-15] MEDS: NICOTINE 21 MG/24 HOURS TOPICAL PATCH TD SCH (09:58)
[2023-01-15] MEDS: PRENATAL VITAMINS W/ FOLIC ACID TABLET (FP) PO SCH (09:58)
[2023-01-15] MEDS: BACITRACIN 0.9 GM PACKET TP SCH (10:00)
[2023-01-15] MEDS: hydrOXYzine PAMOATE 25 MG CAPSULE (FP) PO PRN ×2 (12:14→21:43)
[2023-01-15] MEDS: ACETAMINOPHEN 325 MG TABLET (FP) PO PRN (15:40)
[2023-01-15] MEDS: traZODone HCL 100 MG TABLET (FP) PO SCH (21:43)
[2023-01-15] MEDS: THIAMINE HCL 100 MG TABLET (FP) PO SCH (21:43)
[2023-01-16] MEDS: GABAPENTIN 300 MG CAPSULE PO SCH ×3 (07:10→22:14)
[2023-01-16] MEDS: NICOTINE POLACRILEX 4 MG GUM BUC PRN ×6 (07:12→20:38)
[2023-01-16] MEDS: ESCITALOPRAM OXALATE 10 MG TABLET PO SCH (10:09)
[2023-01-16] MEDS: PRENATAL VITAMINS W/ FOLIC ACID TABLET (FP) PO SCH (10:09)
[2023-01-16] MEDS: BACITRACIN 0.9 GM PACKET TP SCH (10:09)
[2023-01-16] MEDS: NICOTINE 21 MG/24 HOURS TOPICAL PATCH TD SCH (10:09)
[2023-01-16] MEDS: ACETAMINOPHEN 325 MG TABLET (FP) PO PRN (18:25)
[2023-01-16] MEDS: THIAMINE HCL 100 MG TABLET (FP) PO SCH (22:14)
[2023-01-16] MEDS: traZODone HCL 100 MG TABLET (FP) PO SCH (22:14)
[2023-01-16] MEDS: METHOCARBAMOL 500 MG TABLET PO PRN (22:14)
[2023-01-16] MEDS: hydrOXYzine PAMOATE 25 MG CAPSULE (FP) PO PRN (22:14)
[2023-01-17] MEDS: GABAPENTIN 300 MG CAPSULE PO SCH ×3 (06:56→21:20)
[2023-01-17] MEDS: NICOTINE POLACRILEX 4 MG GUM BUC PRN ×6 (06:58→22:31)
[2023-01-17] MEDS: ESCITALOPRAM OXALATE 10 MG TABLET PO SCH (09:41)
[2023-01-17] MEDS: PRENATAL VITAMINS W/ FOLIC ACID TABLET (FP) PO SCH (09:41)
[2023-01-17] MEDS: BACITRACIN 0.9 GM PACKET TP SCH (09:42)
[2023-01-17] MEDS: NICOTINE 21 MG/24 HOURS TOPICAL PATCH TD SCH (09:42)
[2023-01-17] MEDS: METHOCARBAMOL 500 MG TABLET PO PRN (19:54)
[2023-01-17] MEDS: THIAMINE HCL 100 MG TABLET (FP) PO SCH (21:20)
[2023-01-17] MEDS: traZODone HCL 100 MG TABLET (FP) PO SCH (21:20)
[2023-01-17] MEDS: hydrOXYzine PAMOATE 25 MG CAPSULE (FP) PO PRN (21:20)
[2023-01-18] MEDS: GABAPENTIN 300 MG CAPSULE PO SCH ×3 (07:21→21:24)
[2023-01-18] MEDS: PRENATAL VITAMINS W/ FOLIC ACID TABLET (FP) PO SCH (09:56)
[2023-01-18] MEDS: BACITRACIN 0.9 GM PACKET TP SCH (09:56)
[2023-01-18] MEDS: NICOTINE 21 MG/24 HOURS TOPICAL PATCH TD SCH (09:57)
[2023-01-18] MEDS: ESCITALOPRAM OXALATE 10 MG TABLET PO SCH (09:57)
[2023-01-18] MEDS: NICOTINE POLACRILEX 4 MG GUM BUC PRN ×4 (09:58→20:24)
[2023-01-18] MEDS: METHOCARBAMOL 500 MG TABLET PO PRN (20:28)
[2023-01-18] MEDS: THIAMINE HCL 100 MG TABLET (FP) PO SCH (21:24)
[2023-01-18] MEDS: hydrOXYzine PAMOATE 25 MG CAPSULE (FP) PO PRN (21:24)
[2023-01-18] MEDS: traZODone HCL 100 MG TABLET (FP) PO SCH (21:25)
[2023-01-19] MEDS: GABAPENTIN 300 MG CAPSULE PO SCH ×3 (06:44→21:12)
[2023-01-19] MEDS: NICOTINE POLACRILEX 4 MG GUM BUC PRN ×5 (06:45→17:14)
[2023-01-19] MEDS: NICOTINE 21 MG/24 HOURS TOPICAL PATCH TD SCH (09:35)
[2023-01-19] MEDS: BACITRACIN 0.9 GM PACKET TP SCH (09:35)
[2023-01-19] MEDS: PRENATAL VITAMINS W/ FOLIC ACID TABLET (FP) PO SCH (09:35)
[2023-01-19] MEDS: ESCITALOPRAM OXALATE 10 MG TABLET PO SCH (09:35)
[2023-01-19] MEDS: THIAMINE HCL 100 MG TABLET (FP) PO SCH (21:12)
[2023-01-19] MEDS: METHOCARBAMOL 500 MG TABLET PO PRN (21:12)
[2023-01-19] MEDS: traZODone HCL 100 MG TABLET (FP) PO SCH (21:12)
[2023-01-19] MEDS: hydrOXYzine PAMOATE 25 MG CAPSULE (FP) PO PRN (21:12)
[2023-01-19] MEDS: COLLOIDAL OATMEAL 1 BAR EACH TP PRN (22:14)
[2023-01-20] MEDS: GABAPENTIN 300 MG CAPSULE PO SCH ×3 (06:43→21:34)
[2023-01-20] MEDS: NICOTINE POLACRILEX 4 MG GUM BUC PRN ×7 (06:44→21:36)
[2023-01-20] MEDS: ESCITALOPRAM OXALATE 10 MG TABLET PO SCH (09:56)
[2023-01-20] MEDS: NICOTINE 21 MG/24 HOURS TOPICAL PATCH TD SCH (09:56)
[2023-01-20] MEDS: BACITRACIN 0.9 GM PACKET TP SCH (09:56)
[2023-01-20] MEDS: PRENATAL VITAMINS W/ FOLIC ACID TABLET (FP) PO SCH (09:56)
[2023-01-20] MEDS: METHOCARBAMOL 500 MG TABLET PO PRN (21:35)
[2023-01-20] MEDS: hydrOXYzine PAMOATE 25 MG CAPSULE (FP) PO PRN (21:35)
[2023-01-20] MEDS: traZODone HCL 100 MG TABLET (FP) PO SCH (21:35)
[2023-01-20] MEDS: THIAMINE HCL 100 MG TABLET (FP) PO SCH (21:35)
[2023-01-21] MEDS: GABAPENTIN 300 MG CAPSULE PO SCH ×3 (07:14→21:27)
[2023-01-21] MEDS: NICOTINE POLACRILEX 4 MG GUM BUC PRN ×4 (07:15→16:58)
[2023-01-21] MEDS: PRENATAL VITAMINS W/ FOLIC ACID TABLET (FP) PO SCH (09:53)
[2023-01-21] MEDS: NICOTINE 21 MG/24 HOURS TOPICAL PATCH TD SCH (09:53)
[2023-01-21] MEDS: ESCITALOPRAM OXALATE 10 MG TABLET PO SCH (09:53)
[2023-01-21] MEDS: BACITRACIN 0.9 GM PACKET TP SCH (09:53)
[2023-01-21] MEDS: ACETAMINOPHEN 325 MG TABLET (FP) PO PRN (09:54)
[2023-01-21] MEDS: METHOCARBAMOL 500 MG TABLET PO PRN (16:58)
[2023-01-21] MEDS: hydrOXYzine PAMOATE 25 MG CAPSULE (FP) PO PRN (21:27)
[2023-01-21] MEDS: traZODone HCL 100 MG TABLET (FP) PO SCH (21:27)
[2023-01-21] MEDS: THIAMINE HCL 100 MG TABLET (FP) PO SCH (21:27)
[2023-01-22] MEDS: GABAPENTIN 300 MG CAPSULE PO SCH ×3 (06:58→21:23)
[2023-01-22] MEDS: NICOTINE POLACRILEX 4 MG GUM BUC PRN ×4 (07:00→19:53)
[2023-01-22] MEDS: PRENATAL VITAMINS W/ FOLIC ACID TABLET (FP) PO SCH (09:29)
[2023-01-22] MEDS: BACITRACIN 0.9 GM PACKET TP SCH (09:30)
[2023-01-22] MEDS: NICOTINE 21 MG/24 HOURS TOPICAL PATCH TD SCH (09:30)
[2023-01-22] MEDS: ESCITALOPRAM OXALATE 10 MG TABLET PO SCH (09:30)
[2023-01-22] MEDS: hydrOXYzine PAMOATE 25 MG CAPSULE (FP) PO PRN (19:54)
[2023-01-22] MEDS: METHOCARBAMOL 500 MG TABLET PO PRN (19:54)
[2023-01-22] MEDS: THIAMINE HCL 100 MG TABLET (FP) PO SCH (21:22)
[2023-01-22] MEDS: ACETAMINOPHEN 325 MG TABLET (FP) PO PRN (21:23)
[2023-01-22] MEDS: traZODone HCL 100 MG TABLET (FP) PO SCH (21:23)
[2023-01-23] MEDS: GABAPENTIN 300 MG CAPSULE PO SCH ×3 (07:06→21:21)
[2023-01-23] MEDS: PRENATAL VITAMINS W/ FOLIC ACID TABLET (FP) PO SCH (09:43)
[2023-01-23] MEDS: ESCITALOPRAM OXALATE 10 MG TABLET PO SCH (09:43)
[2023-01-23] MEDS: NICOTINE 21 MG/24 HOURS TOPICAL PATCH TD SCH (09:44)
[2023-01-23] MEDS: BACITRACIN 0.9 GM PACKET TP SCH (09:44)
[2023-01-23] MEDS: NICOTINE POLACRILEX 4 MG GUM BUC PRN ×5 (09:44→22:19)
[2023-01-23] MEDS: METHOCARBAMOL 500 MG TABLET PO PRN ×2 (09:45→21:21)
[2023-01-23] MEDS: traZODone HCL 100 MG TABLET (FP) PO SCH (21:21)
[2023-01-23] MEDS: hydrOXYzine PAMOATE 25 MG CAPSULE (FP) PO PRN (21:21)
[2023-01-23] MEDS: THIAMINE HCL 100 MG TABLET (FP) PO SCH (21:21)
[2023-01-24] MEDS: GABAPENTIN 300 MG CAPSULE PO SCH ×3 (06:42→21:32)
[2023-01-24] MEDS: NICOTINE POLACRILEX 4 MG GUM BUC PRN ×5 (06:44→17:34)
[2023-01-24] MEDS: PRENATAL VITAMINS W/ FOLIC ACID TABLET (FP) PO SCH (09:42)
[2023-01-24] MEDS: BACITRACIN 0.9 GM PACKET TP SCH (09:42)
[2023-01-24] MEDS: NICOTINE 21 MG/24 HOURS TOPICAL PATCH TD SCH (09:43)
[2023-01-24] MEDS: ESCITALOPRAM OXALATE 10 MG TABLET PO SCH (09:43)
[2023-01-24] MEDS: traZODone HCL 100 MG TABLET (FP) PO SCH (21:32)
[2023-01-24] MEDS: THIAMINE HCL 100 MG TABLET (FP) PO SCH (21:32)
[2023-01-24] MEDS: hydrOXYzine PAMOATE 25 MG CAPSULE (FP) PO PRN (21:33)
[2023-01-24] MEDS: METHOCARBAMOL 500 MG TABLET PO PRN (21:33)
[2023-01-24] MEDS: ACETAMINOPHEN 325 MG TABLET (FP) PO PRN (21:35)
[2023-01-25] MEDS: GABAPENTIN 300 MG CAPSULE PO SCH ×3 (06:42→21:38)
[2023-01-25] MEDS: NICOTINE POLACRILEX 4 MG GUM BUC PRN ×7 (06:44→21:43)
[2023-01-25] MEDS: MAGNESIUM HYDROX 2400MG/30ML ORAL SUSPENSION 30 ML CUP PO PRN (08:23)
[2023-01-25] MEDS: ACETAMINOPHEN 325 MG TABLET (FP) PO PRN (08:23)
[2023-01-25] MEDS: NICOTINE 21 MG/24 HOURS TOPICAL PATCH TD SCH (09:52)
[2023-01-25] MEDS: PRENATAL VITAMINS W/ FOLIC ACID TABLET (FP) PO SCH (09:52)
[2023-01-25] MEDS: BACITRACIN 0.9 GM PACKET TP SCH (09:52)
[2023-01-25] MEDS: ESCITALOPRAM OXALATE 10 MG TABLET PO SCH (09:53)
[2023-01-25] MEDS: DOCUSATE SODIUM 100 MG CAPSULE (FP) PO PRN (11:52)
[2023-01-25] MEDS: traZODone HCL 100 MG TABLET (FP) PO SCH (21:38)
[2023-01-25] MEDS: METHOCARBAMOL 500 MG TABLET PO PRN (21:38)
[2023-01-25] MEDS: THIAMINE HCL 100 MG TABLET (FP) PO SCH (21:38)
[2023-01-25] MEDS: hydrOXYzine PAMOATE 25 MG CAPSULE (FP) PO PRN (21:38)
[2023-01-26] MEDS: GABAPENTIN 300 MG CAPSULE PO SCH ×3 (07:01→21:33)
[2023-01-26] MEDS: NICOTINE POLACRILEX 4 MG GUM BUC PRN ×5 (07:03→21:35)
[2023-01-26] MEDS: DOCUSATE SODIUM 100 MG CAPSULE (FP) PO PRN ×2 (07:04→21:33)
[2023-01-26] MEDS: BACITRACIN 0.9 GM PACKET TP SCH (09:48)
[2023-01-26] MEDS: ESCITALOPRAM OXALATE 10 MG TABLET PO SCH (09:49)
[2023-01-26] MEDS: NICOTINE 21 MG/24 HOURS TOPICAL PATCH TD SCH (09:49)
[2023-01-26] MEDS: PRENATAL VITAMINS W/ FOLIC ACID TABLET (FP) PO SCH (09:49)
[2023-01-26] MEDS: hydrOXYzine PAMOATE 25 MG CAPSULE (FP) PO PRN (18:12)
[2023-01-26] MEDS: METHOCARBAMOL 500 MG TABLET PO PRN (18:12)
[2023-01-26] MEDS: traZODone HCL 100 MG TABLET (FP) PO SCH (21:30)
[2023-01-26] MEDS: THIAMINE HCL 100 MG TABLET (FP) PO SCH (21:31)
[2023-01-26] MEDS: MAGNESIUM HYDROX 2400MG/30ML ORAL SUSPENSION 30 ML CUP PO PRN (21:33)
[2023-01-26] MEDS: ACETAMINOPHEN 325 MG TABLET (FP) PO PRN (21:34)
[2023-01-27] MEDS: GABAPENTIN 300 MG CAPSULE PO SCH ×3 (06:32→21:21)
[2023-01-27] MEDS: NICOTINE POLACRILEX 4 MG GUM BUC PRN ×3 (06:34→17:20)
[2023-01-27] MEDS: BACITRACIN 0.9 GM PACKET TP SCH (09:46)
[2023-01-27] MEDS: NICOTINE 21 MG/24 HOURS TOPICAL PATCH TD SCH (09:46)
[2023-01-27] MEDS: PRENATAL VITAMINS W/ FOLIC ACID TABLET (FP) PO SCH (09:46)
[2023-01-27] MEDS: METHOCARBAMOL 500 MG TABLET PO PRN ×2 (09:47→21:21)
[2023-01-27] MEDS: ESCITALOPRAM OXALATE 10 MG TABLET PO SCH (09:47)
[2023-01-27] MEDS: DOCUSATE SODIUM 100 MG CAPSULE (FP) PO PRN (09:49)
[2023-01-27] MEDS: hydrOXYzine PAMOATE 25 MG CAPSULE (FP) PO PRN (17:19)
[2023-01-27] MEDS: THIAMINE HCL 100 MG TABLET (FP) PO SCH (21:21)
[2023-01-27] MEDS: traZODone HCL 100 MG TABLET (FP) PO SCH (21:21)
[2023-01-28] MEDS: GABAPENTIN 300 MG CAPSULE PO SCH ×3 (07:05→21:40)
[2023-01-28] MEDS: NICOTINE 21 MG/24 HOURS TOPICAL PATCH TD SCH (09:41)
[2023-01-28] MEDS: BACITRACIN 0.9 GM PACKET TP SCH (09:41)
[2023-01-28] MEDS: PRENATAL VITAMINS W/ FOLIC ACID TABLET (FP) PO SCH (09:41)
[2023-01-28] MEDS: hydrOXYzine PAMOATE 25 MG CAPSULE (FP) PO PRN ×2 (09:42→21:39)
[2023-01-28] MEDS: DOCUSATE SODIUM 100 MG CAPSULE (FP) PO PRN (09:43)
[2023-01-28] MEDS: ESCITALOPRAM OXALATE 10 MG TABLET PO SCH (09:43)
[2023-01-28] MEDS: NICOTINE POLACRILEX 4 MG GUM BUC PRN ×5 (12:10→21:42)
[2023-01-28] MEDS: METHOCARBAMOL 500 MG TABLET PO PRN (21:40)
[2023-01-28] MEDS: THIAMINE HCL 100 MG TABLET (FP) PO SCH (21:40)
[2023-01-28] MEDS: traZODone HCL 100 MG TABLET (FP) PO SCH (21:40)
[2023-01-29] MEDS: GABAPENTIN 300 MG CAPSULE PO SCH ×3 (06:54→21:26)
[2023-01-29] MEDS: NICOTINE POLACRILEX 4 MG GUM BUC PRN ×6 (06:56→21:27)
[2023-01-29] MEDS: ESCITALOPRAM OXALATE 10 MG TABLET PO SCH (09:49)
[2023-01-29] MEDS: PRENATAL VITAMINS W/ FOLIC ACID TABLET (FP) PO SCH (09:49)
[2023-01-29] MEDS: NICOTINE 21 MG/24 HOURS TOPICAL PATCH TD SCH (09:49)
[2023-01-29] MEDS: BACITRACIN 0.9 GM PACKET TP SCH (09:49)
[2023-01-29] MEDS: METHOCARBAMOL 500 MG TABLET PO PRN ×2 (09:50→21:26)
[2023-01-29] MEDS: traZODone HCL 100 MG TABLET (FP) PO SCH (21:26)
[2023-01-29] MEDS: hydrOXYzine PAMOATE 25 MG CAPSULE (FP) PO PRN (21:26)
[2023-01-29] MEDS: THIAMINE HCL 100 MG TABLET (FP) PO SCH (21:26)
[2023-01-30] MEDS: GABAPENTIN 300 MG CAPSULE PO SCH ×3 (06:23→21:31)
[2023-01-30] MEDS: NICOTINE POLACRILEX 4 MG GUM BUC PRN ×6 (06:25→18:38)
[2023-01-30] MEDS: NICOTINE 21 MG/24 HOURS TOPICAL PATCH TD SCH (09:53)
[2023-01-30] MEDS: BACITRACIN 0.9 GM PACKET TP SCH (09:53)
[2023-01-30] MEDS: PRENATAL VITAMINS W/ FOLIC ACID TABLET (FP) PO SCH (09:53)
[2023-01-30] MEDS: ESCITALOPRAM OXALATE 10 MG TABLET PO SCH (09:54)
[2023-01-30] MEDS: METHOCARBAMOL 500 MG TABLET PO PRN ×2 (09:54→21:32)
[2023-01-30] MEDS: THIAMINE HCL 100 MG TABLET (FP) PO SCH (21:31)
[2023-01-30] MEDS: ACETAMINOPHEN 325 MG TABLET (FP) PO PRN (21:31)
[2023-01-30] MEDS: hydrOXYzine PAMOATE 25 MG CAPSULE (FP) PO PRN (21:31)
[2023-01-30] MEDS: traZODone HCL 100 MG TABLET (FP) PO SCH (21:32)
[2023-01-31] MEDS: GABAPENTIN 300 MG CAPSULE PO SCH ×3 (06:47→21:45)
[2023-01-31] MEDS: NICOTINE POLACRILEX 4 MG GUM BUC PRN ×7 (06:49→21:46)
[2023-01-31] MEDS: PRENATAL VITAMINS W/ FOLIC ACID TABLET (FP) PO SCH (09:45)
[2023-01-31] MEDS: BACITRACIN 0.9 GM PACKET TP SCH (09:45)
[2023-01-31] MEDS: ESCITALOPRAM OXALATE 10 MG TABLET PO SCH (09:45)
[2023-01-31] MEDS: NICOTINE 21 MG/24 HOURS TOPICAL PATCH TD SCH (09:45)
[2023-01-31] MEDS: DOCUSATE SODIUM 100 MG CAPSULE (FP) PO PRN (09:46)
[2023-01-31] MEDS: METHOCARBAMOL 500 MG TABLET PO PRN ×2 (09:47→21:45)
[2023-01-31] MEDS: ACETAMINOPHEN 325 MG TABLET (FP) PO PRN (19:12)
[2023-01-31] MEDS: THIAMINE HCL 100 MG TABLET (FP) PO SCH (21:44)
[2023-01-31] MEDS: traZODone HCL 100 MG TABLET (FP) PO SCH (21:44)
[2023-01-31] MEDS: hydrOXYzine PAMOATE 25 MG CAPSULE (FP) PO PRN (21:45)
[2023-02-01] MEDS: GABAPENTIN 300 MG CAPSULE PO SCH ×3 (06:55→21:36)
[2023-02-01] MEDS: NICOTINE POLACRILEX 4 MG GUM BUC PRN ×7 (06:58→21:36)
[2023-02-01] MEDS: ESCITALOPRAM OXALATE 10 MG TABLET PO SCH (09:44)
[2023-02-01] MEDS: PRENATAL VITAMINS W/ FOLIC ACID TABLET (FP) PO SCH (09:44)
[2023-02-01] MEDS: BACITRACIN 0.9 GM PACKET TP SCH (09:44)
[2023-02-01] MEDS: NICOTINE 21 MG/24 HOURS TOPICAL PATCH TD SCH (09:44)
[2023-02-01] MEDS: hydrOXYzine PAMOATE 25 MG CAPSULE (FP) PO PRN (21:36)
[2023-02-01] MEDS: METHOCARBAMOL 500 MG TABLET PO PRN (21:36)
[2023-02-01] MEDS: THIAMINE HCL 100 MG TABLET (FP) PO SCH (21:36)
[2023-02-01] MEDS: traZODone HCL 100 MG TABLET (FP) PO SCH (21:36)
[2023-02-02] MEDS: GABAPENTIN 300 MG CAPSULE PO SCH ×3 (06:34→21:12)
[2023-02-02] MEDS: NICOTINE POLACRILEX 4 MG GUM BUC PRN ×8 (06:37→22:15)
[2023-02-02] MEDS: BACITRACIN 0.9 GM PACKET TP SCH (09:48)
[2023-02-02] MEDS: ESCITALOPRAM OXALATE 10 MG TABLET PO SCH (09:49)
[2023-02-02] MEDS: NICOTINE 21 MG/24 HOURS TOPICAL PATCH TD SCH (09:49)
[2023-02-02] MEDS: PRENATAL VITAMINS W/ FOLIC ACID TABLET (FP) PO SCH (09:49)
[2023-02-02] MEDS: METHOCARBAMOL 500 MG TABLET PO PRN ×2 (09:50→18:59)
[2023-02-02] MEDS: COLLOIDAL OATMEAL 1 BAR EACH TP PRN (17:39)
[2023-02-02] MEDS: hydrOXYzine PAMOATE 25 MG CAPSULE (FP) PO PRN (18:59)
[2023-02-02] MEDS: traZODone HCL 100 MG TABLET (FP) PO SCH (21:12)
[2023-02-02] MEDS: THIAMINE HCL 100 MG TABLET (FP) PO SCH (21:13)
[2023-02-03] MEDS: GABAPENTIN 300 MG CAPSULE PO SCH (06:59)
[2023-02-03] MEDS: NICOTINE POLACRILEX 4 MG GUM BUC PRN ×2 (07:03→09:31)
[2023-02-03 07:10] VITALS: BP 111/78; PULSE 74; TEMP 97.2
[2023-02-03] MEDS: NICOTINE 21 MG/24 HOURS TOPICAL PATCH TD SCH (09:31)
[2023-02-03] MEDS: ESCITALOPRAM OXALATE 10 MG TABLET PO SCH (09:31)
[2023-02-03] MEDS: BACITRACIN 0.9 GM PACKET TP SCH (09:31)
[2023-02-03] MEDS: PRENATAL VITAMINS W/ FOLIC ACID TABLET (FP) PO SCH (09:31)
[2023-02-03] MEDS: METHOCARBAMOL 500 MG TABLET PO PRN (09:32)
== END 2023-02-03 10:25 | disposition home or self-care (01) | DRG 772 ==
LOC: YASAS 12:37 → Y5N 12:38
PROVIDERS: ADMIT Allergy & Immunology; ATTEND Psychiatry & Neurology Pain Medicine
PROC: HZ42ZZZ Group Counseling for Substance Abuse Treatment, Cognitive-Behavioral (ICD-10-PCS; principal; 2023-01-05)
DX: F10.20 Alcohol dependence, uncomplicated (principal); F14.20 Cocaine dependence, uncomplicated; F11.20 Opioid dependence, uncomplicated; F17.210 Nicotine dependence, cigarettes, uncomplicated; F41.9 Anxiety disorder, unspecified; F32.A Depression, unspecified; G47.00 Insomnia, unspecified; K59.01 Slow transit constipation
CPT/HCPCS: 36415; 86803

== ENCOUNTER 2023-08-16 09:32 | Inpatient (IN) | payer OTHER ==
[2023-08-16 10:37] VITALS: BMI 30.7
[2023-08-16] MEDS ORDERED: IBUPROFEN 400 MG TABLET (FP) PO PRN (11:32)
[2023-08-16] MEDS ORDERED: BISMUTH SUBSALICYLATE 262 MG/15 ML BTL PO PRN (11:32)
[2023-08-16] MEDS ORDERED: BENZOCAINE/MENTHOL (CHLORASEPTIC ) LOZENGE MM PRN (11:32)
[2023-08-16] MEDS ORDERED: MAGNESIUM HYDROX 2400MG/30ML ORAL SUSPENSION 30 ML CUP PO PRN (11:32)
[2023-08-16] MEDS ORDERED: LOPERAMIDE HCL 2 MG CAPSULE PO PRN (11:32)
[2023-08-16] MEDS ORDERED: POLYETHYLENE GLYCOL (HEALTHYLAX) 3350 17 GM PACKET PO PRN (11:32)
[2023-08-16] MEDS ORDERED: MAG HYDROX/AL HYDROX/SIMETH 30 ML UNIT-DOSE CUP PO PRN (11:32)
[2023-08-16] MEDS ORDERED: BENZONATATE 200 MG CAPSULE PO PRN (11:32)
[2023-08-16] MEDS ORDERED: guaiFENesin 600 MG TABLET.ER (FP) PO PRN (11:32)
[2023-08-16] MEDS ORDERED: NALOXONE HCL (KLOXXADO) 8 MG SPRAY NS PRN (11:32)
[2023-08-16] MEDS ORDERED: NALOXONE HCL 0.4 MG/ML VIAL IM PRN (11:32)
[2023-08-16] MEDS ORDERED: ONDANSETRON *ODT* 4 MG TABLET SL PRN (11:32)
[2023-08-16] MEDS ORDERED: DICYCLOMINE HCL 10 MG CAPSULE PO PRN (11:32)
[2023-08-16] MEDS ORDERED: ACETAMINOPHEN 325 MG TABLET (FP) PO PRN (11:32)
[2023-08-16] MEDS ORDERED: NICOTINE POLACRILEX 4 MG GUM BUC ONE (12:14)
[2023-08-16] MEDS: NICOTINE POLACRILEX 4 MG GUM BUC PRN (12:16)
[2023-08-16] MEDS ORDERED: chlordiazePOXIDE HCL 25 MG CAPSULE ONE (12:21)
[2023-08-16] MEDS: chlordiazePOXIDE HCL 25 MG CAPSULE PO SCH (12:24)
[2023-08-16] MEDS: NICOTINE 21 MG/24 HOURS TOPICAL PATCH TD SCH (13:07)
[2023-08-16] MEDS: GABAPENTIN 400 MG CAPSULE PO SCH (15:50)
[2023-08-16 16:13] LABS: HIV INTERPRETATION NEGATIVE (NEGATIVE)
[2023-08-16] MEDS: chlordiazePOXIDE HCL 25 MG CAPSULE PO PRN (19:53)
[2023-08-16] MEDS ORDERED: traZODone HCL 100 MG TABLET (FP) PO SCH (22:00)
[2023-08-16] MEDS: THIAMINE 100 MG TABLET PO SCH (22:13)
[2023-08-16] MEDS: MELATONIN 5 MG TABLETS PO SCH (23:02)
[2023-08-17] MEDS ORDERED: methaDONE HCL 40 MG DISPERSABLE TABLET PO SCH (10:00)
[2023-08-17] MEDS: PRENATAL VITAMINS W/ FOLIC ACID TABLET (FP) PO SCH (10:07)
[2023-08-17 10:27] LABS: POTASSIUM 4.2 mmol/L (3.5-5.1)
[2023-08-17 10:31] LABS: BLOOD UREA NITROGEN 8.8 mg/dL (7-18); CALCIUM 9.2 mg/dL (8.5-10.1)
[2023-08-17 10:34] LABS: HEMATOCRIT 38.3 % (35.4-49); HEMOGLOBIN 12.8 GM/dL (11.7-16.9); MCH 27.1 pg (25.7-33.7); MCHC 33.4 g/dl (32.0-35.9); MEAN PLT VOLUME 8.4 fl (7.5-11.1); PLATELET COUNT 254 10^3/uL (134-434); RBC 4.73 M/mm3 (4.00-5.60)
[2023-08-17 10:35] LABS: CREATININE 0.8 mg/dL (0.55-1.3)
[2023-08-17 10:37] LABS: BILIRUBIN,TOTAL 0.4 mg/dL (0.2-1); TOT PROT 7.9 g/dl (6.4-8.2)
[2023-08-17] MEDS: LACTULOSE 20 GM/30 ML UDC (FOR ORAL USE ONLY) PO SCH (14:49)
[2023-08-17] MEDS: traZODone HCL 50 MG TABLET (FP) PO PRN (22:32)
[2023-08-18] MEDS: chlordiazePOXIDE HCL 25 MG CAPSULE PO SCH (06:36)
[2023-08-18] MEDS ORDERED: methaDONE HCL 10 MG TABLET PO ONE (07:22)
[2023-08-18] MEDS: IBUPROFEN 600 MG TABLET (FP) PO PRN (17:24)
[2023-08-18] MEDS: METHOCARBAMOL 500 MG TABLET PO PRN (17:26)
[2023-08-19] MEDS: chlordiazePOXIDE HCL 10 MG CAPSULE PO SCH (05:22)
[2023-08-19] MEDS: chlordiazePOXIDE HCL 10 MG CAPSULE PO PRN (09:08)
[2023-08-19] MEDS: ACAMPROSATE CALCIUM 333 MG TABLET.DR PO SCH (13:16)
[2023-08-19] MEDS: hydrOXYzine PAMOATE 25 MG CAPSULE (FP) PO PRN (18:26)
[2023-08-20] MEDS: chlordiazePOXIDE HCL 10 MG CAPSULE PO SCH (05:26)
[2023-08-20 08:40] VITALS: BP 119/80; PULSE 95; RESP 18; TEMP 98.4
[2023-08-21] MEDS ORDERED: chlordiazePOXIDE HCL 10 MG CAPSULE PO ONE (05:00)
== END 2023-08-20 11:52 | disposition home or self-care (01) | DRG 773 ==
LOC: YASAS 09:32 → Y6N 12:05
PROVIDERS: ADMIT Allergy & Immunology; ATTEND Surgery
PROC: HZ2ZZZZ Detoxification Services for Substance Abuse Treatment (ICD-10-PCS; principal; 2023-08-16)
DX: F10.230 Alcohol dependence with withdrawal, uncomplicated (principal); F14.20 Cocaine dependence, uncomplicated; F11.20 Opioid dependence, uncomplicated; F17.210 Nicotine dependence, cigarettes, uncomplicated; F19.282 Other psychoactive substance dependence with psychoactive substance-induced sleep disorder; F41.9 Anxiety disorder, unspecified; F32.A Depression, unspecified; F90.9 Attention-deficit hyperactivity disorder, unspecified type; R79.89 Other specified abnormal findings of blood chemistry
CPT/HCPCS: 36415; 80053; 80305; 80307; 82140; 85027; 86780; 87389; 87522; 93005; 93010

== ENCOUNTER 2024-02-01 12:08 | Inpatient (IN) | payer OTHER ==
[2024-02-01 13:12] VITALS: BMI 30.9
[2024-02-01] MEDS ORDERED: BENZOCAINE/MENTHOL (CHLORASEPTIC ) LOZENGE MM PRN (13:26)
[2024-02-01] MEDS ORDERED: IBUPROFEN 400 MG TABLET (FP) PO PRN (13:26)
[2024-02-01] MEDS ORDERED: LOPERAMIDE HCL 2 MG CAPSULE PO PRN (13:26)
[2024-02-01] MEDS ORDERED: guaiFENesin 600 MG TABLET.ER (FP) PO PRN (13:26)
[2024-02-01] MEDS ORDERED: BISMUTH SUBSALICYLATE 524 MG/30 ML PO PRN (13:26)
[2024-02-01] MEDS ORDERED: ACETAMINOPHEN 325 MG TABLET (FP) PO PRN (13:26)
[2024-02-01] MEDS ORDERED: BENZONATATE 200 MG CAPSULE PO PRN (13:26)
[2024-02-01] MEDS ORDERED: IBUPROFEN 600 MG TABLET (FP) PO PRN (13:26)
[2024-02-01] MEDS ORDERED: ONDANSETRON *ODT* 4 MG TABLET SL PRN (13:26)
[2024-02-01] MEDS ORDERED: POLYETHYLENE GLYCOL (HEALTHYLAX) 3350 17 GM PACKET PO PRN (13:26)
[2024-02-01] MEDS ORDERED: NALOXONE (NARCAN) HCL 4 MG/0.1 ML SPRAY NS PRN (13:26)
[2024-02-01] MEDS ORDERED: MAG HYDROX/AL HYDROX/SIMETH 30 ML UNIT-DOSE CUP PO PRN (13:26)
[2024-02-01] MEDS ORDERED: DICYCLOMINE HCL 10 MG CAPSULE PO PRN (13:26)
[2024-02-01] MEDS ORDERED: chlordiazePOXIDE HCL 25 MG CAPSULE ONE (14:52)
[2024-02-01] MEDS ORDERED: NICOTINE POLACRILEX 4 MG GUM BUC ONE (14:52)
[2024-02-01] MEDS: NICOTINE POLACRILEX 4 MG GUM BUC PRN (15:01)
[2024-02-01] MEDS: chlordiazePOXIDE HCL 25 MG CAPSULE PO PRN (15:01)
[2024-02-01] MEDS: chlordiazePOXIDE HCL 25 MG CAPSULE PO SCH (17:24)
[2024-02-01] MEDS: THIAMINE 100 MG TABLET PO SCH (22:10)
[2024-02-01] MEDS: MELATONIN 5 MG TABLETS PO SCH (22:10)
[2024-02-02] MEDS ORDERED: methaDONE HCL 10 MG TABLET PO ONE (09:13)
[2024-02-02] MEDS: PRENATAL VITAMINS W/ FOLIC ACID TABLET (FP) PO SCH (09:56)
[2024-02-02] MEDS: NICOTINE POLACRILEX 4 MG LOZENGE BC PRN (10:54)
[2024-02-02 12:50] LABS: HEMATOCRIT 37.3 % (35.4-49); HEMOGLOBIN 12.1 GM/dL (11.7-16.9); MCH 26.1 pg (25.7-33.7); MCHC 32.4 g/dl (32.0-35.9); MEAN CELL VOLUME 80.5 fl (80-96); MEAN PLT VOLUME 8.5 fl (7.5-11.1); PLATELET COUNT 283 10^3/uL (134-434); RBC 4.63 M/mm3 (4.00-5.60); RDW 15.1 % (11.9-15.9); WHITE BLOOD COUNT 6.5 K/mm3 (4.0-10.0)
[2024-02-02 13:01] LABS: POTASSIUM 3.9 mmol/L (3.5-5.1)
[2024-02-02 13:40] LABS: ALBUMIN 3.4 g/dl (3.4-5.0)
[2024-02-02 13:42] LABS: CREATININE 0.7 mg/dL (0.55-1.3)
[2024-02-02 13:43] LABS: BILIRUBIN,TOTAL 0.4 mg/dL (0.2-1); TOT PROT 6.6 g/dl (6.4-8.2)
[2024-02-02] MEDS: GABAPENTIN 400 MG CAPSULE PO SCH (13:48)
[2024-02-02] MEDS: METHOCARBAMOL 500 MG TABLET PO PRN (19:16)
[2024-02-02] MEDS: traZODone HCL 50 MG TABLET (FP) PO SCH (22:28)
[2024-02-03] MEDS: chlordiazePOXIDE HCL 25 MG CAPSULE PO SCH (05:55)
[2024-02-03] MEDS ORDERED: methaDONE HCL 10 MG TABLET PO SCH (06:00)
[2024-02-04] MEDS: chlordiazePOXIDE HCL 10 MG CAPSULE PO SCH (05:56)
[2024-02-04] MEDS: MAGNESIUM HYDROX 2400MG/30ML ORAL SUSPENSION 30 ML CUP PO PRN (09:16)
[2024-02-04] MEDS: chlordiazePOXIDE HCL 10 MG CAPSULE PO PRN (14:33)
[2024-02-04] MEDS: NICOTINE 21 MG/24 HOURS TOPICAL PATCH TD SCH (14:33)
[2024-02-04] MEDS: NICOTINE POLACRILEX 2 MG GUM BUC PRN (14:42)
[2024-02-05] MEDS: chlordiazePOXIDE HCL 10 MG CAPSULE PO SCH (05:54)
[2024-02-05] MEDS: NICOTINE POLACRILEX 4 MG GUM BUC PRN (10:45)
[2024-02-05] MEDS: NALOXONE (NYS OPIOID OVERDOSE PROGRAM) 4 MG/0.1 ML SPRAY NS SCH (11:30)
[2024-02-05] MEDS: chlordiazePOXIDE 5 MG CAPSULE PO ONE (12:38)
[2024-02-06] MEDS: chlordiazePOXIDE HCL 10 MG CAPSULE PO ONE (06:06)
[2024-02-06 06:49] VITALS: BP 126/78; PULSE 62; RESP 16; TEMP 97.3
== END 2024-02-06 09:00 | disposition home or self-care (01) | DRG 773 ==
LOC: YASAS 12:08 → Y6N 15:12
PROVIDERS: ADMIT Allergy & Immunology; ATTEND Surgery
PROC: HZ2ZZZZ Detoxification Services for Substance Abuse Treatment (ICD-10-PCS; principal; 2024-02-01)
DX: F10.230 Alcohol dependence with withdrawal, uncomplicated (principal); F11.20 Opioid dependence, uncomplicated; F14.20 Cocaine dependence, uncomplicated; F12.20 Cannabis dependence, uncomplicated; F17.210 Nicotine dependence, cigarettes, uncomplicated; F19.282 Other psychoactive substance dependence with psychoactive substance-induced sleep disorder; F19.280 Other psychoactive substance dependence with psychoactive substance-induced anxiety disorder; F39 Unspecified mood [affective] disorder
CPT/HCPCS: 36415; 80053; 80305; 80307; 85027; 86780

== ENCOUNTER 2024-03-17 11:33 | Inpatient (IN) | payer OTHER ==
[2024-03-17 11:59] VITALS: BMI 30.1
[2024-03-17] MEDS ORDERED: MAG HYDROX/AL HYDROX/SIMETH 30 ML UNIT-DOSE CUP PO PRN (13:25)
[2024-03-17] MEDS ORDERED: LOPERAMIDE HCL 2 MG CAPSULE PO PRN (13:25)
[2024-03-17] MEDS ORDERED: NALOXONE (NARCAN) HCL 4 MG/0.1 ML SPRAY NS PRN (13:25)
[2024-03-17] MEDS ORDERED: IBUPROFEN 400 MG TABLET (FP) PO PRN (13:25)
[2024-03-17] MEDS ORDERED: POLYETHYLENE GLYCOL (HEALTHYLAX) 3350 17 GM PACKET PO PRN (13:25)
[2024-03-17] MEDS ORDERED: MAGNESIUM HYDROX 2400MG/30ML ORAL SUSPENSION 30 ML CUP PO PRN (13:25)
[2024-03-17] MEDS ORDERED: BENZOCAINE/MENTHOL (CHLORASEPTIC ) LOZENGE MM PRN (13:25)
[2024-03-17] MEDS ORDERED: IBUPROFEN 600 MG TABLET (FP) PO PRN (13:25)
[2024-03-17] MEDS ORDERED: guaiFENesin 600 MG TABLET.ER (FP) PO PRN (13:25)
[2024-03-17] MEDS ORDERED: BISMUTH SUBSALICYLATE 524 MG/30 ML PO PRN (13:25)
[2024-03-17] MEDS ORDERED: DICYCLOMINE HCL 10 MG CAPSULE PO PRN (13:25)
[2024-03-17] MEDS ORDERED: BENZONATATE 200 MG CAPSULE PO PRN (13:25)
[2024-03-17] MEDS ORDERED: ACETAMINOPHEN 325 MG TABLET (FP) PO PRN (13:25)
[2024-03-17] MEDS: chlordiazePOXIDE HCL 25 MG CAPSULE PO PRN (14:11)
[2024-03-17] MEDS: NICOTINE POLACRILEX 4 MG GUM BUC PRN (14:12)
[2024-03-17] MEDS: chlordiazePOXIDE HCL 25 MG CAPSULE PO SCH (16:54)
[2024-03-17] MEDS: ONDANSETRON *ODT* 4 MG TABLET SL PRN (19:09)
[2024-03-17] MEDS: METHOCARBAMOL 500 MG TABLET PO PRN (22:07)
[2024-03-17] MEDS: MELATONIN 5 MG TABLETS PO SCH (22:07)
[2024-03-17] MEDS: THIAMINE 100 MG TABLET PO SCH (22:07)
[2024-03-18 08:51] LABS: CALCIUM 8.9 mg/dL (8.5-10.1); HEMATOCRIT 35.2 % (35.4-49); HEMOGLOBIN 11.6 GM/dL (11.7-16.9); MCH 26.2 pg (25.7-33.7); MCHC 32.9 g/dl (32.0-35.9); MEAN CELL VOLUME 79.4 fl (80-96); MEAN PLT VOLUME 8.1 fl (7.5-11.1); PLATELET COUNT 269 10^3/uL (134-434); RBC 4.44 M/mm3 (4.00-5.60); RDW 14.4 % (11.9-15.9); WHITE BLOOD COUNT 6.5 K/mm3 (4.0-10.0)
[2024-03-18 08:52] LABS: ALBUMIN 3.4 g/dl (3.4-5.0); BLOOD UREA NITROGEN 7.9 mg/dL (7-18); CO2 29 mmol/L (21-32); GLUCOSE,RANDOM 88 mg/dL (74-106)
[2024-03-18] MEDS: methaDONE HCL 10 MG TABLET PO ONE (08:53)
[2024-03-18 08:55] LABS: CREATININE 0.7 mg/dL (0.55-1.3); SGOT/AST 15 U/L (15-37); SGPT/ALT 15 U/L (13-61)
[2024-03-18 08:56] LABS: ANION GAP 4 mmol/L (4-13); BILIRUBIN,TOTAL 0.3 mg/dL (0.2-1); CHLORIDE 108 mmol/L (98-107); POTASSIUM 4.2 mmol/L (3.5-5.1); SODIUM 141 mmol/L (136-145); TOT PROT 6.4 g/dl (6.4-8.2)
[2024-03-18 08:57] LABS: ALK PHOS 84 U/L (45-117)
[2024-03-18] MEDS: PRENATAL VITAMINS W/ FOLIC ACID TABLET (FP) PO SCH (10:32)
[2024-03-18] MEDS: ESCITALOPRAM OXALATE 10 MG TABLET PO SCH (11:53)
[2024-03-18] MEDS: GABAPENTIN 400 MG CAPSULE PO SCH (13:05)
[2024-03-18] MEDS: traZODone HCL 50 MG TABLET (FP) PO SCH (22:03)
[2024-03-19] MEDS: chlordiazePOXIDE HCL 25 MG CAPSULE PO SCH (05:53)
[2024-03-19] MEDS ORDERED: methaDONE HCL 10 MG TABLET PO SCH (06:00)
[2024-03-19] MEDS: hydrOXYzine PAMOATE 25 MG CAPSULE (FP) PO PRN (10:32)
[2024-03-20] MEDS ORDERED: chlordiazePOXIDE HCL 10 MG CAPSULE PO PRN
[2024-03-20] MEDS: chlordiazePOXIDE HCL 10 MG CAPSULE PO SCH (05:41)
[2024-03-21] MEDS: chlordiazePOXIDE HCL 10 MG CAPSULE PO SCH (06:01)
[2024-03-21] MEDS: NALOXONE (NYS OPIOID OVERDOSE PROGRAM) 4 MG/0.1 ML SPRAY NS SCH (13:44)
[2024-03-21 17:30] VITALS: RESP 18
[2024-03-22] MEDS: chlordiazePOXIDE HCL 10 MG CAPSULE PO ONE (05:56)
[2024-03-22 08:56] VITALS: TEMP 97.6
[2024-03-22 12:48] VITALS: BP 129/69; PULSE 80
== END 2024-03-22 12:48 | disposition other institution (70) | DRG 773 ==
LOC: YASAS 11:33 → Y6N 13:57
PROVIDERS: ADMIT Allergy & Immunology; ATTEND Surgery
PROC: HZ2ZZZZ Detoxification Services for Substance Abuse Treatment (ICD-10-PCS; principal; 2024-03-17)
DX: F10.230 Alcohol dependence with withdrawal, uncomplicated (principal); F14.20 Cocaine dependence, uncomplicated; F11.20 Opioid dependence, uncomplicated; F12.20 Cannabis dependence, uncomplicated; F17.210 Nicotine dependence, cigarettes, uncomplicated; F33.1 Major depressive disorder, recurrent, moderate; F19.282 Other psychoactive substance dependence with psychoactive substance-induced sleep disorder
CPT/HCPCS: 36415; 80053; 80305; 80307; 85027; 86780; 87811; 93005; 93010; Q0162

== ENCOUNTER 2024-03-22 12:54 | Inpatient (IN) | payer OTHER ==
[2024-03-22] MEDS ORDERED: ACETAMINOPHEN 325 MG TABLET (FP) PO PRN (13:34)
[2024-03-22] MEDS ORDERED: LOPERAMIDE HCL 2 MG CAPSULE PO PRN (13:34)
[2024-03-22] MEDS ORDERED: NALOXONE (NARCAN) HCL 4 MG/0.1 ML SPRAY NS PRN (13:34)
[2024-03-22] MEDS ORDERED: MAG HYDROX/AL HYDROX/SIMETH 30 ML UNIT-DOSE CUP PO PRN (13:34)
[2024-03-22] MEDS ORDERED: IBUPROFEN 400 MG TABLET (FP) PO PRN (13:34)
[2024-03-22] MEDS ORDERED: BENZONATATE 200 MG CAPSULE PO PRN (13:34)
[2024-03-22] MEDS ORDERED: MAGNESIUM HYDROX 2400MG/30ML ORAL SUSPENSION 30 ML CUP PO PRN (13:34)
[2024-03-22] MEDS ORDERED: guaiFENesin 600 MG TABLET.ER (FP) PO PRN (13:34)
[2024-03-22] MEDS ORDERED: POLYETHYLENE GLYCOL (HEALTHYLAX) 3350 17 GM PACKET PO PRN (13:34)
[2024-03-22] MEDS ORDERED: IBUPROFEN 600 MG TABLET (FP) PO PRN (13:34)
[2024-03-22] MEDS: GABAPENTIN 400 MG CAPSULE PO SCH (14:11)
[2024-03-22] MEDS: NICOTINE POLACRILEX 4 MG GUM BUC PRN (14:51)
[2024-03-22] MEDS: hydrOXYzine PAMOATE 25 MG CAPSULE (FP) PO PRN (17:00)
[2024-03-22] MEDS: NICOTINE POLACRILEX 4 MG LOZENGE BC PRN (17:01)
[2024-03-22] MEDS: THIAMINE 100 MG TABLET PO SCH (21:05)
[2024-03-22] MEDS: MELATONIN 5 MG TABLETS PO SCH (21:05)
[2024-03-22] MEDS: traZODone HCL 50 MG TABLET (FP) PO SCH (21:05)
[2024-03-23] MEDS ORDERED: methaDONE HCL 40 MG DISPERSABLE TABLET PO SCH (06:00)
[2024-03-23] MEDS: PRENATAL VITAMINS W/ FOLIC ACID TABLET (FP) PO SCH (10:31)
[2024-03-23] MEDS: ESCITALOPRAM OXALATE 10 MG TABLET PO SCH (10:31)
[2024-03-23 13:26] LABS: HIV INTERPRETATION NEGATIVE (NEGATIVE)
[2024-03-25 06:27] VITALS: RESP 16
[2024-03-27] MEDS: SUVOREXANT 10 MG TABLET PO PRN (21:05)
[2024-03-28] MEDS ORDERED: OXYMETAZOLINE 0.05% NASAL SOLUTION 15 ML BOTTLE NS PRN (10:27)
[2024-03-28] MEDS ORDERED: guaiFENesin 600 MG TABLET.ER (FP) PO PRN (10:27)
[2024-03-28] MEDS ORDERED: BENZONATATE 200 MG CAPSULE PO PRN (10:28)
[2024-03-28] MEDS ORDERED: P-EPHED 60MG/TRIPROLIDI 2.5MG TABLET PO PRN (10:28)
[2024-03-28] MEDS: BENZOCAINE/MENTHOL (CHLORASEPTIC ) LOZENGE MM PRN (10:28)
[2024-03-29 06:16] VITALS: BP 129/76; PULSE 78; TEMP 96.9
[2024-03-29] MEDS: NALOXONE (NYS OPIOID OVERDOSE PROGRAM) 4 MG/0.1 ML SPRAY NS SCH (09:16)
== END 2024-03-29 09:37 | disposition home or self-care (01) | DRG 772 ==
LOC: YASAS 12:54 → Y3W 13:25
PROVIDERS: ADMIT Psychiatry & Neurology Pain Medicine; ATTEND Psychiatry & Neurology Pain Medicine
PROC: HZ42ZZZ Group Counseling for Substance Abuse Treatment, Cognitive-Behavioral (ICD-10-PCS; principal; 2024-03-22)
DX: F11.20 Opioid dependence, uncomplicated (principal); F10.20 Alcohol dependence, uncomplicated; F14.20 Cocaine dependence, uncomplicated; F12.20 Cannabis dependence, uncomplicated; F17.210 Nicotine dependence, cigarettes, uncomplicated; F19.282 Other psychoactive substance dependence with psychoactive substance-induced sleep disorder; F32.A Depression, unspecified; F41.9 Anxiety disorder, unspecified; F90.9 Attention-deficit hyperactivity disorder, unspecified type
CPT/HCPCS: 0241U-QW; 36415; 86803; 87389

== ENCOUNTER 2024-06-11 13:56 | Inpatient (IN) | payer OTHER ==
[2024-06-11 14:30] VITALS: BMI 27.6
[2024-06-11] MEDS ORDERED: BENZONATATE 200 MG CAPSULE PO PRN (15:12)
[2024-06-11] MEDS ORDERED: DICYCLOMINE HCL 10 MG CAPSULE PO PRN (15:12)
[2024-06-11] MEDS ORDERED: BENZOCAINE/MENTHOL (CHLORASEPTIC ) LOZENGE MM PRN (15:12)
[2024-06-11] MEDS ORDERED: guaiFENesin 600 MG TABLET.ER (FP) PO PRN (15:12)
[2024-06-11] MEDS ORDERED: BISMUTH SUBSALICYLATE 524 MG/30 ML PO PRN (15:12)
[2024-06-11] MEDS ORDERED: POLYETHYLENE GLYCOL (HEALTHYLAX) 3350 17 GM PACKET PO PRN (15:12)
[2024-06-11] MEDS ORDERED: MAGNESIUM HYDROX 2400MG/30ML ORAL SUSPENSION 30 ML CUP PO PRN (15:12)
[2024-06-11] MEDS ORDERED: LOPERAMIDE HCL 2 MG CAPSULE PO PRN (15:12)
[2024-06-11] MEDS ORDERED: NALOXONE (NARCAN) HCL 4 MG/0.1 ML SPRAY NS PRN (15:12)
[2024-06-11] MEDS ORDERED: MAG HYDROX/AL HYDROX/SIMETH 30 ML UNIT-DOSE CUP PO PRN (15:12)
[2024-06-11] MEDS ORDERED: ONDANSETRON *ODT* 4 MG TABLET SL PRN (15:12)
[2024-06-11] MEDS ORDERED: chlordiazePOXIDE HCL 25 MG CAPSULE ONE (17:08)
[2024-06-11] MEDS ORDERED: cloNIDine HCL 0.1 MG TABLET ONE (17:09)
[2024-06-11] MEDS ORDERED: NICOTINE POLACRILEX 4 MG GUM BUC ONE (17:14)
[2024-06-11] MEDS: chlordiazePOXIDE HCL 25 MG CAPSULE PO SCH (17:17)
[2024-06-11] MEDS: cloNIDine HCL 0.1 MG TABLET PO SCH (17:19)
[2024-06-11] MEDS: NICOTINE POLACRILEX 4 MG GUM BUC PRN (17:20)
[2024-06-11] MEDS: ACETAMINOPHEN 325 MG TABLET (FP) PO PRN (18:16)
[2024-06-11] MEDS: ACAMPROSATE CALCIUM 333 MG TABLET.DR PO SCH (22:06)
[2024-06-11] MEDS: GABAPENTIN 400 MG CAPSULE PO SCH (22:07)
[2024-06-11] MEDS: THIAMINE 100 MG TABLET PO SCH (22:07)
[2024-06-11] MEDS: MELATONIN 5 MG TABLETS PO SCH (22:07)
[2024-06-11] MEDS: SULFAMETHOXAZOLE/TRIMETHOPRIM 800MG/160MG D.S. TABLET PO SCH (22:07)
[2024-06-11] MEDS: IBUPROFEN 600 MG TABLET (FP) PO PRN (22:56)
[2024-06-12] MEDS ORDERED: methaDONE HCL 10 MG TABLET PO SCH (06:00)
[2024-06-12 09:43] LABS: HEMATOCRIT 38.9 % (40.1-51.0); HEMOGLOBIN 12.3 g/dL (13.7-17.5); MCHC 31.6 g/dl (32.3-36.5); MEAN CELL VOLUME 78.9 fl (79.0-92.2); MEAN PLT VOLUME 10.1 fl (9.4-12.4); PLATELET COUNT 368 x10^3/uL (163-337); RDW 14.6 % (12.0-15.6)
[2024-06-12 09:45] LABS: CHLORIDE 102 mmol/L (98-107); POTASSIUM 4.1 mmol/L (3.5-5.1); SODIUM 135 mmol/L (136-145)
[2024-06-12 09:56] LABS: CALCIUM 9.5 mg/dL (8.5-10.1)
[2024-06-12 09:58] LABS: ALBUMIN 3.9 g/dl (3.4-5.0); ANION GAP 9 mmol/L (4-13); BLOOD UREA NITROGEN 12.3 mg/dL (7-18); CO2 24 mmol/L (21-32); GLUCOSE,RANDOM 108 mg/dL (74-106)
[2024-06-12 10:00] LABS: CREATININE 0.8 mg/dL (0.55-1.3); SGOT/AST 25 U/L (15-37); SGPT/ALT 34 U/L (13-61)
[2024-06-12 10:01] LABS: BILIRUBIN,TOTAL 0.6 mg/dL (0.2-1)
[2024-06-12 10:02] LABS: TOT PROT 7.6 g/dl (6.4-8.2)
[2024-06-12 10:04] LABS: ALK PHOS 97 U/L (45-117)
[2024-06-12] MEDS: METHOCARBAMOL 500 MG TABLET PO PRN (10:08)
[2024-06-12] MEDS: NICOTINE 21 MG/24 HOURS TOPICAL PATCH TD SCH (10:12)
[2024-06-12] MEDS: methaDONE HCL 10 MG TABLET PO ONE (10:12)
[2024-06-12] MEDS: PRENATAL VITAMINS W/ FOLIC ACID TABLET (FP) PO SCH (10:12)
[2024-06-12] MEDS: chlordiazePOXIDE HCL 25 MG CAPSULE PO PRN (14:32)
[2024-06-12 15:46] LABS: HIV INTERPRETATION NEGATIVE (NEGATIVE)
[2024-06-12] MEDS: MIRTAZAPINE 15 MG TABLET (FP) PO SCH (22:20)
[2024-06-12] MEDS: SUVOREXANT 10 MG TABLET PO PRN (22:23)
[2024-06-12] MEDS: IBUPROFEN 400 MG TABLET (FP) PO PRN (22:24)
[2024-06-13] MEDS: chlordiazePOXIDE HCL 25 MG CAPSULE PO SCH (05:23)
[2024-06-13] MEDS: cloNIDine HCL 0.1 MG TABLET PO PRN (07:14)
[2024-06-13] MEDS: methaDONE HCL 10 MG TABLET PO ONE (10:38)
[2024-06-13] MEDS: hydrOXYzine PAMOATE 25 MG CAPSULE (FP) PO PRN (16:50)
[2024-06-13] MEDS: CARBAMIDE PEROXIDE 6.5% OTIC 15 ML BOTTLE AU SCH (22:21)
[2024-06-14] MEDS ORDERED: chlordiazePOXIDE HCL 10 MG CAPSULE PO PRN
[2024-06-14] MEDS: chlordiazePOXIDE HCL 10 MG CAPSULE PO SCH (05:55)
[2024-06-14 09:09] VITALS: BP 143/82; PULSE 62; RESP 18; TEMP 96.9
[2024-06-14] MEDS ORDERED: methaDONE HCL 10 MG TABLET PO ONE (10:00)
[2024-06-14] MEDS: methaDONE HCL 10 MG TABLET PO ONE (10:01)
[2024-06-15] MEDS ORDERED: chlordiazePOXIDE HCL 10 MG CAPSULE PO SCH (05:00)
[2024-06-15] MEDS ORDERED: methaDONE HCL 10 MG TABLET PO ONE (10:00)
[2024-06-16] MEDS ORDERED: chlordiazePOXIDE HCL 10 MG CAPSULE PO ONE (05:00)
[2024-06-16] MEDS ORDERED: methaDONE HCL 10 MG TABLET PO ONE ×2 (10:00)
== END 2024-06-14 12:07 | disposition home or self-care (01) | DRG 773 ==
LOC: YASAS 13:56 → Y3N 16:51
PROVIDERS: ADMIT Allergy & Immunology; ATTEND Allergy & Immunology
PROC: HZ2ZZZZ Detoxification Services for Substance Abuse Treatment (ICD-10-PCS; principal; 2024-06-11)
DX: F10.230 Alcohol dependence with withdrawal, uncomplicated (principal); F11.20 Opioid dependence, uncomplicated; F13.20 Sedative, hypnotic or anxiolytic dependence, uncomplicated; F14.20 Cocaine dependence, uncomplicated; F17.210 Nicotine dependence, cigarettes, uncomplicated; F19.282 Other psychoactive substance dependence with psychoactive substance-induced sleep disorder; F43.10 Post-traumatic stress disorder, unspecified; F41.9 Anxiety disorder, unspecified; F32.A Depression, unspecified
CPT/HCPCS: 36415; 71046-TC-FY; 80053; 80305; 80307; 85027; 86780; 87389; 93005; 93010